=== PATIENT | male | born 1950 | race Caucasian/White ===

== ENCOUNTER 2020-06-16 12:34 | Outpatient (REF) | payer MEDICARE, OTHER, SELFPAY ==
--- NOTE | 2020-06-16 13:13 | XR_ITS ---
EXAMINATION: XR SHOULDER, LEFT CLINICAL INFORMATION: Left shoulder pain COMPARISON: Radiographs left shoulder 05/04/2019. TECHNIQUE: Left shoulder is imaged in 3 views. FINDINGS: There is no fracture, dislocation, destructive process. The acromioclavicular alignment is normal. Again, there are degenerative changes acromioclavicular joint and some mild spurring superior lateral acromium likely at origin deltoid. There is curvilinear calcification possibly in region of subscapularis best seen on transscapular view, in retrospect stable. Otherwise, no visible rotator cuff calcifications. XR/XR shoulder LT min 2V IMPRESSION: 1. Degenerative changes acromioclavicular joint with spurring superior lateral acromium. 2. Benign calcification possibly in region of distal subscapularis. 3. Findings similar to prior exam 05/04/2019.
[2020-06-16 14:06] LABS: INTERNATIONAL NORM RATIO 2.6 (0.9-1.1); Prothrombin Time 31.7 SEC (10.8-13.0)
== END 2020-06-16 12:35 | disposition home or self-care (01) ==
LOC: HO.HMGCLDS 12:34
PROVIDERS: PCP Nurse Practitioner Family; Visit Provider Nurse Practitioner Family
DX: M25.512 Pain in left shoulder (principal)
CPT/HCPCS: 36415; 73030; 85610

== ENCOUNTER → 2020-07-14 09:03 | Outpatient (BNVA) | payer MEDICARE, OTHER, SELFPAY | PROVIDERS: PCP Nurse Practitioner Family; Visit Provider Internal Medicine | DX: I48.0 Paroxysmal atrial fibrillation (principal); Z51.81 Encounter for therapeutic drug level monitoring; Z79.01 Long term (current) use of anticoagulants | CPT/HCPCS: 85610; 99211 ==

== ENCOUNTER → 2020-07-21 09:38 | Outpatient (BNVA) | payer MEDICARE, OTHER, SELFPAY | PROVIDERS: PCP Nurse Practitioner Family; Visit Provider Internal Medicine | DX: I48.0 Paroxysmal atrial fibrillation (principal); Z79.01 Long term (current) use of anticoagulants; Z51.81 Encounter for therapeutic drug level monitoring | CPT/HCPCS: 85610; 99211 ==

== ENCOUNTER → 2020-07-30 09:16 | Outpatient (BNVA) | payer MEDICARE, OTHER, SELFPAY | PROVIDERS: PCP Nurse Practitioner Family; Visit Provider Internal Medicine | DX: I48.0 Paroxysmal atrial fibrillation (principal); Z51.81 Encounter for therapeutic drug level monitoring; Z79.01 Long term (current) use of anticoagulants | CPT/HCPCS: 85610; 99211 ==

== ENCOUNTER 2020-08-19 07:21 | Outpatient (REF) | payer MEDICARE, OTHER, SELFPAY | END 2020-08-19 07:22 | disposition home or self-care (01) | LOC: HO.LAB 07:21 | PROVIDERS: PCP Nurse Practitioner Family; Visit Provider Internal Medicine | DX: Z20.828 Contact with and (suspected) exposure to other viral communicable diseases (principal) | CPT/HCPCS: C9803; U0003 ==

== ENCOUNTER → 2020-08-27 09:08 | Outpatient (BNVA) | payer MEDICARE, SELFPAY | PROVIDERS: PCP Nurse Practitioner Family; Visit Provider Internal Medicine | DX: I48.0 Paroxysmal atrial fibrillation (principal); Z51.81 Encounter for therapeutic drug level monitoring; Z79.01 Long term (current) use of anticoagulants | CPT/HCPCS: 85610; 99211 ==

== ENCOUNTER → 2020-09-03 07:36 | Outpatient (BNVA) | payer MEDICARE, SELFPAY | PROVIDERS: PCP Nurse Practitioner Family; Visit Provider Internal Medicine | DX: Z13.89 Encounter for screening for other disorder (principal) | CPT/HCPCS: Q3014 ==

== ENCOUNTER 2020-09-04 06:45 | Outpatient (REF) | payer MEDICARE, SELFPAY ==
[2020-09-04 11:31] LABS: INTERNATIONAL NORM RATIO 2.2 (0.9-1.1); Prothrombin Time 26.1 SEC (10.8-13.0)
[2020-09-04 11:32] LABS: Estimated Average Glucose 117 mg/dL; Hemoglobin A1c % 5.7 %
[2020-09-04 11:41] LABS: Alanine Aminotransferase 21 U/L (0-40); Albumin Level 4.4 g/dL (3.5-5.0); Alkaline Phosphatase 69 U/L (39-117); Anion Gap 12 (12-20); Aspartate Amino Transferase 21 U/L (5-37); Bilirubin Total 0.5 mg/dL (0.0-1.0); Blood Urea Nitrogen 19 mg/dL (9-16); Carbon Dioxide 30 mmol/L (22-29); Chloride 102 mmol/L (96-108); Cholesterol 226 mg/dL; Estimated Glomerular Filt Rate > 60; Glucose Random 93 mg/dL (60-115); HDL Cholesterol 42 mg/dL; LDL Cholesterol Calculated 157 mg/dl; Potassium 4.5 mmol/l (3.3-5.1); Sodium 139 mmol/L (135-145); Total Protein 6.9 g/dL (6.5-8.0); Triglycerides 136 mg/dL
[2020-09-04 12:05] LABS: Thyroid Stimulating Hormone 2.11 uIU/mL (0.32-4.0); Vitamin D 25-OH Total 27.2 ng/mL (>30)
[2020-09-05 05:53] LABS: LDL Cholesterol Direct 161 mg/dL (<100)
== END 2020-09-04 06:46 | disposition home or self-care (01) ==
LOC: HO.HMGCLDS 06:45
PROVIDERS: Nurse Practitioner Family; PCP Nurse Practitioner Family; Visit Provider Internal Medicine
DX: R73.03 Prediabetes (principal); E78.5 Hyperlipidemia, unspecified; M25.512 Pain in left shoulder; E04.1 Nontoxic single thyroid nodule
CPT/HCPCS: 36415; 80053; 80061; 82306; 83036; 83721; 84443; 85610

== ENCOUNTER 2020-09-10 10:23 | Outpatient (REF) | payer MEDICARE, SELFPAY ==
--- NOTE | 2020-09-10 10:26 | US_ITS ---
EXAMINATION: US THYROID CLINICAL INFORMATION: Thyroid nodule. COMPARISON: Previous thyroid ultrasound May 2019 TECHNIQUE: Linear transducer prabhakar-scale and color Doppler examination with attention to the region of the thyroid. FINDINGS: SIZE: Measurements of the thyroid lobes and nodules are given in sagittal, anteroposterior and transverse dimensions respectively. Right Thyroid Lobe: 4.8 x 1.7 x 1.5 cm, volume 6.1 mL. Parenchyma: The gland echotexture is normal. Thyroid vascularity is normal. Left Thyroid Lobe: 5.1 x 1.8 x 1.5 cm, volume 7.2 mL. Parenchyma: The gland echotexture is normal. Thyroid vascularity is normal. Isthmus: 0.5 cm in maximum AP dimension. RIGHT THYROID LOBE: No nodules. ISTHMUS: No nodules. LEFT THYROID LOBE: There is 1 nodule. This measures 0.6 x 0.3 x 0.3 in the midpole. This is hypoechoic and cystic, has smooth margin, no calcification and no intranodular flow. NODES: No lymphadenopathy is seen in the tissue surrounding the thyroid gland. US/US thyroid IMPRESSION: Stable small left thyroid nodule.
== END 2020-09-10 10:24 | disposition home or self-care (01) ==
LOC: HO.HMGCX 10:23
PROVIDERS: Visit Provider Internal Medicine
DX: E04.1 Nontoxic single thyroid nodule (principal)
CPT/HCPCS: 76536

== ENCOUNTER → 2020-09-16 10:03 | Outpatient (BNVA) | payer MEDICARE, SELFPAY | PROVIDERS: PCP Nurse Practitioner Family; Visit Provider Internal Medicine Cardiovascular Disease | DX: I48.0 Paroxysmal atrial fibrillation (principal); I25.10 Atherosclerotic heart disease of native coronary artery without angina pectoris | CPT/HCPCS: 93005; 99212 ==

== ENCOUNTER → 2020-10-27 08:06 | Outpatient (BNVA) | payer MEDICARE, SELFPAY | PROVIDERS: PCP Nurse Practitioner Family; Visit Provider Internal Medicine | DX: Z13.89 Encounter for screening for other disorder (principal) | CPT/HCPCS: Q3014 ==

== ENCOUNTER 2020-11-20 10:23 | Outpatient (REF) | payer MEDICARE, SELFPAY ==
[2020-11-20 13:38] LABS: MANUAL DIFF FLAG NO
[2020-11-20 14:01] LABS: Basophils Percent Auto 0.4 % (0-2); Eosinophils Absolute Auto 0.1 X10*3/uL (0.0-0.4); Eosinophils Percent Auto 1.2 % (0-4); Hematocrit 40.1 % (42-52); Hemoglobin 13.3 g/dl (14.0-18.0); Imm Gran Abs Auto 0.01 X10*3/uL (0.00-0.03); Imm Gran Pct Auto 0.2 % (0.0-0.4); Lymphocytes Absolute Auto 1.2 X10*3/uL (1.2-4.9); Lymphocytes Percent Auto 21.6 % (20-40); Mean Corpuscular HGB Conc 33.2 g/dl (31.0-36.0); Mean Corpuscular Hemoglobin 30.5 pg (27.0-33.0); Mean Platelet Volume 11.6 fL (9.4-12.4); Monocytes Absolute Auto 0.6 X10*3/uL (0.1-1.2); Monocytes Percent Auto 11.1 % (2-11); Neutrophils Absolute Auto 3.7 X10*3/uL (2.0-8.3); Neutrophils Percent Auto 65.5 % (45-73); Platelet Count 180 X10*3/uL (160-400); Red Blood Count 4.36 X10*6/uL (4.60-5.80); Red Cell Distribution Width 13.9 % (11.0-16.0); White Blood Count 5.6 X10*3/uL (4.8-10.8)
[2020-11-20 14:03] LABS: Estimated Average Glucose 111 mg/dL; Hemoglobin A1c % 5.5 %
[2020-11-20 14:06] LABS: Anion Gap 11 (12-20); Blood Urea Nitrogen 15 mg/dL (9-16); Calcium 9.2 mg/dL (8.4-10.2); Carbon Dioxide 29 mmol/L (22-29); Chloride 103 mmol/L (96-108); Estimated Glomerular Filt Rate > 60; Glucose Random 82 mg/dL (60-115); Iron 55 mcg/dL (45-160); Percent Iron Saturation 18 % (15-50); Potassium 4.6 mmol/L (3.3-5.1); Sodium 138 mmol/L (135-145); Total Iron Binding Capacity 311 mcg/dL (228-428); Unsaturated Iron Binding 256 ug/dL
[2020-11-20 14:26] LABS: Vitamin D 25-OH Total 26.1 ng/mL (>30)
== END 2020-11-20 10:24 | disposition home or self-care (01) ==
LOC: HO.10HDL 10:23
PROVIDERS: Visit Provider Internal Medicine
DX: E11.9 Type 2 diabetes mellitus without complications (principal); D64.9 Anemia, unspecified; I10 Essential (primary) hypertension; E55.9 Vitamin D deficiency, unspecified
CPT/HCPCS: 36415; 80048; 82306; 83036; 83540; 85025

== ENCOUNTER → 2020-12-16 13:02 | Outpatient (BNVA) | payer MEDICARE, SELFPAY | PROVIDERS: PCP Internal Medicine; Visit Provider Dietitian, Registered | DX: E78.5 Hyperlipidemia, unspecified (principal) | CPT/HCPCS: 97803 ==

== ENCOUNTER → 2021-01-26 08:19 | Outpatient (BNVA) | payer MEDICARE, SELFPAY | PROVIDERS: PCP Internal Medicine; Visit Provider Internal Medicine | CPT/HCPCS: Q3014 ==

== ENCOUNTER → 2021-01-27 12:39 | Outpatient (BNVA) | payer MEDICARE, SELFPAY | PROVIDERS: PCP Internal Medicine; Visit Provider Dietitian, Registered | DX: E78.5 Hyperlipidemia, unspecified (principal) | CPT/HCPCS: 97803 ==

== ENCOUNTER → 2021-02-03 11:27 | Outpatient (BNVA) | payer MEDICARE, SELFPAY | PROVIDERS: PCP Internal Medicine; Visit Provider Nurse Practitioner Family | DX: G47.33 Obstructive sleep apnea (adult) (pediatric) (principal) | CPT/HCPCS: Q3014 ==

== ENCOUNTER → 2021-04-21 10:37 | Outpatient (BNVA) | payer MEDICARE, SELFPAY | PROVIDERS: PCP Internal Medicine; Visit Provider Dietitian, Registered | DX: E66.9 Obesity, unspecified (principal); R73.03 Prediabetes; I25.10 Atherosclerotic heart disease of native coronary artery without angina pectoris; I48.0 Paroxysmal atrial fibrillation; E78.5 Hyperlipidemia, unspecified; E55.9 Vitamin D deficiency, unspecified; Z87.891 Personal history of nicotine dependence; Z88.0 Allergy status to penicillin; Z88.8 Allergy status to other drugs, medicaments and biological substances; Z95.1 Presence of aortocoronary bypass graft | CPT/HCPCS: 97803 ==

== ENCOUNTER → 2021-05-06 08:13 | Outpatient (BNVA) | payer MEDICARE, SELFPAY | PROVIDERS: PCP Internal Medicine; Visit Provider Internal Medicine | DX: E78.5 Hyperlipidemia, unspecified (principal); E04.1 Nontoxic single thyroid nodule; R73.03 Prediabetes | CPT/HCPCS: Q3014 ==

== ENCOUNTER → 2021-06-02 12:35 | Outpatient (BNVA) | payer MEDICARE, SELFPAY | PROVIDERS: PCP Internal Medicine; Visit Provider Dietitian, Registered | DX: E78.5 Hyperlipidemia, unspecified (principal); R73.03 Prediabetes | CPT/HCPCS: 97803 ==

== ENCOUNTER 2021-06-03 06:47 | Outpatient (REF) | payer MEDICARE, SELFPAY ==
[2021-06-03 12:10] LABS: Alanine Aminotransferase 22 U/L (0-40); Albumin Level 4.1 g/dL (3.5-5.0); Alkaline Phosphatase 63 U/L (39-117); Anion Gap 10 (12-20); Aspartate Amino Transferase 20 U/L (5-37); Bilirubin Total 0.6 mg/dL (0.0-1.0); Blood Urea Nitrogen 21 mg/dL (9-16); Calcium 9.2 mg/dL (8.4-10.2); Carbon Dioxide 28 mmol/L (22-29); Chloride 105 mmol/L (96-108); Cholesterol 175 mg/dL; Estimated Glomerular Filt Rate > 60; Glucose Random 95 mg/dL (60-115); HDL Cholesterol 29 mg/dL; LDL Cholesterol Calculated 94 mg/dl; Potassium 4.8 mmol/L (3.3-5.1); Sodium 138 mmol/L (135-145); Total Protein 6.3 g/dL (6.5-8.0); Triglycerides 263 mg/dL
[2021-06-03 12:36] LABS: Free T4 (Free Thyroxine) 0.86 ng/dL (0.71-1.85); Thyroid Stimulating Hormone 1.41 uIU/mL (0.32-4.0)
[2021-06-04 08:12] LABS: LDL Cholesterol Direct 98 mg/dL (<100)
== END 2021-06-03 06:48 | disposition home or self-care (01) ==
LOC: HO.HMGCLDS 06:47
PROVIDERS: PCP Internal Medicine; Visit Provider Internal Medicine
DX: E78.5 Hyperlipidemia, unspecified (principal); E04.1 Nontoxic single thyroid nodule
CPT/HCPCS: 36415; 80053; 80061; 83721; 84439; 84443

== ENCOUNTER 2021-06-19 10:01 | Outpatient (REF) | payer MEDICARE, SELFPAY ==
[2021-06-19 13:18] LABS: MANUAL DIFF FLAG NO
[2021-06-19 13:28] LABS: Estimated Average Glucose 120 mg/dL; Hemoglobin A1c % 5.8 %
[2021-06-19 13:29] LABS: Basophils Percent Auto 0.2 % (0-2); Eosinophils Absolute Auto 0.1 X10*3/uL (0.0-0.4); Eosinophils Percent Auto 1.7 % (0-4); Hematocrit 42.1 % (42-52); Hemoglobin 13.8 g/dl (14.0-18.0); Imm Gran Abs Auto 0.02 X10*3/uL (0.00-0.03); Imm Gran Pct Auto 0.4 % (0.0-0.4); Lymphocytes Absolute Auto 1.3 X10*3/uL (1.2-4.9); Lymphocytes Percent Auto 23.8 % (20-40); Mean Corpuscular HGB Conc 32.8 g/dl (31.0-36.0); Mean Corpuscular Hemoglobin 30.7 pg (27.0-33.0); Mean Corpuscular Volume 93.8 fL (80-98); Mean Platelet Volume 11.9 fL (9.4-12.4); Monocytes Absolute Auto 0.6 X10*3/uL (0.1-1.2); Monocytes Percent Auto 11.3 % (2-11); Neutrophils Absolute Auto 3.3 X10*3/uL (2.0-8.3); Neutrophils Percent Auto 62.6 % (45-73); Platelet Count 154 X10*3/uL (160-400); Red Blood Count 4.49 X10*6/uL (4.60-5.80); Red Cell Distribution Width 13.3 % (11.0-16.0); White Blood Count 5.3 X10*3/uL (4.8-10.8)
[2021-06-19 13:51] LABS: Iron 124 mcg/dL (45-160); Percent Iron Saturation 40 % (15-50); Total Iron Binding Capacity 309 mcg/dL (228-428); Unsaturated Iron Binding 185 ug/dL
== END 2021-06-19 10:02 | disposition home or self-care (01) ==
LOC: HO.10HDL 10:01
PROVIDERS: Visit Provider Internal Medicine
DX: Z13.89 Encounter for screening for other disorder (principal)
CPT/HCPCS: 36415; 83036; 83540; 85025

== ENCOUNTER → 2021-08-11 08:33 | Outpatient (BNVA) | payer MEDICARE, SELFPAY | PROVIDERS: PCP Internal Medicine; Referring Provider Internal Medicine; Visit Provider Nurse Practitioner Family | DX: G47.33 Obstructive sleep apnea (adult) (pediatric) (principal) | CPT/HCPCS: 99212 ==

== ENCOUNTER 2021-09-22 06:46 | Outpatient (REF) | payer MEDICARE, SELFPAY ==
[2021-09-22 12:10] LABS: Alanine Aminotransferase 24 U/L (0-40); Albumin Level 4.1 g/dL (3.5-5.0); Alkaline Phosphatase 64 U/L (39-117); Anion Gap 11 (12-20); Aspartate Amino Transferase 24 U/L (5-37); Bilirubin Total 0.9 mg/dL (0.0-1.0); Blood Urea Nitrogen 20 mg/dL (9-16); Calcium 9.6 mg/dL (8.4-10.2); Carbon Dioxide 27 mmol/L (22-29); Chloride 106 mmol/L (96-108); Cholesterol 183 mg/dL; Estimated Glomerular Filt Rate > 60; Glucose Fasting 94 mg/dL (60-99); HDL Cholesterol 34 mg/dL; LDL Cholesterol Calculated 109 mg/dl; Potassium 4.5 mmol/L (3.3-5.1); Sodium 139 mmol/L (135-145); Total Protein 6.6 g/dL (6.5-8.0); Triglycerides 200 mg/dL
== END 2021-09-22 06:47 | disposition home or self-care (01) ==
LOC: HO.HMGCLDS 06:46
PROVIDERS: Visit Provider Internal Medicine
DX: E11.9 Type 2 diabetes mellitus without complications (principal); I25.10 Atherosclerotic heart disease of native coronary artery without angina pectoris; E78.5 Hyperlipidemia, unspecified
CPT/HCPCS: 36415; 80053; 80061

== ENCOUNTER → 2021-09-29 10:19 | Outpatient (BNVA) | payer MEDICARE, SELFPAY | PROVIDERS: PCP Internal Medicine; Referring Provider Internal Medicine; Visit Provider Internal Medicine Cardiovascular Disease | DX: I25.10 Atherosclerotic heart disease of native coronary artery without angina pectoris (principal); I48.0 Paroxysmal atrial fibrillation | CPT/HCPCS: 93005; 99212 ==

== ENCOUNTER 2021-09-29 11:33 | Outpatient (REF) | payer MEDICARE, SELFPAY ==
--- NOTE | ~2021-09-29 | XR_ITS ---
EXAMINATION: XR SHOULDER, RIGHT CLINICAL INFORMATION: Right shoulder pain. COMPARISON: None TECHNIQUE: AP external rotation, Grashey, scapular Y, and axillary views of the right shoulder. FINDINGS: ACROMIOCLAVICULAR JOINT: There is xdiz-nh-kqcsysjo hypertrophic osteoarthritis. GLENOHUMERAL JOINT: There is chondrocalcinosis. There are marginal osteophytes along the inferior aspect of the joint indicative of yzny-zj-pzzjntlu osteoarthritis. There is calcification in the region of rotator cuff. ADDITIONAL FINDINGS: Sternotomy wires partially visualized in the chest. The most proximally positioned sternotomy wire is fractured as seen on prior x-rays. XR/XR shoulder RT min 2V IMPRESSION: Osteoarthritis of the right shoulder joints. Calcification in the region of rotator cuff. This can be seen with calcific tendinitis/calcific tendinosis.
--- NOTE | ~2021-09-29 | XR_ITS ---
EXAMINATION: XR RIBS, RIGHT CLINICAL INFORMATION: Right rib pain. COMPARISON: X-rays of the chest April 2019 TECHNIQUE: 3 views of the right ribs were obtained. FINDINGS: Lungs are clear. No consolidation, pneumothorax, or pleural effusion. The cardiomediastinal silhouette and pulmonary vasculature are normal. Sternotomy wires noted. Fractured proximal sternotomy wire, unchanged. Osseous structures are unremarkable. Ribs are intact. No fractures are identified. XR/XR ribs RT min 3V w CXR1V IMPRESSION: No evidence of rib fracture or rib abnormality.
== END 2021-09-29 11:34 | disposition home or self-care (01) ==
LOC: HO.XRAY 11:33
PROVIDERS: PCP Internal Medicine; Visit Provider Internal Medicine
DX: R07.81 Pleurodynia (principal); M25.511 Pain in right shoulder
CPT/HCPCS: 71101; 73030

== ENCOUNTER 2021-10-26 06:53 | Outpatient (REF) | payer MEDICARE, SELFPAY ==
--- NOTE | ~2021-10-26 | MR_ITS ---
EXAMINATION: MR SHOULDER WITHOUT CONTRAST, RIGHT CLINICAL INFORMATION: Status post fall. Cannot lift right arm. COMPARISON: None. TECHNIQUE: MRI of the shoulder without contrast was performed on a high-field scanner. FINDINGS: ROTATOR CUFF: A punctate focus of metallic susceptibility artifact at the tuberosity is consistent with prior rotator cuff repair. A recurrent high-grade tear of the supraspinatus and infraspinatus tendons measures 4.5 cm AP and is largely full-thickness. A few residual intact fibers are suspected near the site of prior repair and at the posterior margin of the infraspinatus tendon. There is a longitudinal component to this tear at the posterior margin of the infraspinatus which propagates medially by approximately 4 cm. There is delamination and retraction of articular-sided fibers by 4 cm the level of the glenoid fossa. Susceptibility artifact is evident around the subscapularis tendon, consistent with postsurgical changes. There is a defect in its cephalad third measuring approximately 0.8 x 2 cm (craniocaudal by longitudinal). There is moderate associated subscapularis tendinosis. There is gyji-oh-ulpixfth atrophy and grade 2 fatty replacement at the supraspinatus, infraspinatus, and cephalad half of the subscapularis. BICEPS: The tendon of the long head of the biceps is torn and distally retracted. CORACOACROMIAL ARCH: The undersurface of the acromion is remodeled status post acromioplasty with no subacromial spur. Moderate acromioclavicular osteoarthritis. Small volume of fluid in the subacromial-subdeltoid bursa is likely reactive to the rotator cuff tear and may extend from the glenohumeral joint. LABRUM/CAPSULE: Superior labrum is blunted. There is a tear of the anterior labrum from the 4 o'clock position extending cephalad to the superior 12 o'clock position. Inferior glenohumeral ligament is normal. GLENOHUMERAL JOINT/MARROW: Small moderate-0sized marginal osteophytes are present at the humeral head and, to a lesser extent, the glenoid. Mild nonuniform chondral thinning at the glenoid is most pronounced superiorly. Articular cartilage loss with cortical irregularity and non-marginal osteophyte formation are noted at the cephalad margin of the humeral head. There is mild nonuniform chondral thinning at the medial aspect of the humeral head with full-thickness chondral fissures and a known marginal osteophyte. Small joint effusion. MR/MR shoulder RT wo con IMPRESSION: 1. Recurrent high-grade insertional tear of the supraspinatus and infraspinatus tendon status post prior rotator cuff repair. This tear is largely full-thickness with a few residual intact fibers near the site of prior repair, a longitudinal component at the posterior margin of the infraspinatus, and retraction of delaminated undersurface fibers. Cjsu-zp-levrtbbl muscle atrophy and fatty replacement. 2. Extensive postsurgical changes at the subscapularis tendon with a full-thickness partial tear of the more cephalad fibers at the insertion and ohhq-yb-bvgthbid associated atrophy. 3. Akxq-ca-dbxaintb glenohumeral osteoarthritis with a tear of the anterior labrum. 4. Moderate acromioclavicular osteoarthritis. 5. Torn and distally retracted biceps tendon.
--- NOTE | ~2021-10-26 | XR_ITS ---
EXAMINATION: XR ORBITS PRE-MRI SCREENING CLINICAL INFORMATION: History of right eye repair COMPARISON: None TECHNIQUE: 3 views of the orbits are obtained. FINDINGS: No evidence of radiopaque orbital foreign body. Orbital rims are intact. The paranasal sinuses appear clear. Sella turcica is not enlarged. Dental amalgam is noted. XR/XR pre mri screening IMPRESSION: No evidence of radiopaque orbital foreign body.
== END 2021-10-26 06:54 | disposition home or self-care (01) ==
LOC: HO.MRI 06:53
PROVIDERS: PCP Internal Medicine; Visit Provider Internal Medicine
DX: M25.511 Pain in right shoulder (principal)
CPT/HCPCS: 73221

== ENCOUNTER → 2021-11-04 10:02 | Outpatient (BNVA) | payer MEDICARE, SELFPAY | PROVIDERS: PCP Internal Medicine; Visit Provider Internal Medicine | DX: E78.5 Hyperlipidemia, unspecified (principal); E04.1 Nontoxic single thyroid nodule; R73.03 Prediabetes | CPT/HCPCS: Q3014 ==

== ENCOUNTER 2021-11-13 08:41 | Outpatient (REF) | payer MEDICARE, SELFPAY ==
--- NOTE | ~2021-11-13 | MM_ITS ---
EXAMINATION: BONE DENSITOMETRY CLINICAL INDICATION: Other specified disorders of teeth and supporting structures. COMPARISON: This is the patient's baseline examination. TECHNIQUE: Using a [employer] DXA System (software version: 13.1) manufactured by [employer], dual-energy x-ray absorptiometry was performed of the lumbar spine and left hip. The images are of good technical quality. Summary results are attached. FINDINGS: AP SPINE L1-L4: BMD 1.602 g/cm2, Z-score 3.1, T-score 3.2, normal. LEFT FEMUR, NECK: BMD 1.028 g/cm2, Z-score 0.5, T-score -0.3, normal. LEFT FEMUR, TOTAL: BMD 1.190 g/cm2, Z-score 1.0, T-score 0.6, normal. IDENTIFIED RISK FACTORS: None listed. HISTORY OF FRACTURE: None listed. MEDICATIONS: Calcium supplement and/or multivitamin. Vitamin D. MM/XR DEXA axial skeleton IMPRESSION: 1. DIAGNOSIS: Normal bone density based on the lowest T-score value of -0.3 in the femoral neck applying World Health Organization criteria. 2. 10-YEAR FRACTURE RISK PREDICTION, FRAX: Major osteoporotic fracture (clinical spine, forearm, hip or shoulder) 4.7%. Hip fracture 0.5%. 3. Treatment Recommendations: NOF guidelines recommend consideration for treatment in postmenopausal women and men age 50 and older presenting with the following: -A hip or vertebral (clinical or morphometric) fracture. -T-score less than or equal to -2.5 at the femoral neck or spine after appropriate evaluation to exclude secondary causes. -Low bone mass at the hip or spine and a 10-year fracture probability by FRAX of greater than or equal to 3% for hip fracture or greater than or equal to 20% for major osteoporotic fracture based on the [place] adapted WHO algorithm. 4. Other Recommendations: All treatment decisions require clinical judgment and consideration of individual patient factors, including patient preferences, comorbidities, previous drug use, risk factors not captured in the FRAX model (e.g. frailty, falls, vitamin D deficiency, increased bone turnover, interval significant decline in bone density) and possible under or overestimation of fracture risk by FRAX. FUTURE SCAN RECOMMENDATION: People with diagnosed cases of osteoporosis or at high risk for fracture should have regular bone mineral density tests. For patients eligible for Medicare, routine testing is allowed once every 2 years. The testing frequency can be increased to one year for patients who have rapidly progressing disease, those who are receiving or discontinuing medical therapy to restore bone mass, or have additional risk factors.
== END 2021-11-13 08:42 | disposition home or self-care (01) ==
LOC: HO.MAMMO 08:41
PROVIDERS: Visit Provider Internal Medicine
DX: Z13.820 Encounter for screening for osteoporosis (principal); K08.89 Other specified disorders of teeth and supporting structures; E55.9 Vitamin D deficiency, unspecified; Z79.899 Other long term (current) drug therapy
CPT/HCPCS: 77080

== ENCOUNTER → 2021-11-19 11:20 | Outpatient (BNVA) | payer SELFPAY | PROVIDERS: PCP Internal Medicine; Visit Provider Physician Assistant | DX: Z02.79 Encounter for issue of other medical certificate (principal) ==

== ENCOUNTER 2021-11-20 12:43 | Outpatient (REF) | payer MEDICARE, SELFPAY ==
--- NOTE | ~2021-11-20 | US_ITS ---
EXAMINATION: US THYROID CLINICAL INFORMATION: Nontoxic single thyroid nodule. COMPARISON: Ultrasound soft tissue head/neck thyroid dated 09/10/2020 and 05/29/2019. TECHNIQUE: Linear transducer grayscale and color Doppler examination with attention to the region of the thyroid. FINDINGS: SIZE: Measurements of the thyroid lobes and nodules are given in sagittal, anteroposterior and transverse dimensions respectively. Right Thyroid Lobe: 5.3 x 2.0 x 1.5 cm, volume 7.9 mL. Previously 4.75 x 1.68 x 1.46 cm, volume 6.08 mL. Parenchyma: The gland echotexture is homogeneous. Thyroid vascularity is normal. Left Thyroid Lobe: 5.4 x 1.9 x 1.6 cm, volume 8.5 mL. Previously 5.07 x 1.83 x 1.47 cm, volume 7.17 mL. Parenchyma: The gland echotexture is homogeneous. Thyroid vascularity is normal. Isthmus: 0.82 cm in maximum AP dimension. Previously 0.50 cm. Estimated total number of nodules greater than or equal to 1 cm: 0. Applications Developer nodules are described as follows: 1. Location: Left mid. Size: 0.48 x 0.41 x 0.52 cm, volume 0.05 mL. Previously: 0.60 x 0.32 x 0.30 cm, volume 0.03 mL. Nodule characteristics: Composition: Cystic(0). ACR TI-RADS total points: 0 ACR TI-RADS category: 1 Significant change in size (>/= 20% in 2 dimensions and minimal increase of 2 mm or 50% or greater increase in volume): No Change in features: No Change in ACR TI-RADS risk category: No NODES: No lymphadenopathy is seen in the tissue surrounding the thyroid gland. US/US thyroid IMPRESSION: Small stable cystic left nodule. ACR TI-RADS RECOMMENDATION REFERENCE: Ultrasound-guided fine-needle aspiration, followup ultrasound, no further follow up. * TR1 (0 point) and TR 2 (2 points): No FNA or follow up * TR3 (3 points): FNA if more than or equal to 2.5 cm in maximum dimension, followup ultrasound in 1, 3 and 5 years if 1.5 to 2.4 cm in maximum dimension. * TR4 (4-6 points): FNA if more than or equal to 1.5 cm in maximum dimension, followup ultrasound in 1, 2, 3 and 5 years if 1 to 1.4 cm in maximum dimension. * TR5 (more than or equal to 7 points): FNA if more than or equal to 1 cm in maximum dimension, followup ultrasound every year for 5 years if 0.5 to 0.9 cm in maximum dimension. * TR3, TR4 or TR5 nodules that are below the size threshold for follow up receive no follow up.
== END 2021-11-20 12:44 | disposition home or self-care (01) ==
LOC: HO.HMGCX 12:43
PROVIDERS: Visit Provider Internal Medicine
DX: E04.1 Nontoxic single thyroid nodule (principal)
CPT/HCPCS: 76536

== ENCOUNTER → 2021-12-21 13:12 | Outpatient (BNVA) | payer SELFPAY | PROVIDERS: PCP Internal Medicine; Visit Provider Dietitian, Registered | DX: E78.5 Hyperlipidemia, unspecified (principal); R73.03 Prediabetes | CPT/HCPCS: 97803 ==

== ENCOUNTER 2022-04-01 11:25 | Outpatient (REF) | payer MEDICARE, SELFPAY ==
[2022-04-01 13:41] LABS: MANUAL DIFF FLAG NO
[2022-04-01 13:44] LABS: Basophils Percent Auto 0.4 % (0-2); Eosinophils Absolute Auto 0.1 X10*3/uL (0.0-0.4); Eosinophils Percent Auto 1.4 % (0-4); Hematocrit 40.8 % (42.0-52.0); Hemoglobin 13.3 g/dl (14.0-18.0); Imm Gran Abs Auto 0.02 X10*3/uL (0.00-0.03); Imm Gran Pct Auto 0.4 % (0.0-0.4); Lymphocytes Absolute Auto 1.3 X10*3/uL (1.2-4.9); Lymphocytes Percent Auto 24.9 % (20-40); Mean Corpuscular HGB Conc 32.6 g/dl (31.0-36.0); Mean Corpuscular Hemoglobin 30.4 pg (27.0-33.0); Mean Corpuscular Volume 93.2 fL (80.0-98.0); Mean Platelet Volume 11.4 fL (9.4-12.4); Monocytes Absolute Auto 0.5 X10*3/uL (0.1-1.2); Monocytes Percent Auto 10.1 % (2-11); Neutrophils Absolute Auto 3.2 x10*3/uL (2.0-8.3); Neutrophils Percent Auto 62.8 % (45-73); Platelet Count 161 X10*3/uL (160-400); Red Blood Count 4.38 X10*6/uL (4.60-5.80); Red Cell Distribution Width 13.7 % (11.0-16.0); White Blood Count 5.1 X10*3/uL (4.8-10.8)
[2022-04-01 14:01] LABS: Alanine Aminotransferase 25 U/L (0-40); Albumin Level 4.2 g/dL (3.5-5.0); Alkaline Phosphatase 81 U/L (39-117); Anion Gap 14 (12-20); Aspartate Amino Transferase 23 U/L (5-37); Bilirubin Total 0.6 mg/dL (0.0-1.0); Blood Urea Nitrogen 22 mg/dL (9-16); Calcium 9.4 mg/dL (8.4-10.2); Carbon Dioxide 27 mmol/L (22-29); Chloride 102 mmol/L (96-108); Estimated Glomerular Filt Rate > 60; Glucose Random 95 mg/dL (60-115); Potassium 4.6 mmol/L (3.3-5.1); Sodium 138 mmol/L (135-145); Total Protein 6.8 g/dL (6.5-8.0)
[2022-04-01 14:02] LABS: Estimated Average Glucose 120 mg/dL; Hemoglobin A1c % 5.8 %
[2022-04-01 14:31] LABS: Creatinine Urine 110.78 mg/dL; Microalbum/Creatinine Ratio Ur 24.3 ug/mg cr
== END 2022-04-01 11:26 | disposition home or self-care (01) ==
LOC: HO.10HDL 11:25
PROVIDERS: Visit Provider Internal Medicine
DX: E11.9 Type 2 diabetes mellitus without complications (principal); I25.10 Atherosclerotic heart disease of native coronary artery without angina pectoris; I10 Essential (primary) hypertension; I48.0 Paroxysmal atrial fibrillation
CPT/HCPCS: 36415; 80053; 82043; 83036; 85025

== ENCOUNTER 2022-04-19 09:49 | Outpatient (REF) | payer MEDICARE, SELFPAY ==
[2022-04-19 11:38] LABS: Hematocrit 41.3 % (42.0-52.0); Hemoglobin 13.4 g/dl (14.0-18.0); Mean Corpuscular HGB Conc 32.4 g/dl (31.0-36.0); Mean Corpuscular Volume 92.6 fL (80.0-98.0); Mean Platelet Volume 11.5 fL (9.4-12.4); Platelet Count 169 X10*3/uL (160-400); Red Blood Count 4.46 X10*6/uL (4.60-5.80); Red Cell Distribution Width 13.7 % (11.0-16.0); White Blood Count 5.6 X10*3/uL (4.8-10.8)
== END 2022-04-19 09:50 | disposition home or self-care (01) ==
LOC: HO.HMGCLDS 09:49
PROVIDERS: PCP Internal Medicine; Visit Provider Internal Medicine Gastroenterology
DX: K62.5 Hemorrhage of anus and rectum (principal)
CPT/HCPCS: 36415; 85027

== ENCOUNTER → 2022-04-22 13:32 | Outpatient (BNVA) | payer MEDICARE, SELFPAY | PROVIDERS: PCP Internal Medicine; Visit Provider Internal Medicine Gastroenterology | DX: Z01.818 Encounter for other preprocedural examination (principal); K62.5 Hemorrhage of anus and rectum | CPT/HCPCS: 99202 ==

== ENCOUNTER 2022-04-30 07:24 | Day surgery (SDC) | payer MEDICARE, SELFPAY ==
--- NOTE | 2022-04-27 | ECG_ITS ---
Test Reason : preop Blood Pressure : / mmHG Vent. Rate : 059 BPM Atrial Rate : 059 BPM P-R Int : 158 ms QRS Dur : 100 ms QT Int : 422 ms P-R-T Axes : 046 012 058 degrees QTc Int : 417 ms Sinus bradycardia with occasional Premature ventricular complexes Possible Left atrial enlargement Incomplete right bundle branch block Borderline ECG When compared with ECG of 04-MAY-2019 20:48, Premature ventricular complexes are now Present Vent. rate has decreased BY [address] no longer elevated in Inferior leads Referred By: Marielle Diana Electronically Signed By:SOPHIE BARBOSA
[2022-04-27 12:22] VITALS: BP 141/71; PULSE 64; RESP 20; O2SAT 96; BMI 31.5
--- NOTE | 2022-04-27 12:37 | HO.ANESPROP2 ---
Documented by User: Marielle Diana NP 04/28/22 13:38 HPI - Anesthesia Eval Consult details Narrative: 71yo M for Upper Endoscopy and Colonoscopy Eliquis for afib Pending ekg, ? cardiac clear Stable at 09/2021 yearly cardiac appointment, f/u 09/2022 ANGIE with CPAP [facility] Active Problems Active Problems: All Active Problems (Updated 04/27/22 @ 12:31 by Katiana Royal RN) Shoulder pain, left (Acute) Ecchymosis (Acute) Plantar wart of left foot (Acute) Current use of anticoagulant therapy (Acute) Severe obstructive sleep apnea (Acute) Rectal bleeding (Acute) Paroxysmal atrial fibrillation (Acute) CAD (coronary artery disease) (Acute) Vitamin D deficiency (Acute) Thyroid nodule (Acute) Obesity (Acute) HLD (hyperlipidemia) (Acute) Prediabetes (Acute) Past Medical History Medical History Arthritis CAD (coronary artery disease) Decreased hearing of left ear HLD (hyperlipidemia) Obesity Pancreatitis Paroxysmal atrial fibrillation Prediabetes Renal calculi Sleep apnea Thyroid nodule Vitamin D deficiency Family History Family History Father CVD (cardiovascular disease) Mother CVD (cardiovascular disease) Hypertension Family history of problems with anesthesia: No Surgical History Surgical History H/O colonoscopy History of tonsillectomy and adenoidectomy Hx of appendectomy Hx of coronary artery bypass graft Hx of cystoscopy Hx of lithotripsy Hx of shoulder surgery History of Problems with Anesthesia: No Social History Social History Household Members: Spouse Are you a primary manager intensive care unit to a significant other at home: No Do you presently have visiting nurse or other home services: No Alcohol intake: current Alcohol intake frequency: holidays/special occasions only Patient Tobacco Use Status: Former Tobacco user Quit Date: 1972 Tobacco use type: Cigarette Cigarette Packs Per Day: 1 Years Smoked: 5 Use of substances other than those prescribed or required for medical reasons: No Have you been hit, kicked, punched, or otherwise hurt by someone within the past year? If so, by whom?: No Are you DNR?: No Advance Directives: Yes Advance Directives Information Provided: Yes Advance Directives on File: Yes Advance Directives Date on File: 06/20/13 Recently lost weight without trying: No Eating poorly because of decreased appetite: No Nutrition Risks: No Nutritional Risk Poor oral hygiene: No (some missing teeth) Narrative Narrative: No recent illness No CP/SOB with >4 mets Meds Allergies Allergy/AdvReac Type Severity Reaction Status Date / Time penicillin V Allergy Intermediate hives Verified 04/30/22 07:42 lisinopril AdvReac Mild scratchy Verified 04/30/22 07:42 throat Home Medications Medication Instructions Recorded Confirmed Last Taken Type cholecalciferol (vitamin D3) 25 25 mcg PO DAILY 08/11/21 04/27/22 Unknown History mcg (1,000 unit) capsule cinnamon bark 500 mg capsule 1,000 mg PO BEDTIME 08/11/21 04/27/22 04/28/22 History (Cinnamon) loratadine 10 mg tablet (Claritin) 10 mg PO DAILY 08/11/21 04/27/22 Unknown History magnesium 200 mg tablet 400 mg PO BEDTIME 08/11/21 04/27/22 Unknown History metformin 500 mg tablet,extended 500 mg PO QAM 08/11/21 04/27/22 Unknown History release 24 hr omega-3 fatty acids 1,000 mg 1,000 mg PO BEDTIME 08/11/21 04/27/22 04/28/22 History capsule (Fish Oil Concentrate) amlodipine 2.5 mg tablet 2.5 mg PO BEDTIME 04/27/22 04/27/22 Unknown History krill 1 cap PO QAM 04/27/22 04/27/22 04/28/22 History [id number]-gpg-fw1-jze-astax 1,500 mg-165 mg-67.5 mg capsule (Krill Oil (Hardaway 3 and 6)) turmeric 400 mg capsule 400 mg PO DAILY 04/27/22 04/27/22 Unknown History Exam Exam Date and Time: April 27, 2022 1237 Height,Weight and Vital Signs: Height 5 ft 11 in Weight 102.512 kg Last Vital Signs Pulse 64 04/27/22 12:22 Resp 20 04/27/22 12:22 BP 141/71 H 04/27/22 12:22 Pulse Ox 96 04/27/22 12:22 O2 Del Method 04/27/22 12:22 Pertinent Lab Results Pertinent Lab Results: Laboratory Tests 04/01/22 04/19/22 11:40 09:54 WBC 5.6 Hgb 13.4 L Hct 41.3 L Plt Count 169 Sodium 138 Potassium 4.6 Chloride 102 Carbon Dioxide 27 BUN 22 H Creatinine 0.90 Narrative Narrative: EKG 04/2022 Vent. Rate : 059 BPM ? ? Atrial Rate : 059 BPM ?? P-R Int : 158 ms? QRS Dur : 100 ms ? ? QT Int : 422 ms ? ? ? P-R-T Axes : 046 012 058 degrees ?? QTc Int : 417 ms ? Sinus bradycardia with occasional Premature ventricular complexes Possible Left atrial enlargement Incomplete right bundle branch block Borderline ECG When compared with ECG of 04-MAY-2019 20:48, Premature ventricular complexes are now Present Vent. rate has decreased BY? [address] no longer elevated in Inferior leads ECHO 2019 Nml biV function No RWMA No signif valve or pericard path Airway Mallampati Class: II TM Dist: <=3cm Neck ROM: Full Loose/Missing/Broken Teeth: Yes (Molars missing) Heart: RRR Lungs: CTAB Assessment and Plan Assessment Anesthesia Assessment: Anesthesia Plan Discussed and PAT Visit Final Anesthetic Review Family History of Problems with Anesthesia: No History of Problems with Anesthesia: No Documented by User: Vanessa Su MD 04/30/22 08:31 [facility] Past Medical History Medical History Arthritis CAD (coronary artery disease) Decreased hearing of left ear HLD (hyperlipidemia) Obesity Pancreatitis Paroxysmal atrial fibrillation Prediabetes Renal calculi Sleep apnea Thyroid nodule Vitamin D deficiency Functional capacity: independent ambulation Family History Family History Father CVD (cardiovascular disease) Mother CVD (cardiovascular disease) Hypertension Surgical History Surgical History H/O colonoscopy History of tonsillectomy and adenoidectomy Hx of appendectomy Hx of coronary artery bypass graft Hx of cystoscopy Hx of lithotripsy Hx of shoulder surgery Social History Social History Household Members: Spouse Are you a primary manager intensive care unit to a significant other at home: No Do you presently have visiting nurse or other home services: No Alcohol intake: current Alcohol intake frequency: holidays/special occasions only Patient Tobacco Use Status: Former Tobacco user Quit Date: 1972 Tobacco use type: Cigarette Cigarette Packs Per Day: 1 Years Smoked: 5 Use of substances other than those prescribed or required for medical reasons: No Have you been hit, kicked, punched, or otherwise hurt by someone within the past year? If so, by whom?: No Are you DNR?: No Advance Directives: Yes Advance Directives Information Provided: Yes Advance Directives on File: Yes Advance Directives Date on File: 06/20/13 Recently lost weight without trying: No Eating poorly because of decreased appetite: No Nutrition Risks: No Nutritional Risk Poor oral hygiene: No (some missing teeth) Meds Allergies Allergy/AdvReac Type Severity Reaction Status Date / Time penicillin V Allergy Intermediate hives Verified 04/30/22 07:42 lisinopril AdvReac Mild scratchy Verified 04/30/22 07:42 throat Home Medications Medication Instructions Recorded Confirmed Last Taken Type cholecalciferol (vitamin D3) 25 25 mcg PO DAILY 08/11/21 04/27/22 Unknown History mcg (1,000 unit) capsule cinnamon bark 500 mg capsule 1,000 mg PO BEDTIME 08/11/21 04/27/22 04/28/22 History (Cinnamon) loratadine 10 mg tablet (Claritin) 10 mg PO DAILY 08/11/21 04/27/22 Unknown History magnesium 200 mg tablet 400 mg PO BEDTIME 08/11/21 04/27/22 Unknown History metformin 500 mg tablet,extended 500 mg PO QAM 08/11/21 04/27/22 Unknown History release 24 hr omega-3 fatty acids 1,000 mg 1,000 mg PO BEDTIME 08/11/21 04/27/22 04/28/22 History capsule (Fish Oil Concentrate) amlodipine 2.5 mg tablet 2.5 mg PO BEDTIME 04/27/22 04/27/22 Unknown History krill 1 cap PO QAM 04/27/22 04/27/22 04/28/22 History [id number]-[id number]-gl1-asx-astax 1,500 mg-165 mg-67.5 mg capsule (Krill Oil (Hardaway 3 and 6)) turmeric 400 mg capsule 400 mg PO DAILY 04/27/22 04/27/22 Unknown History Exam Airway Mallampati Class: IV TM Dist: >3cm Assessment and Plan Final Anesthetic Review ASA Class: III Final Preanesthetic Review: No Changes in Pt Med Stat, Meds/Allgs Chart Reviewed, Consent Obtained/Reviewed and Anes Risks/Benef Reviewed Patient Risk: Intermediate Procedure Risk: Low Anesthetic Plan Anesthetic Plan: MAC: Disposition: Standard PACU
[2022-04-30] VITALS (7 sets, daily range): BP systolic 83–152; BP diastolic 40–78; PULSE 55–59; RESP 16–18; TEMP 36.2–36.8; O2SAT 92–100
--- NOTE | 2022-04-30 07:54 | MHC.SHP ---
Pre-Procedural Eval Section A Date of Service: 04/30/22 The patient is an INPATIENT: No Changes since office visit: Yes Patient answered all questions; No Cold of Flu in the past 2 weeks, No New Medical Problems and No Changes in Medication The History & Physical has been completed within 30 days and I have reviewed it.: Yes Section B Chief Complaint: screening,bleeding, Allergies: Allergies Allergy/AdvReac Type Severity Reaction Status Date / Time penicillin V Allergy Intermediate hives Verified 04/30/22 07:42 lisinopril AdvReac Mild scratchy Verified 04/30/22 07:42 throat Plan I have reviewed the history and physical and performed a pertinent physical examination on my patient. No changes have occurred unless specified.
[2022-04-30] MEDS: Lactated Ringers 1,000 ML 100 ML IVCONT (07:55)
[2022-04-30 08:03] LABS: Glucose, Whole Blood 104 mg/dL (60-115)
--- NOTE | 2022-04-30 09:31 | P.BOP_ITS ---
Brief Operative Note Date of Service: 04/30/22 Pre-op diagnosis: Colon cancer screening, rectal bleeding, GERD Post-op diagnosis: other (Hiatal hernia, GERD, colon polyp, diverticulosis, hemorrhoids) Procedure: FLEXIBLE TRANSORAL UPPER GASTROINTESTINAL ENDOSCOPY WITH BIOPSIES AND COLONOSCOPY TILL CECUM WITH SNARE POLYPECTOMY UPPER ENDOSCOPY Consent: Indications for the procedure and potential complications of bleeding, perforation, reaction to medications and missed diagnosis were discussed with the patient and informed consent was obtained. Instrument: Olympus GIF H 190 mid size upper endoscope Monitoring: Vital signs and clinical assessment, continuous EKG monitoring, Pulse oximetry, Carbon Dioxide monitoring and blood pressure monitoring were done throughout the procedure. Procedure: The patient was placed in the left lateral decubitis position and pre-procedure medications were administered and a bite block was placed. The endoscope was inserted into the mouth and advanced under direct vision to the third part of duodenum. A careful inspection was made as the upper endoscope was withdrawn including a retroflexed examination of the proximal stomach; Findings and interventions are described below. Findings: Larynx: Normal Esophagus: GE junction at 40 cms, small hiatal hernia 40 to 42 cms. Three 1-2 cms tongues of suspected Montes's - biopsied. A 2 cms inlet patch at 30 cms - biopsied. No esophagitis. Stomach: Normal gastric mucosa. Grade 3 flap valve on retroflexed examination of the cardia. Duodenum: Normal bulb and descending duodenum Intervention: Biopsies as noted above COLONOSCOPY PROCEDURE NOTE Consent: Indications for the procedure and potential complications of bleeding, perforation, reaction to medications and missed diagnosis were discussed with the patient and informed consent was obtained. Instrument: Olympus PCF H 190 L variable stiffness pediatric colonoscope Monitoring: Vital signs and clinical assessment, intermittent blood pressure monitoring, continuous EKG monitoring, Pulse oximetry and Carbon Dioxide monitoring were done throughout the procedure. Colon withdrawl time was 21 minutes. Procedure: The patient was placed in the left lateral decubitis position and pre-procedure medications were administered. After a digital rectal examination of the ano-rectum, the video colonoscope was inserted into the rectum and advanced through the colon to the cecum. The colonoscope was slowly withdrawn in a retrograde panoramic fashion and the colon mucosa was carefully examined including a retroflexed view of the rectum. Findings and interventions are described below. Procedure Difficulty: : LLQ pressure applied to intubate the cecum Findings: Terminal Ileum: Not evaluated Cecum: Normal Ascending Colon: A 7-8 mm sessile polyp in the proximal AC removed with a hot snare. Transverse Colon: Normal Descending Colon: Moderate diverticulosis Sigmoid Colon: Moderate diverticulosis Rectum: Normal Ano-rectum: Moderate internal hemorrhoids - likely source of rectal bleeding Colon preparation: Good after some irrigation. Impression and Post Procedure Diagnosis: Endoscopy Findings: ESOPHAGUS: GE junction at 40 cms, small hiatal hernia 40 to 42 cms. Three 1-2 cms tongues of suspected Montes's - biopsied. A 2 cms inlet patch at 30 cms - biopsied. No esophagitis. STOMACH: Normal gastric mucosa. Grade 3 flap valve on retroflexed examination of the cardia. Colonoscopy Findings: One small polyp removed Moderate diverticulosis seen in the left colon Moderate hemorrhoids on retroflexed exam. Plan: Await pathology results Patient has an appointment on []in the GI Clinic with [ERIN Alexander] [Crissy Washington NP] [Loly Clancy, [facility]-] [Jenny Sommer M.D.]. Repeat EGD in 1 one year if esophageal biopsies confirm presence of Barretts. Colonoscopy interval based on path results - in 5 years if polyps are adenomatous and due to a hx of colon polyps (adult colonoscope for future colonoscopies). GERD, colon polyps and diverticulosis handouts were given in the discharge area Surgeon: Jenny Sommer MD Anesthesia: MAC Was an Production Miner used for this Procedure?: Yes Production Miner: Yoav Lazar Estimated blood loss (mL): 0 Pathology: other ( A: Ascending colon polyp. B: Distal esophagus rule out Montes. C: Mid-esophagus rule out Montes.) Condition: stable Disposition: PACU
--- NOTE | 2022-04-30 09:36 | W.PM.OPN ---
Operative Note Operative Note Date of Service: 04/30/22 Narrative: Pre-op diagnosis: Colon cancer screening, rectal bleeding, GERD Post-op diagnosis:?other (Hiatal hernia, GERD, colon polyp, diverticulosis, hemorrhoids) Procedure: FLEXIBLE TRANSORAL UPPER GASTROINTESTINAL ENDOSCOPY WITH BIOPSIES AND COLONOSCOPY TILL CECUM WITH SNARE POLYPECTOMY UPPER ENDOSCOPY Consent:?Indications for the procedure and potential complications of bleeding, perforation, reaction to medications and missed diagnosis were discussed with the patient and informed consent was obtained. Instrument:?Olympus GIF H 190 mid size upper endoscope Monitoring: Vital signs and clinical assessment, continuous EKG monitoring, Pulse oximetry, Carbon Dioxide monitoring and blood pressure monitoring were done throughout the procedure. Procedure:?The patient was placed in the left lateral decubitis position and pre-procedure medications were administered and a bite block was placed. The endoscope was inserted into the mouth and advanced under direct vision to the third part of duodenum. A careful inspection was made as the upper endoscope was withdrawn including a retroflexed examination of the proximal stomach; Findings and interventions are described below. Findings: Larynx:? Normal Esophagus:?GE junction at 40 cms, small hiatal hernia 40 to 42 cms.? Three 1-2 cms tongues of suspected Montes's - biopsied.? A 2 cms inlet patch at 30 cms - biopsied.? No esophagitis. Stomach:?Normal gastric mucosa. Grade 3 flap valve on retroflexed examination of the cardia. Duodenum:?Normal bulb and descending duodenum Intervention:?Biopsies as noted above COLONOSCOPY PROCEDURE NOTE Consent:?Indications for the procedure and potential complications of bleeding, perforation, reaction to medications and missed diagnosis were discussed with the patient and informed consent was obtained. Instrument:?Olympus PCF H 190 L variable stiffness pediatric colonoscope Monitoring:?Vital signs and clinical assessment, intermittent blood pressure monitoring, continuous EKG monitoring, Pulse oximetry and Carbon Dioxide monitoring were done throughout the procedure. Colon withdrawl time was 21 minutes. Procedure:?The patient was placed in the left lateral decubitis position and pre-procedure medications were administered. After a digital rectal examination of the ano-rectum, the video colonoscope was inserted into the rectum and advanced through the colon to the cecum. The colonoscope was slowly withdrawn in a retrograde panoramic fashion and the colon mucosa was carefully examined including a retroflexed view of the rectum. Findings and interventions are described below. Procedure Difficulty:?:? LLQ pressure applied to intubate the cecum Findings: Terminal Ileum: Not evaluated Cecum:? Normal Ascending Colon:??A 7-8 mm sessile polyp in the proximal AC removed with a hot snare. Transverse Colon:??Normal Descending Colon:? Moderate diverticulosis Sigmoid Colon:??Moderate diverticulosis Rectum:??Normal Ano-rectum:??Moderate internal hemorrhoids - likely source of rectal bleeding Colon preparation:? Good after some irrigation. Impression and Post Procedure Diagnosis: Endoscopy Findings: ESOPHAGUS: GE junction at 40 cms, small hiatal hernia 40 to 42 cms.? Three 1-2 cms tongues of suspected Montes's - biopsied.? A 2 cms inlet patch at 30 cms - biopsied.? No esophagitis. STOMACH: Normal gastric mucosa. Grade 3 flap valve on retroflexed examination of the cardia. Colonoscopy Findings: One small polyp removed Moderate diverticulosis seen in the left colon Moderate hemorrhoids on retroflexed exam - likely source of rectal bleeding. Plan: Letter will be sent with pathology results Repeat EGD in 1 one year if esophageal biopsies confirm presence of Barretts.? Colonoscopy interval based on path results - in 5 years if polyps are adenomatous and due to a hx of colon polyps (adult colonoscope for future colonoscopies). GERD, colon polyps and diverticulosis handouts were given in the discharge area Surgeon: Jenny Sommer MD Anesthesia:?MAC Was an Water Pump Servicer used for this Procedure?:?Yes Water Pump Servicer:?Yoav Lazar Estimated blood loss (mL):?0 Pathology:?other ( A: Ascending colon polyp.? B: Distal esophagus rule out Montes.? C: Mid-esophagus rule out Montes.) Condition:?stable Disposition:?PACU
--- NOTE | 2022-04-30 13:08 | HO.POSTANES ---
Post Anesthesia Evaluation Post Anesthesia Evaluation Vital Signs: Vital Signs Temp Pulse Resp BP Pulse Ox O2 Del Method O2 Flow Rate 04/30/22 10:19 97.9 F 56 17 121/65 96 Room Air 04/30/22 09:43 89/50 L 04/30/22 10:08 59 18 112/65 100 Simple Mask 8 04/30/22 09:53 58 18 110/65 100 Simple Mask 8 04/30/22 09:51 17 102/49 L 100 Simple Mask 8 04/30/22 09:38 97.1 F 59 16 83/40 L 92 Room Air, Simple Mask 04/30/22 07:34 98.2 F 55 17 152/78 H 95 Room Air Anesthesia: Monitored Mental Status: Awake Pain Control: Satisfactory Nausea/Vomiting: None Hydration: Adequate Anesthesia-Related Issues: No Anes. Related Issues
== END 2022-04-30 11:25 | disposition home or self-care (01) ==
PROVIDERS: PCP Internal Medicine; Visit Provider Internal Medicine Gastroenterology
PROC: (CPT 45385; principal; 2022-04-30 08:30)
DX: Z12.11 Encounter for screening for malignant neoplasm of colon (principal); Z86.010 Personal history of colon polyps; D12.2 Benign neoplasm of ascending colon; K57.30 Diverticulosis of large intestine without perforation or abscess without bleeding; K64.8 Other hemorrhoids; K21.9 Gastro-esophageal reflux disease without esophagitis; K22.70 Barrett's esophagus without dysplasia; K44.9 Diaphragmatic hernia without obstruction or gangrene; Q39.8 Other congenital malformations of esophagus; G47.33 Obstructive sleep apnea (adult) (pediatric); E78.5 Hyperlipidemia, unspecified; I25.10 Atherosclerotic heart disease of native coronary artery without angina pectoris; Z95.1 Presence of aortocoronary bypass graft; I48.0 Paroxysmal atrial fibrillation; R73.03 Prediabetes; E55.9 Vitamin D deficiency, unspecified; Z79.01 Long term (current) use of anticoagulants; Z79.84 Long term (current) use of oral hypoglycemic drugs; Z79.899 Other long term (current) drug therapy; Z99.89 Dependence on other enabling machines and devices; Z88.8 Allergy status to other drugs, medicaments and biological substances; Z88.0 Allergy status to penicillin; Z87.891 Personal history of nicotine dependence; Z87.442 Personal history of urinary calculi
CPT/HCPCS: 45385; 43239; 82947; 88305; 93005; J0461; J2370

== ENCOUNTER 2022-07-01 11:33 | Outpatient (REF) | payer MEDICARE, SELFPAY ==
[2022-07-01 13:35] LABS: MANUAL DIFF FLAG NO
[2022-07-01 13:46] LABS: Basophils Percent Auto 0.2 % (0-2); Eosinophils Absolute Auto 0.1 X10*3/uL (0.0-0.4); Eosinophils Percent Auto 1.1 % (0-4); Hematocrit 41.7 % (42.0-52.0); Hemoglobin 13.8 g/dl (14.0-18.0); Imm Gran Abs Auto 0.02 X10*3/uL (0.00-0.03); Imm Gran Pct Auto 0.4 % (0.0-0.4); Lymphocytes Absolute Auto 1.4 X10*3/uL (1.2-4.9); Lymphocytes Percent Auto 24.8 % (20-40); Mean Corpuscular HGB Conc 33.1 g/dl (31.0-36.0); Mean Corpuscular Hemoglobin 30.7 pg (27.0-33.0); Mean Corpuscular Volume 92.7 fL (80.0-98.0); Mean Platelet Volume 11.9 fL (9.4-12.4); Monocytes Absolute Auto 0.6 X10*3/uL (0.1-1.2); Monocytes Percent Auto 10.3 % (2-11); Neutrophils Absolute Auto 3.5 x10*3/uL (2.0-8.3); Neutrophils Percent Auto 63.2 % (45-73); Platelet Count 158 X10*3/uL (160-400); White Blood Count 5.5 X10*3/uL (4.8-10.8)
[2022-07-01 13:58] LABS: Alanine Aminotransferase 23 U/L (0-40); Albumin Level 4.3 g/dL (3.5-5.0); Alkaline Phosphatase 69 U/L (39-117); Anion Gap 12 (12-20); Aspartate Amino Transferase 23 U/L (5-37); Bilirubin Total 0.6 mg/dL (0.0-1.0); Blood Urea Nitrogen 15 mg/dL (9-16); Calcium 9.4 mg/dL (8.4-10.2); Carbon Dioxide 27 mmol/L (22-29); Chloride 107 mmol/L (96-108); Cholesterol 233 mg/dL; Estimated Glomerular Filt Rate > 60; Glucose Random 92 mg/dL (60-115); Potassium 5.1 mmol/L (3.3-5.1); Sodium 141 mmol/L (135-145); Total Protein 6.8 g/dL (6.5-8.0)
[2022-07-01 14:15] LABS: Estimated Average Glucose 120 mg/dL; Hemoglobin A1c % 5.8 %
== END 2022-07-01 11:34 | disposition home or self-care (01) ==
LOC: HO.10HDL 11:33
PROVIDERS: Visit Provider Internal Medicine
DX: E11.9 Type 2 diabetes mellitus without complications (principal); D64.9 Anemia, unspecified; I48.0 Paroxysmal atrial fibrillation
CPT/HCPCS: 36415; 80053; 82465; 83036; 85025

== ENCOUNTER → 2022-09-02 12:36 | Outpatient (REF) | payer MEDICARE, SELFPAY ==
--- NOTE | 2022-09-02 12:39 | CA_ITS ---
Transthoracic Echocardiogram Patient (Last, First, Middle): Abner Llanos, Gender: Male Date of : 1950 Age: 71 Procedure Date: 09/02/2022 Procedure Type: Transthoracic Echocardiogram Location: OP Height: 180.34 cm Weight: 102.06 kg BSA: 2.22 m2 Heart Rate: 67 bpm BP: 118 / 64 mmHg Wood Preparation Supervisor: KRISTAN Referring MD: Shahram Suarez MD Living Advisor: Shahram Suarez MD Symptoms: I48.0 - Paroxysmal atrial fibrillation Study Quality: Adequate w contrast ECG Rhythm: Sinus Conclusions: - 1. Normal LV systolic function with normal diastolic filling pattern 2. Mild fibrocalcific aortic valve changes noted with normal cardiac valvular Doppler 3. Normal RV systolic pressure 4. Mildly dilated ascending aorta at 3.9 cm 5. No gross pericardial effusion Findings Procedure Information Contrast agent, definity, is being given per protocol without apparent complications. Left Ventricle Normal left ventricular size, thickness, and systolic function. The visually estimated ejection fraction is between 65-70%. Spectral Doppler is indicative of a normal filling pattern. Right Ventricle Normal right ventricular cavity size and systolic function. Atria The left atrium is likely dilated. Interatrial shunt cannot be excluded. The right atrium is normal in size. Aortic Valve There is mild calcification of the aortic valve. There is mild thickening of the aortic valve. There is no aortic valve stenosis. There is no aortic valve regurgitation. Mitral Valve Normal mitral valve structure and function. There is trace mitral valve regurgitation. There is no mitral valve stenosis. Pulmonic Valve The pulmonic valve was not well visualized. Tricuspid Valve Likely normal tricuspid valve structure and function. There is mild tricuspid valve regurgitation. The right ventricular systolic pressure is normal. The right ventricular systolic pressure is 28 mmHg. Normal right atrial pressure. There is no evidence of pulmonary hypertension. Great Vessels The pulmonary artery was not well visualized. There is mild dilatation of the ascending aorta measuring 3.90 cm. Venous The inferior vena cava is normal in size and collapses greater than 50% with inspiration. Pericardium/Pleural There is no evidence of pericardial effusion. Prior Study Comparison Changes noted compared to prior study dated: 05/01/2019. ascending aorta is mildly dilated on this study Measurements 2D Linear Measurements IVSd: 1.06 0.6-0.9/0.6-1.0 cm LVIDd: 5.20 3.9-5.3/4.2-5.9 cm LVIDd Index: 2.34 2.4-3.2/2.2-3.1 cm/m2 LVIDs: 3.18 2.0-3.6 cm LVPWd: 0.82 0.7-1.1 cm LA Diam: 4.90 2.7-3.8/3.0-4.0 cm LAIDs Index: 2.21 1.5-2.3 cm/m2 LV Mass: 223.33 67-162/88-224 g LV Mass Index: 100.60 43-95/49-115 g/m2 LVOT Diam: 2.20 3.0+(-)1.3 cm 2D Systolic Function EF 4C: 65.10 >55% EF 2C: 73.40 >55% EF BiP: 69.40 >55% Mitral Valve MV Pk E: 0.84 MV PK A: 0.68 MV Decel Time: 175.00 E/A: 1.20 E'Lateral: 11.00 E'Medial: 5.66 E/E' Med: 14.80 E/E' Lat: 7.60 PHT: 51.00 MVA PHT: 4.31 Decel [place]: 4.77 Aortic Valve AoV Pk Walter: 1.45 AoV Mn Walter: 1.00 AoV VTI: 0.30 AoV Pk Grad: 8.00 Aov Mn Grad: 5.00 LAMAR Cont.VTI: 3.10 LVOT LVOT Pk Walter: 1.10 LVOT Mn Walter: 0.76 LVOT VTI: 0.24 LVOT Pk Grad: 5.00 LVOT Mn Grad: 3.00 LVOT Diam: 2.20 LVOT Area: 3.80 Diastolic Function MV Pk E: 0.84 MV Pk A: 0.68 E/A: 1.20 E'Medial: 5.66 E/E' Med: 14.80 E' Laterial: 11.00 E/E' Lat: 7.60 Right Ventricle TAPSE (mm): 18.80 TVS' Walter: 12.10 Tricuspid Valve TR Pk Walter: 2.49 TR Pk Grad: 25.00 RA Press: 3.00 RVSP: 28.00 Great Vessels Aorta Sinus of Valsalva: 3.80 2.0-3.5 cm Ao Asc: 3.90 2.1-3.4 cm Pulmonary Valve PV Pk Walter: 1.36 Peak PV Grad: 7.00 Updated in Other Vendor System with Status of Final Shahram Suarez MD electronically signed on 09/03/2022 2:44:02 PM with status of Final
== END ==
LOC: HO.CARD 12:36
PROVIDERS: PCP Internal Medicine; Visit Provider Internal Medicine Cardiovascular Disease
DX: I48.0 Paroxysmal atrial fibrillation (principal)
CPT/HCPCS: 93306; Q9957

== ENCOUNTER 2023-01-18 10:43 | Outpatient (REF) | payer MEDICARE, SELFPAY ==
--- NOTE | ~2023-01-18 | XR_ITS ---
EXAMINATION: XR FEMUR, LEFT CLINICAL INFORMATION: Pain COMPARISON: None available. TECHNIQUE: AP and lateral views of the left femur were obtained. FINDINGS: The bones and soft tissues are normal. No fracture. No osseous lesions. XR/XR femur LT 2V IMPRESSION: Normal left femur.
[2023-01-18 13:56] LABS: MANUAL DIFF FLAG NO
[2023-01-18 14:09] LABS: Estimated Average Glucose 117 mg/dL; Hemoglobin A1C 150.6817 umol/L; Hemoglobin A1c % 5.7 %
[2023-01-18 14:18] LABS: Basophils Percent Auto 0.4 % (0-2); Eosinophils Absolute Auto 0.1 X10*3/uL (0.0-0.4); Eosinophils Percent Auto 1.1 % (0-4); Hematocrit 43.9 % (42.0-52.0); Hemoglobin 14.2 g/dl (14.0-18.0); Imm Gran Abs Auto 0.02 X10*3/uL (0.00-0.03); Imm Gran Pct Auto 0.4 % (0.0-0.4); Lymphocytes Absolute Auto 1.2 X10*3/uL (1.2-4.9); Lymphocytes Percent Auto 21.9 % (20-40); Mean Corpuscular HGB Conc 32.3 g/dl (31.0-36.0); Mean Corpuscular Hemoglobin 30.9 pg (27.0-33.0); Mean Corpuscular Volume 95.4 fL (80.0-98.0); Mean Platelet Volume 11.9 fL (9.4-12.4); Monocytes Absolute Auto 0.4 X10*3/uL (0.1-1.2); Monocytes Percent Auto 7.9 % (2-11); Neutrophils Absolute Auto 3.8 x10*3/uL (2.0-8.3); Neutrophils Percent Auto 68.3 % (45-73); Platelet Count 177 X10*3/uL (160-400); Red Cell Distribution Width 13.6 % (11.0-16.0); White Blood Count 5.6 X10*3/uL (4.8-10.8)
[2023-01-18 14:20] LABS: Appearance Urine Clear; Color Urine Yellow; Glucose Urine UA Negative (Negative); Leukocyte Esterase Urine Negative (Negative); Nitrite Urine Negative (Negative); PH 6.5 (5.0-9.0); Specific Gravity - Urine 1.025 (1.005-1.025); Urine Blood Negative (Negative); Urine Ketones Negative (Negative); Urine Protein Trace mg/dL (Neg-Trace)
[2023-01-18 14:30] LABS: Alanine Aminotransferase 29 U/L (0-40); Albumin Level 4.2 g/dL (3.5-5.0); Alkaline Phosphatase 72 U/L (39-117); Anion Gap 13 (12-20); Aspartate Amino Transferase 23 U/L (5-37); Bilirubin Total 1.1 mg/dL (0.0-1.0); Blood Urea Nitrogen 19 mg/dL (9-16); Calcium 9.5 mg/dL (8.4-10.2); Carbon Dioxide 28 mmol/L (22-29); Chloride 105 mmol/L (96-108); Cholesterol 216 mg/dL; Estimated Glomerular Filt Rate > 60; Glucose Fasting 108 mg/dL (60-99); HDL Cholesterol 34 mg/dL; LDL Cholesterol Calculated 126 mg/dl; Potassium 4.6 mmol/L (3.3-5.1); Sodium 141 mmol/L (135-145); Total Protein 6.8 g/dL (6.5-8.0); Triglycerides 284 mg/dL
[2023-01-18 14:37] LABS: Prostate Specific Antigen 2.39 ng/mL (<0.05-4.0)
[2023-01-18 15:19] LABS: Creatinine Urine 177.45 mg/dL; Microalbum/Creatinine Ratio Ur 25.9 ug/mg cr
== END 2023-01-18 10:44 | disposition home or self-care (01) ==
LOC: HO.HMGCX 10:43
PROVIDERS: PCP Internal Medicine; Visit Provider Internal Medicine
DX: Z12.5 Encounter for screening for malignant neoplasm of prostate (principal); M79.652 Pain in left thigh; E11.9 Type 2 diabetes mellitus without complications; I10 Essential (primary) hypertension
CPT/HCPCS: 36415; 73552; 80053; 80061; 81003; 82043; 83036; 84153; 85025

== ENCOUNTER 2023-06-28 13:34 | Outpatient (AMB) | payer MEDICARE, SELFPAY ==
--- NOTE | 2023-06-28 13:36 | MHC.OFFVIS ---
Intake Vital Signs 06/28/23 13:37 Height 5 ft 11 in Weight 234 lb 2.095 oz BMI 32.7 BP 118/60 Blood Pressure Location Lt brachial Position Sitting Pulse 71 Intake Visit Reasons: 1 year f/up Intake Note: 1 year follow up Shoe Turner Required: No Accompanied by: Spouse Allergies penicillin V Allergy (Intermediate, Verified 06/28/23 13:39) hives lisinopril Adverse Reaction (Mild, Verified 06/28/23 13:39) scratchy throat Medication List - Last Reconciled 06/28/23 by Shahram Suarez MD amlodipine 2.5 mg PO BEDTIME apixaban (Eliquis) 5 mg PO BID cinnamon bark (Cinnamon) 1,000 mg PO BEDTIME loratadine (Claritin) 10 mg PO DAILY magnesium 400 mg PO BEDTIME metformin ER 500 mg PO QAM metoprolol succinate ER 50 mg PO BID omeprazole 20 mg PO DAILY 90 days HPI HPI Comments History of Present Illness Details Abner comes for follow-up. He comes after a very long gap. He denies any cardiac symptoms. Denies any exertional chest pain or shortness of breath. Has not been taking his cholesterol medicines as they are expensive. Last LDL is not well optimized in the 120 range. Denies any prolonged palpitation irregular heartbeat. No bleeding issues or neurologic events. No heart failure symptoms. Takes all other medications. FORMERLY [facility], [facility] Medical History Pancreatitis Arthritis Renal calculi Decreased hearing of left ear Sleep apnea Paroxysmal atrial fibrillation CAD (coronary artery disease) Vitamin D deficiency Thyroid nodule Obesity HLD (hyperlipidemia) Prediabetes Surgical History Hx of lithotripsy Hx of cystoscopy H/O colonoscopy Hx of coronary artery bypass graft Hx of shoulder surgery History of tonsillectomy and adenoidectomy Hx of appendectomy Family History Father CVD (cardiovascular disease) Mother CVD (cardiovascular disease) Hypertension Social History Household Members: Spouse Are you a primary care process manager to a significant other at home: No Do you presently have visiting nurse or other home services: No Alcohol intake: current Alcohol intake frequency: holidays/special occasions only Patient Tobacco Use Status: Former Tobacco user Quit Date: 1972 Tobacco use type: Cigarette Cigarette Packs Per Day: 1 Years Smoked: 5 Advance Directives Date on File: 06/20/13 Review of Systems Const Denies weakness ENT Denies dizziness Card Denies chest pain, Denies chest pain with activity, Denies syncope, Denies rapid heart rate, Denies pedal edema, Denies edema, Denies leg edema, Denies lightheadedness, Denies palpitations, Denies dyspnea, Denies dyspnea on exertion and Denies orthopnea Resp Denies cough, Denies dyspnea and Denies dyspnea on exertion GI Denies hematochezia and Denies change in stool character Musc Denies abnormal gait, Denies muscle cramps, Denies muscle weakness, Denies numbness, Denies radiating pain into limb and Denies tingling Neuro Denies abnormal gait, Denies dizziness, Denies syncope, Denies numbness, Denies tingling and Denies weakness Endo Denies palpitations Physical Exam Vital Signs: Last Vital Signs Pulse 71 06/28/23 13:37 BP 118/60 06/28/23 13:37 BMI result Body Mass Index 32.7 Const General: cooperative, comfortable, no acute distress, alert and awake Nutritional Appearance: obese Orientation/consciousness: patient oriented x3 Limitations: no limitations Neck Neck: Yes trachea midline, Yes supple and Yes no JVD Carotids: no bruits Chest Chest palpation & inspection: normal inspection of the chest and other (Well-healed sternotomy scar) Resp Effort & Inspection: normal respiratory effort Auscultation: clear to auscultation bilaterally Cardio Jugular venous distension: no JVD Palpation: normal PMI Rate: regular rate Rhythm: regular rhythm Heart sounds: S1 normal heart sound present, S2 normal heart sound present and Other heart sounds present (S4 present) GI Auscultation: normal bowel sounds Skin General skin exam: no rashes or lesions noted Neuro General: patient oriented x3 and no focal motor deficits Extrem General: Yes no clubbing, cyanosis or edema Psych Appearance: grossly normal Office Procedures EKG Details: EKG shows normal sinus rhythm with possible left atrial enlargement [id number], Complete Assessment & Plan Assessment & Plan (1) CAD (coronary artery disease): Comment: follows w/[facility] yearly Code(s): I25.10 - Atherosclerotic heart disease of [place] coronary artery without angina pectoris Plan: CAD status post coronary bypass grafting more than 5 years ago. Will schedule a exercise myocardial perfusion imaging to evaluate for graft patency for surveillance. Continue aggressive medical therapy. Currently on full oral anticoagulation with Eliquis and with therefore avoid aspirin therapy. Blood pressure is currently well optimized. Continue current treatment. Advised to monitor blood pressure at home maintain a log. Goal blood pressure less than 130/84. Importance of lipid modification was discussed to preserve graft patency as well as to prevent progressive CAD. Will represcribed PCSK9 inhibitor therapy to target goal LDL closer to 60 mg/dL. Continue aggressive management of prediabetes. Continue participate in heart healthy lifestyle as well as weight reduction. (2) Paroxysmal atrial fibrillation: Comment: follows w/[facility] yearly Code(s): I48.0 - Paroxysmal atrial fibrillation Plan: Paroxysmal atrial fibrillation with no clinical recurrence. Continue aggressive medical therapy. Avoidance of stimulants was discussed. Continue full oral anticoagulation with Eliquis. Semi annual renal function test should be pursued. Avoidance of stimulants was discussed. No indication for antiarrhythmic drug therapy but needs to continue pursue rhythm control approach. Will follow up in the clinic in 1 year's time, sooner p.r.n.. Thank you for allowing me to partake in his care Orders: Orders CA stress test Today I25.10 - Atherosclerotic heart disease of [place] coronary artery without angina pectoris NM cardiolite stress test 2 Weeks I25.10 - Atherosclerotic heart disease of [place] coronary artery without angina pectoris, R07.9 - Chest pain, unspecified CA echo transthoracic complete Today I48.0 - Paroxysmal atrial fibrillation Medications: New alirocumab (Praluent Pen) 75 mg subcut Q14D 2 mL 5RF I48.0 - Paroxysmal atrial fibrillation Coding Level of Care Code Est Pt Level 4 (15829) Diagnoses CAD (coronary artery disease) I25.10 Paroxysmal atrial fibrillation I48.0 CPT Codes EKG - CPT: 31646-[id number], Complete ([id number])
[2023-06-28 13:37] VITALS: BP 118/60; PULSE 71; BMI 32.7
== END 2023-06-28 14:04 | disposition home or self-care (01) ==
PROVIDERS: PCP Internal Medicine; Visit Provider Internal Medicine Cardiovascular Disease
DX: I25.10 Atherosclerotic heart disease of native coronary artery without angina pectoris (principal); I48.0 Paroxysmal atrial fibrillation
CPT/HCPCS: 93010; 99214

== ENCOUNTER → 2023-06-28 13:34 | Outpatient (BNVA) | payer MEDICARE, SELFPAY | PROVIDERS: PCP Internal Medicine; Visit Provider Internal Medicine Cardiovascular Disease | DX: I48.0 Paroxysmal atrial fibrillation (principal); I25.10 Atherosclerotic heart disease of native coronary artery without angina pectoris; I10 Essential (primary) hypertension; R07.9 Chest pain, unspecified; Z95.1 Presence of aortocoronary bypass graft | CPT/HCPCS: 93005; 99212 ==

== ENCOUNTER 2023-07-08 06:56 | Outpatient (REF) | payer MEDICARE, SELFPAY ==
[2023-07-08 11:28] LABS: MANUAL DIFF FLAG NO
[2023-07-08 11:37] LABS: Basophils Percent Auto 0.2 % (0-2); Eosinophils Absolute Auto 0.1 X10*3/uL (0.0-0.4); Eosinophils Percent Auto 1.3 % (0-4); Hemoglobin 14.4 g/dl (14.0-18.0); Imm Gran Abs Auto 0.01 X10*3/uL (0.00-0.03); Imm Gran Pct Auto 0.2 % (0.0-0.4); Lymphocytes Absolute Auto 1.2 X10*3/uL (1.2-4.9); Lymphocytes Percent Auto 25.6 % (20-40); Mean Corpuscular Hemoglobin 30.6 pg (27.0-33.0); Mean Corpuscular Volume 95.5 fL (80.0-98.0); Mean Platelet Volume 11.8 fL (9.4-12.4); Monocytes Absolute Auto 0.5 X10*3/uL (0.1-1.2); Monocytes Percent Auto 10.4 % (2-11); Neutrophils Absolute Auto 2.8 x10*3/uL (2.0-8.3); Neutrophils Percent Auto 62.3 % (45-73); Platelet Count 171 X10*3/uL (160-400); Red Blood Count 4.71 X10*6/uL (4.60-5.80); Red Cell Distribution Width 13.8 % (11.0-16.0); White Blood Count 4.5 X10*3/uL (4.8-10.8)
[2023-07-08 11:52] LABS: Estimated Average Glucose 123 mg/dL; Hemoglobin A1C 151.5668 umol/L; Hemoglobin A1c % 5.9 % (<6.0)
[2023-07-08 11:55] LABS: Alanine Aminotransferase 30 U/L (0-40); Albumin Level 4.3 g/dL (3.5-5.0); Alkaline Phosphatase 75 U/L (39-117); Anion Gap 9 (12-20); Aspartate Amino Transferase 26 U/L (5-37); Bilirubin Total 0.8 mg/dL (0.0-1.0); Blood Urea Nitrogen 17 mg/dL (9-16); Calcium 9.5 mg/dL (8.4-10.2); Carbon Dioxide 28 mmol/L (22-29); Chloride 106 mmol/L (96-108); Cholesterol 219 mg/dL (<200); Estimated Glomerular Filt Rate > 60; Glucose Fasting 105 mg/dL (60-99); HDL Cholesterol 39 mg/dL (>40); LDL Cholesterol Calculated 151 mg/dL (<100); Potassium 4.3 mmol/L (3.3-5.1); Sodium 139 mmol/L (135-145); Total Protein 7.3 g/dL (6.5-8.0); Triglycerides 145 mg/dL (<150)
[2023-07-08 12:17] LABS: Creatinine Urine 108.34 mg/dL; Microalbum/Creatinine Ratio Ur 43.3 ug/mg cr (<30)
== END 2023-07-08 06:57 | disposition home or self-care (01) ==
LOC: HO.HMGCLDS 06:56
PROVIDERS: PCP Internal Medicine; Visit Provider Internal Medicine
DX: E11.9 Type 2 diabetes mellitus without complications (principal); I10 Essential (primary) hypertension; I25.10 Atherosclerotic heart disease of native coronary artery without angina pectoris; I48.0 Paroxysmal atrial fibrillation; R79.89 Other specified abnormal findings of blood chemistry; K21.9 Gastro-esophageal reflux disease without esophagitis; K62.5 Hemorrhage of anus and rectum
CPT/HCPCS: 36415; 80053; 80061; 82043; 82570; 83036; 85025

== ENCOUNTER 2023-07-08 08:03 | Outpatient (AMB) | payer MEDICARE, SELFPAY ==
--- NOTE | 2023-07-08 08:04 | MHC.OFFVIS ---
Intake Intake Visit Reasons: EGD pre screening Intake Note: Patient follow up for EGD screening consult. Patient cc: rectal bleeding on and off. Denies any other GI issues. Boarding House Manager Required: No Accompanied by: Self / Same As Patient Allergies penicillin V Allergy (Intermediate, Verified 07/08/23 08:03) hives lisinopril Adverse Reaction (Mild, Verified 07/08/23 08:03) scratchy throat Medication List - Last Reconciled 07/08/23 by Jenny Sommer MD alirocumab (Praluent Pen) 75 mg subcut Q14D amlodipine 2.5 mg PO BEDTIME apixaban (Eliquis) 5 mg PO BID cinnamon bark (Cinnamon) 1,000 mg PO BEDTIME loratadine (Claritin) 10 mg PO DAILY magnesium 400 mg PO BEDTIME metformin ER 500 mg PO QAM metoprolol succinate ER 50 mg PO BID omeprazole 20 mg PO DAILY 90 days HPI EGD pre screening HPI Details Telemedicine visit for this 71 YM with obesity, CAD, HLD, severe sleep apnea, PAF on chronic anticoagulation for follow-up of Barretts esophagus and colon polyps LABS IN [facility] : Reviewed IMAGING STUDIES: Abd CT scan in 2016 showed pancreatic calcifications ENDOSCOPIC STUDIES: 04/2022 EGD AND COLONOSCOPY SHOWED: ESOPHAGUS: GE junction at 40 cms, small hiatal hernia 40 to 42 cms.? Three 1-2 cms tongues of suspected Montes's - biopsied.? A 2 cms inlet patch at 30 cms - biopsied.? No esophagitis. STOMACH: Normal gastric mucosa. Grade 3 flap valve on retroflexed examination of the cardia. Colonoscopy Findings: One small polyp removed Moderate diverticulosis seen in the left colon Moderate hemorrhoids on retroflexed exam - likely source of rectal bleeding. Plan: Repeat EGD in 1 one year if esophageal biopsies confirm presence of Barretts.? Colonoscopy interval based on path results - in 5 years if polyps are adenomatous and due to a hx of colon polyps (adult colonoscope for future colonoscopies). BIOPSIES SHOWED: A. Colon, ascending, polypectomy: Tubular adenoma; negative for high-grade dysplasia or carcinoma. B. Esophagus, distal, biopsy: - Montes esophagus with background moderate chronic active inflammation. - No dysplasia seen. - Squamous epithelium within normal limits. C. Esophagus, mid, biopsy: - Cardiofundic-type mucosa with mild chronic inactive inflammation; no intestinal metaplasia seen. - Squamous mucosa within normal limits 10/[address] ENCINAS: A 4 mm flat polyp (tubular adenoma on bx) was removed from the cecum Moderate sigmoid diverticulosis TODAY'S VISIT: Pt denies heartburn or dysphagia Gives a hx of wt gain to 230 lbs Planning to go to [place] on 07/10 and unsure when he will return to [place] (? Dec, 2023) PAST VISIT: Intermittent rectal bleeding for the past few months. Blood is separate from the stool Some times can pass some light. Denies being dizzy No rectal pain Patient denies symptoms of heartburn, dysphagia, nausea, vomiting, change in appetite or weight. Denies recent change in bowel habits, constipation, diarrhea, black stools or rectal bleeding. Patient denies major cardiac or pulmonary problems, Has sleep apnea and on C Pap Denies problems with anesthesia in the past. On chronic anticoagulation. Patient denies known family history of colon polyps, colon cancer or other GI malignanci PFSH Medical History Pancreatitis Arthritis Renal calculi Decreased hearing of left ear Sleep apnea Paroxysmal atrial fibrillation CAD (coronary artery disease) Vitamin D deficiency Thyroid nodule Obesity HLD (hyperlipidemia) Prediabetes Surgical History Hx of lithotripsy Hx of cystoscopy H/O colonoscopy Hx of coronary artery bypass graft Hx of shoulder surgery History of tonsillectomy and adenoidectomy Hx of appendectomy Family History Father CVD (cardiovascular disease) Mother CVD (cardiovascular disease) Hypertension Social History Household Members: Spouse Are you a primary pet care worker to a significant other at home: No Do you presently have visiting nurse or other home services: No Alcohol intake: current Alcohol intake frequency: holidays/special occasions only Patient Tobacco Use Status: Former Tobacco user Quit Date: 1972 Tobacco use type: Cigarette Cigarette Packs Per Day: 1 Years Smoked: 5 Advance Directives Date on File: 06/20/13 Review of Systems Const All systems reviewed & are unremarkable except as noted in HPI and below Assessment & Plan Assessment & Plan (1) GERD (gastroesophageal reflux disease): Code(s): K21.9 - Gastro-esophageal reflux disease without esophagitis (2) Colon cancer screening: Code(s): Z12.11 - Encounter for screening for malignant neoplasm of colon (3) Rectal bleeding: Code(s): K62.5 - Hemorrhage of anus and rectum Plan 72 YM with obesity, CAD, HLD, severe sleep apnea (on CPAP), PAF on chronic anticoagulation with rectal bleeding and to schedule his fu screening colonoscopy 10/[address] ENCINAS: A 4 mm flat polyp (tubular adenoma on bx) was removed from the cecum Moderate sigmoid diverticulosis 04/2022 EGD and colon were performed in findings as noted above. 07/08/23 patient was advised to schedule an upper endoscopy for follow-up of Barretts when he returns from [place] in spring Pt was advised to call a few weeks before his return to schedule an EGD Patient advised to hold Eliquis for 3 days prior to his procedures (needs Cardiology clearance - pt is followed by Dr Suarez). Telehealth Telehealth Location of provider rendering services: practice address Location of patient: address on file Patient Identification confirmed using: Name, : Yes Telehealth method: voice only Patient verbally consented to treatment: Yes Patient verbally consented to billing insurance company: Yes Patient informed of any privacy concerns related to visit: Yes Minutes spent on Phone/Video with Pt.: 15 Coding Level of Care Code Tele Est Pt Level 3 (90187) Diagnoses GERD (gastroesophageal reflux disease) K21.9 Colon cancer screening Z12.11 Rectal bleeding K62.5 Time Spent (min) 15
== END 2023-07-08 08:49 | disposition home or self-care (01) ==
LOC: HO.HGI 08:03
PROVIDERS: PCP Internal Medicine; Visit Provider Internal Medicine Gastroenterology
DX: K21.9 Gastro-esophageal reflux disease without esophagitis (principal); K62.5 Hemorrhage of anus and rectum
CPT/HCPCS: G2252

== ENCOUNTER → 2023-08-18 07:44 | Outpatient (REF) | payer MEDICARE, SELFPAY ==
--- NOTE | ~2023-08-18 | NM_ITS ---
EXERCISE MYOCARDIAL PERFUSION STUDY INDICATION: Coronary artery disease with bypass surgery. Assess for ischemia TECHNIQUE: The patient was brought in for an exercise perfusion study on 08/18/2023. Patient performed exercise as per Basilio protocol and was injected 35 mCi of sestamibi once target heart rate was achieved. Images were obtained using the SPECT gamma camera interlaced with the gating device. Images were obtained in supine position. Resting perfusion study was performed on 08/19/2023. Patient was administered 35 mCi of sestamibi intravenously at rest. Images were then obtained in supine position. Images were processed with the software and compared side to side in short axis, horizontal long axis and vertical long axis views. Total DLP 103mGy-cm. FINDINGS: Raw images were reviewed. The stress perfusion study showed slightly diminished tracer uptake along the inferolateral wall. There is improvement with CT attenuation correction suggestive of diaphragmatic attenuation artifact. The gated study shows normal LV systolic function with calculated LVEF of 45%- however, visually normal. LV cavity is normal in size. The gated study shows normal wall thickening and contraction of segments. Resting study shows diminished tracer uptake along the basal part of inferolateral wall. Possibly artifactual etiology. Gating at rest reveals normal wall motion with ejection fraction at 52%. The findings are consistent with reversible inferolateral defect, probably related to diaphragmatic attenuation artifact. NM/NM cardiolite stress test IMPRESSION: 1. Myocardial perfusion imaging study shows likely normal myocardial perfusion. 2. Gated LVEF is 45% during stress and 52% during rest but visually normal. Correlate with echocardiogram. 3. Transient ischemic dilatation not present. EKG component of the test reported separately.
--- NOTE | 2023-08-18 07:47 | CA_ITS ---
Acquisition Time: 2023-08-18 09:05:04 Total Exercise Time: 00:06:00 Test Indications: AFIB Medications: SEE H Protocol: BARBARA Max HR: 130 BPM 87% of Pred: 149 BPM Max BP: 188/078 mmHG Max Work Load: 7.0 METS Exercise stress test with exercise 6 min of Barbara protocol, achieving 87% MPHR, without anginal symptoms, with isolated PACs and one PVC, with normotensive response to exercise, without EKG changes meeting criteria for ischemia with exercise, in recovery there are nonspecific T wave changes noted in lead I and aVL . Nuclear images pending. Test reviewed with Dr Suarez. Referred By: Shahram Suarez Overread By: LAURA NOLASCO
--- NOTE | 2023-08-18 07:47 | CA_ITS ---
Transthoracic Echocardiogram Patient (Last, First, Middle): Abner Llanos, Gender: Male Date of : 1950 Age: 72 Procedure Date: 08/18/2023 Procedure Type: Transthoracic Echocardiogram Location: OP Height: 180.34 cm Weight: 104.33 kg BSA: 2.24 m2 Heart Rate: bpm BP: 126 / 74 mmHg Greenhouse Grower: TO Referring MD: Shahram Suarez MD Symptoms: I48.0 - Paroxysmal atrial fibrillation Study Quality: Technically Difficult/Contrast ECG Rhythm: Sinus Conclusions: - The left ventricular systolic function is normal. The calculated ejection fraction is 62% by biplane method. - There is mild mitral valve regurgitation. - There is mild tricuspid valve regurgitation. Findings Procedure Information Contrast agent, definity, is being given per protocol without apparent complications. The study quality is limited by patients body habitus. Left Ventricle Normal left ventricular cavity size. There is normal left ventricular wall thickness. The left ventricular systolic function is normal. The calculated ejection fraction is 62% by biplane method. There is no evidence of regional wall motion abnormalities. Diastolic function is normal for age. Right Ventricle Normal right ventricular cavity size and systolic function. Atria The left atrium is mildly dilated. The right atrium is normal in size. Aortic Valve There is a normal trileaflet aortic valve. There is no aortic valve stenosis. There is no aortic valve regurgitation. Mitral Valve The mitral valve appears normal. There is mild mitral valve regurgitation. There is no mitral valve stenosis. Pulmonic Valve There is trace to mild pulmonic valve regurgitation. Tricuspid Valve Normal tricuspid valve structure. There is mild tricuspid valve regurgitation. There is no evidence of pulmonary hypertension. Great Vessels There is mild dilatation of the ascending aorta measuring 3.90 cm. (probably acceptable for BSA). Venous The inferior vena cava is normal in size and collapses greater than 50% with inspiration. Pericardium/Pleural There is no evidence of pericardial effusion. Prior Study Comparison No significant change compared to prior study dated: 09/02/2022. Measurements 2D Linear Measurements IVSd: 1.02 0.6-0.9/0.6-1.0 cm LVIDd: 5.36 3.9-5.3/4.2-5.9 cm LVIDd Index: 2.39 2.4-3.2/2.2-3.1 cm/m2 LVIDs: 3.28 2.0-3.6 cm LVPWd: 1.02 0.7-1.1 cm LA Diam: 5.10 2.7-3.8/3.0-4.0 cm LAIDs Index: 2.28 1.5-2.3 cm/m2 LV Mass: 261.28 67-162/88-224 g LV Mass Index: 116.64 43-95/49-115 g/m2 LVOT Diam: 2.30 3.0+(-)1.3 cm 2D Systolic Function EF 4C: 62.60 >55% EF 2C: 63.20 >55% EF BiP: 61.80 >55% Mitral Valve MV Pk E: 0.54 MV PK A: 0.45 MV Decel Time: 236.00 E/A: 1.20 E'Lateral: 10.40 E'Medial: 5.66 E/E' Med: 9.50 E/E' Lat: 5.20 PHT: 69.00 MVA PHT: 3.19 Decel [place]: 2.27 Aortic Valve AoV Pk Walter: 1.25 AoV Mn Walter: 0.93 AoV VTI: 0.29 AoV Pk Grad: 6.00 Aov Mn Grad: 4.00 LAMAR Cont.VTI: 2.92 LVOT LVOT Pk Walter: 0.87 LVOT Mn Walter: 0.56 LVOT VTI: 0.20 LVOT Pk Grad: 3.00 LVOT Mn Grad: 1.00 LVOT Diam: 2.30 LVOT Area: 4.15 Diastolic Function MV Pk E: 0.54 MV Pk A: 0.45 E/A: 1.20 E'Medial: 5.66 E/E' Med: 9.50 E' Laterial: 10.40 E/E' Lat: 5.20 Right Ventricle TAPSE (mm): 20.40 TVS' Walter: 9.68 Tricuspid Valve TR Pk Walter: 2.38 TR Pk Grad: 23.00 RA Press: 3.00 RVSP: 26.00 Great Vessels Aorta Sinus of Valsalva: 3.80 2.0-3.[address] [place]: 3.35 1.7-3.4 cm Ao Asc: 3.90 2.1-3.4 cm Updated in Other Vendor System with Status of Final Pritesh Stubbs MD electronically signed on 08/20/2023 1:11:09 PM with status of Final
== END ==
LOC: HO.CARD 07:44
PROVIDERS: PCP Internal Medicine; Visit Provider Internal Medicine Cardiovascular Disease
DX: R07.9 Chest pain, unspecified (principal); I25.10 Atherosclerotic heart disease of native coronary artery without angina pectoris; I48.0 Paroxysmal atrial fibrillation
CPT/HCPCS: 78452; 93017; 93306; A9500; Q9957

== ENCOUNTER → 2023-08-18 07:47 | Outpatient (BNV) | payer MEDICARE, SELFPAY | PROVIDERS: PCP Internal Medicine; Visit Provider Nurse Practitioner Family | DX: I25.10 Atherosclerotic heart disease of native coronary artery without angina pectoris (principal) | CPT/HCPCS: 78452; 93016; 93018; 93306 ==

== ENCOUNTER → 2023-09-13 10:56 | Outpatient (BNVA) | payer SELFPAY | PROVIDERS: PCP Internal Medicine; Visit Provider Physician Assistant | DX: Z02.79 Encounter for issue of other medical certificate (principal) ==

== ENCOUNTER 2023-12-29 08:52 | Outpatient (AMB) | payer MEDICARE, SELFPAY ==
--- NOTE | 2023-12-29 08:56 | A.OFFVIS_ITS ---
Vital Signs 12/29/23 08:57 Height 5 ft 11 in Weight 232 lb BMI 32.4 BP 144/66 H Blood Pressure Location Lt brachial Position Sitting Pulse 72 Intake Visit Reasons: EGD screening Intake Note: Patient follow up for EGD screening consult. Patient cc: bloody hemorrhoids on and off. Color Coater Required: No Accompanied by: Self / Same As Patient Allergies penicillin V Allergy (Intermediate, Verified 12/29/23 08:55) hives lisinopril Adverse Reaction (Mild, Verified 12/29/23 08:55) scratchy throat Medication List - Last Reconciled 12/29/23 by Jenny Sommer MD alirocumab (Praluent Pen) 75 mg subcut Q14D amlodipine 2.5 mg PO BEDTIME apixaban (Eliquis) 5 mg PO BID cinnamon bark (Cinnamon) 1,000 mg PO BEDTIME loratadine (Claritin) 10 mg PO DAILY magnesium 400 mg PO BEDTIME metformin ER 500 mg PO QAM metoprolol succinate ER 50 mg PO BID omeprazole 20 mg PO DAILY 90 days HPI HPI EGD screening: Details: GI clinic visit for this 73 YM with obesity, CAD, HLD, severe sleep apnea, PAF on chronic anticoagulation for follow-up of Barretts esophagus and colon polyps LABS IN [facility] : Reviewed IMAGING STUDIES: Abd CT scan in 2016 showed pancreatic calcifications ENDOSCOPIC STUDIES: 04/2022 EGD AND COLONOSCOPY SHOWED: ESOPHAGUS: GE junction at 40 cms, small hiatal hernia 40 to 42 cms.? Three 1-2 cms tongues of suspected Montes's - biopsied.? A 2 cms inlet patch at 30 cms - biopsied.? No esophagitis. STOMACH: Normal gastric mucosa. Grade 3 flap valve on retroflexed examination of the cardia. Colonoscopy Findings: One small polyp removed Moderate diverticulosis seen in the left colon Moderate hemorrhoids on retroflexed exam - likely source of rectal bleeding. Plan: Repeat EGD in 1 one year if esophageal biopsies confirm presence of Barretts.? Colonoscopy interval based on path results - in 5 years if polyps are adenomatous and due to a hx of colon polyps (adult colonoscope for future colonoscopies). BIOPSIES SHOWED: A. Colon, ascending, polypectomy: Tubular adenoma; negative for high-grade dysplasia or carcinoma. B. Esophagus, distal, biopsy: - Montes esophagus with background moderate chronic active inflammation. - No dysplasia seen. - Squamous epithelium within normal limits. C. Esophagus, mid, biopsy: - Cardiofundic-type mucosa with mild chronic inactive inflammation; no intestinal metaplasia seen. - Squamous mucosa within normal limits 10/[address] ENCINAS:A 4 mm flat polyp (tubular adenoma on bx) was removed from the cecum Moderate sigmoid diverticulosis TODAY'S VISIT: Patient cc: bloody hemorrhoids on and off. Rare heartburn and denies dysphagia Gives a hx of wt gain to 230 lbs Rectal bleeding when he strains. PAST VISIT: Planning to go to [place] on 07/10 and unsure when he will return to [place] (? Dec, 2023) Intermittent rectal bleeding for the past few months. Blood is separate from the stool Some times can pass some light. Denies being dizzy No rectal pain Patient denies symptoms of heartburn, dysphagia, nausea, vomiting, change in appetite or weight. Denies recent change in bowel habits, constipation, diarrhea, black stools or rectal bleeding. Patient denies major cardiac or pulmonary problems, Has sleep apnea and on C Pap Denies problems with anesthesia in the past. On chronic anticoagulation. Patient denies known family history of colon polyps, colon cancer or other GI malignancy PFSH Medical History Pancreatitis Arthritis Renal calculi Decreased hearing of left ear Sleep apnea Paroxysmal atrial fibrillation CAD (coronary artery disease) Vitamin D deficiency Thyroid nodule Obesity HLD (hyperlipidemia) Prediabetes Surgical History Hx of lithotripsy Hx of cystoscopy H/O colonoscopy Hx of coronary artery bypass graft Hx of shoulder surgery History of tonsillectomy and adenoidectomy Hx of appendectomy Family History Father CVD (cardiovascular disease) Mother CVD (cardiovascular disease) Hypertension Social History Household Members: Spouse Are you a primary childcare director to a significant other at home: No Do you presently have visiting nurse or other home services: No Alcohol intake: current Alcohol intake frequency: holidays/special occasions only Patient Tobacco Use Status: Former Tobacco user Quit Date: 1972 Tobacco use type: Cigarette Cigarette Packs Per Day: 1 Years Smoked: 5 Advance Directives Date on File: 06/20/13 Review of Systems Const All systems reviewed & are unremarkable except as noted in HPI and below Physical Exam Vital Signs: Last Vital Signs Pulse 72 12/29/23 08:57 BP 144/66 H 12/29/23 08:57 BMI result Body Mass Index 32.4 Const General: cooperative, comfortable, no acute distress, alert and awake Nutritional Appearance: obese Orientation/consciousness: patient oriented x3 Limitations: no limitations Neck Neck: Yes trachea midline, Yes supple and Yes no JVD Carotids: no bruits Chest Chest palpation & inspection: normal inspection of the chest and other (Well- healed sternotomy scar) Resp Effort & Inspection: normal respiratory effort Auscultation: clear to auscultation bilaterally Cardio Jugular venous distension: no JVD Palpation: normal PMI Rate: regular rate Rhythm: regular rhythm Heart sounds: S1 normal heart sound present, S2 normal heart sound present and Other heart sounds present (S4 present) GI Auscultation: normal bowel sounds Skin General skin exam: no rashes or lesions noted Neuro General: patient oriented x3 and no focal motor deficits Extrem General: Yes no clubbing, cyanosis or edema Psych Appearance: grossly normal Assessment & Plan Assessment & Plan (1) Hemorrhoids: Code(s): K64.9 - Unspecified hemorrhoids Category: Medical Plan 73 YM with obesity, CAD, HLD, severe sleep apnea (on CPAP), PAF on chronic anticoagulation with rectal bleeding and to schedule his fu screening colonoscopy 10/2013 [address] BY [address] ENCINAS: A 4 mm flat polyp (tubular adenoma on bx) was removed from the cecum Moderate sigmoid diverticulosis 04/2022 EGD and colon were performed in findings as noted above. 12/29/23 Pt notes rare heartburn and denies dysphagia EGD scheduled on 01/02/24 Patient advised to hold Eliquis for 3 days prior to his procedures (Ok to hold per Dr Suarez). Medications: New hydrocortisone 2.5% 1 appl [place] BID-QID 30 days PRN 30 grams 1RF hemorrhoids K64.9 - Unspecified hemorrhoids Coding Level of Care Code Est Pt Level 3 (42935) Diagnoses Hemorrhoids K64.9 Time Spent (min) 16
[2023-12-29 08:57] VITALS: BP 144/66; PULSE 72; BMI 32.4
== END 2023-12-29 09:50 | disposition home or self-care (01) ==
PROVIDERS: PCP Internal Medicine; Visit Provider Internal Medicine Gastroenterology
DX: K64.9 Unspecified hemorrhoids (principal)
CPT/HCPCS: 99213

== ENCOUNTER → 2023-12-29 08:52 | Outpatient (BNVA) | payer MEDICARE, SELFPAY | PROVIDERS: PCP Internal Medicine; Visit Provider Internal Medicine Gastroenterology | DX: K64.9 Unspecified hemorrhoids (principal) | CPT/HCPCS: 99212 ==

== ENCOUNTER 2024-01-02 06:43 | Day surgery (SDC) | payer MEDICARE, SELFPAY ==
[2023-12-30 07:15] VITALS: BMI 32.4
--- NOTE | 2023-12-30 12:18 | P.CONAN_ITS ---
Documented by User: Marielle Diana NP 12/30/23 12:21 HPI - Anesthesia Eval Consult details Narrative: 73yo M for Upper Endoscopy Eliquis for afib [place] [facility] [place] [facility] [place] for afib, CAD s/p CABG. Optimized per workload message. Last office visit 06/2023 with surveillence echo and stress [place] [facility] Active Problems Active Problems: All Active Problems Hemorrhoids (Acute) GERD (gastroesophageal reflux disease) (Acute) Colon cancer screening (Acute) Shoulder pain, left (Acute) Ecchymosis (Acute) Plantar wart of left foot (Acute) Current use of anticoagulant therapy (Acute) Severe obstructive sleep apnea (Acute) Rectal bleeding (Acute) Paroxysmal atrial fibrillation (Acute) CAD (coronary artery disease) (Acute) Vitamin D deficiency (Acute) Thyroid nodule (Acute) Obesity (Acute) HLD (hyperlipidemia) (Acute) Prediabetes (Acute) Past Medical History Medical History Pancreatitis Arthritis Renal calculi Decreased hearing of left ear Sleep apnea Paroxysmal atrial fibrillation CAD (coronary artery disease) Vitamin D deficiency Thyroid nodule Obesity HLD (hyperlipidemia) Prediabetes Family History Family History Father CVD (cardiovascular disease) Mother CVD (cardiovascular disease) Hypertension Family history of problems with anesthesia: No Surgical History Surgical History Hx of lithotripsy Hx of cystoscopy H/O colonoscopy Hx of coronary artery bypass graft Hx of shoulder surgery History of tonsillectomy and adenoidectomy Hx of appendectomy History of Problems with Anesthesia: No Social History Social History Household Members: Spouse Are you a primary care attendant to a significant other at home: No Do you presently have visiting nurse or other home services: No Alcohol intake: current Alcohol intake frequency: holidays/special occasions only Patient Tobacco Use Status: Former Tobacco user Quit Date: 1972 Tobacco use type: Cigarette Cigarette Packs Per Day: 1 Years Smoked: 5 Advance Directives: No Advance Directives Information Provided: Yes Advance Directives Date on File: 06/20/13 Meds Allergies Allergy/AdvReac Type Severity Reaction Status Date / Time penicillin V Allergy Intermediate hives Verified 12/29/23 08:55 lisinopril AdvReac Mild scratchy Verified 12/29/23 08:55 throat Home Medications ?Medication ?Instructions ?Recorded ?Confirmed ?Last Taken ?Type cinnamon bark 500 mg capsule 1,000 mg PO BEDTIME 08/11/21 01/02/24 04/28/22 History (Cinnamon) loratadine 10 mg tablet (Claritin) 10 mg PO DAILY 08/11/21 01/02/24 Unknown History magnesium 200 mg tablet 400 mg PO BEDTIME 08/11/21 01/02/24 Unknown History metformin 500 mg tablet,extended 500 mg PO QAM 08/11/21 01/02/24 01/02/24 05:30 History release 24 hr amlodipine 2.5 mg tablet 2.5 mg PO BEDTIME 04/27/22 01/02/24 Unknown History metoprolol succinate 50 mg 50 mg PO BID 06/28/23 01/02/24 01/02/24 05:30 History tablet,extended release 24 hr Exam Height,Weight and Vital Signs: Height 5 ft 11 in Weight 105.233 kg Narrative Narrative: ECHO 07/2023 Conclusions: - The left ventricular systolic function is normal. The calculated ejection fraction is 62% by biplane method. - There is mild mitral valve regurgitation. - There is mild tricuspid valve regurgitation. NM cardiolite stress test 07/2023 IMPRESSION: 1. Myocardial perfusion imaging study shows likely normal myocardial perfusion. 2. Gated LVEF is 45% during stress and 52% during rest but visually normal. Correlate with echocardiogram. 3. Transient ischemic dilatation not present. EKG component of the test reported separately Assessment and Plan Assessment Anesthesia Assessment: Chart Reviewed Final Anesthetic Review Family History of Problems with Anesthesia: No History of Problems with Anesthesia: No Documented by User: Ely Gomez MD 01/02/24 07:43 [facility] Past Medical History Medical History Pancreatitis Arthritis Renal calculi Decreased hearing of left ear Sleep apnea Paroxysmal atrial fibrillation CAD (coronary artery disease) Vitamin D deficiency Thyroid nodule Obesity HLD (hyperlipidemia) Prediabetes Family History Family History Father CVD (cardiovascular disease) Mother CVD (cardiovascular disease) Hypertension Surgical History Surgical History Hx of lithotripsy Hx of cystoscopy H/O colonoscopy Hx of coronary artery bypass graft Hx of shoulder surgery History of tonsillectomy and adenoidectomy Hx of appendectomy Social History Social History Household Members: Spouse Are you a primary care attendant to a significant other at home: No Do you presently have visiting nurse or other home services: No Alcohol intake: current Alcohol intake frequency: holidays/special occasions only Patient Tobacco Use Status: Former Tobacco user Quit Date: 1972 Tobacco use type: Cigarette Cigarette Packs Per Day: 1 Years Smoked: 5 Advance Directives: No Advance Directives Information Provided: Yes Advance Directives Date on File: 06/20/13 Meds Allergies Allergy/AdvReac Type Severity Reaction Status Date / Time penicillin V Allergy Intermediate hives Verified 12/29/23 08:55 lisinopril AdvReac Mild scratchy Verified 12/29/23 08:55 throat Home Medications ?Medication ?Instructions ?Recorded ?Confirmed ?Last Taken ?Type cinnamon bark 500 mg capsule 1,000 mg PO BEDTIME 08/11/21 01/02/24 04/28/22 History (Cinnamon) loratadine 10 mg tablet (Claritin) 10 mg PO DAILY 08/11/21 01/02/24 Unknown History magnesium 200 mg tablet 400 mg PO BEDTIME 08/11/21 01/02/24 Unknown History metformin 500 mg tablet,extended 500 mg PO QAM 08/11/21 01/02/24 01/02/24 05:30 History release 24 hr amlodipine 2.5 mg tablet 2.5 mg PO BEDTIME 04/27/22 01/02/24 Unknown History metoprolol succinate 50 mg 50 mg PO BID 06/28/23 01/02/24 01/02/24 05:30 History tablet,extended release 24 hr Exam Airway Mallampati Class: III ( overlay of teeth ) TM Dist: >3cm Neck ROM: Full Heart: rrr Lungs: cta Assessment and Plan Assessment Anesthesia Assessment: Anesthesia Plan Discussed Final Anesthetic Review NPO: Yes ASA Class: III Final Preanesthetic Review: No Changes in Pt Med Stat, Meds/Allgs Chart Reviewed and Consent Obtained/Reviewed Patient Risk: Intermediate Procedure Risk: Intermediate Anesthetic Plan Anesthetic Plan: MAC: Disposition: Standard PACU
--- NOTE | 2024-01-02 07:16 | MHC.SHP ---
Pre-Procedural Eval Section A - 24 Hr Update-Section A only Date of Service: 01/02/24 The patient is an INPATIENT: No The patient has been examined within 24 hours of the surgical procedure. 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 No changes have occurred unless specified. Time Spent With Patient Time: Total time managing care of this patient today ____ minutes.
[2024-01-02 07:22] LABS: Glucose, Whole Blood 110 mg/dL (60-115)
[2024-01-02 07:42] VITALS: BP 154/75; PULSE 58; RESP 16; TEMP 37.1; O2SAT 94; BMI 32.8
--- NOTE | 2024-01-02 08:19 | W.PM.OPN ---
Operative Note Operative Note Date of Service: 01/02/24 Narrative: FLEXIBLE TRANSORAL UPPER GASTROINTESTINAL ENDOSCOPY WITH BIOPSIES UPPER ENDOSCOPY Consent:?Indications for the procedure and potential complications of bleeding, perforation, reaction to medications and missed diagnosis were discussed with the patient and informed consent was obtained. Instrument:?Olympus GIF H 190 mid size upper endoscope Monitoring: Vital signs and clinical assessment, continuous EKG monitoring, Pulse oximetry, Carbon Dioxide monitoring and blood pressure monitoring were done throughout the procedure. Procedure:?The patient was placed in the left lateral decubitis position and pre-procedure medications were administered and a bite block was placed. The endoscope was inserted into the mouth and advanced under direct vision to the third part of duodenum. A careful inspection was made as the upper endoscope was withdrawn including a retroflexed examination of the proximal stomach; Findings and interventions are described below. Findings: Larynx:? Normal Esophagus:?GE junction at 40 cms, small hiatal hernia 40 to 42 cms.? Three 1-2 cms tongues of Montes's - multiple biopsies obtained for histology and Tissue Cypher.? No esophagitis. Stomach:?Normal gastric mucosa. Grade 3 flap valve on retroflexed examination of the cardia. Duodenum:?Normal bulb and descending duodenum Intervention:?Biopsies as noted above Impression and Post Procedure Diagnosis: Endoscopy Findings: ESOPHAGUS: GE junction at 40 cms, small hiatal hernia 40 to 42 cms.? Three 1-2 cms tongues of Montes's - multiple biopsies obtained from histology and Tissue Cypher.?? Plan: Letter will be sent with pathology results Continue omeprazole 20 mg daily Repeat EGD in 3-4 years if no dysplasia on esophageal biopsies.?
[2024-01-02 08:26] VITALS: BP 127/73; PULSE 65; RESP 16; TEMP 36.4; O2SAT 97
[2024-01-02 08:31] LABS: Glucose, Whole Blood 96 mg/dL (60-115)
[2024-01-02 08:41] VITALS: BP 149/87; PULSE 62; RESP 15; O2SAT 97
== END 2024-01-02 09:26 | disposition home or self-care (01) ==
PROVIDERS: PCP Internal Medicine; Visit Provider Internal Medicine Gastroenterology
PROC: 0DJ08ZZ Inspection of Upper Intestinal Tract, Via Natural or Artificial Opening Endoscopic (ICD-10-PCS; CPT 43235; principal; 2024-01-02 08:00)
DX: K22.70 Barrett's esophagus without dysplasia (principal); K20.90 Esophagitis, unspecified without bleeding; K44.9 Diaphragmatic hernia without obstruction or gangrene; I48.0 Paroxysmal atrial fibrillation; R73.03 Prediabetes; Z79.01 Long term (current) use of anticoagulants; Z88.0 Allergy status to penicillin
CPT/HCPCS: 43239; 82947; 88305; 88313; J1596; J2704

== ENCOUNTER → 2024-01-02 06:43 | Outpatient (BNV) | payer MEDICARE, SELFPAY | PROVIDERS: PCP Internal Medicine; Visit Provider Internal Medicine Gastroenterology | DX: K22.70 Barrett's esophagus without dysplasia (principal); K21.9 Gastro-esophageal reflux disease without esophagitis | CPT/HCPCS: 43239 ==

== ENCOUNTER 2024-01-06 06:57 | Outpatient (REF) | payer MEDICARE, SELFPAY ==
[2024-01-06 07:08] LABS: MANUAL DIFF FLAG NO
[2024-01-06 08:01] LABS: Basophils Percent Auto 0.2 % (0-2); Eosinophils Absolute Auto 0.1 X10*3/uL (0.0-0.4); Eosinophils Percent Auto 1.6 % (0-4); Hematocrit 44.1 % (42.0-52.0); Hemoglobin 14.6 g/dl (14.0-18.0); Imm Gran Abs Auto 0.02 X10*3/uL (0.00-0.03); Imm Gran Pct Auto 0.5 % (0.0-0.4); Lymphocytes Absolute Auto 1.3 X10*3/uL (1.2-4.9); Lymphocytes Percent Auto 31.5 % (20-40); Mean Corpuscular HGB Conc 33.1 g/dl (31.0-36.0); Mean Corpuscular Hemoglobin 31.3 pg (27.0-33.0); Mean Corpuscular Volume 94.6 fL (80.0-98.0); Mean Platelet Volume 11.3 fL (9.4-12.4); Monocytes Absolute Auto 0.4 X10*3/uL (0.1-1.2); Monocytes Percent Auto 10.3 % (2-11); Neutrophils Absolute Auto 2.4 x10*3/uL (2.0-8.3); Neutrophils Percent Auto 55.9 % (45-73); Platelet Count 166 X10*3/uL (160-400); Red Blood Count 4.66 X10*6/uL (4.60-5.80); Red Cell Distribution Width 13.6 % (11.0-16.0); White Blood Count 4.3 X10*3/uL (4.8-10.8)
[2024-01-06 08:26] LABS: Estimated Average Glucose 123 mg/dL; Hemoglobin A1c % 5.9 % (<6.0)
[2024-01-06 08:35] LABS: Creatinine Urine 94.54 mg/dL; Microalbum/Creatinine Ratio Ur 35.9 ug/mg cr (<30)
[2024-01-06 08:44] LABS: Alanine Aminotransferase 29 U/L (0-40); Albumin Level 4.1 g/dL (3.5-5.0); Alkaline Phosphatase 72 U/L (39-117); Anion Gap 12 (12-20); Aspartate Amino Transferase 25 U/L (5-37); Bilirubin Total 0.7 mg/dL (0.0-1.0); Blood Urea Nitrogen 17 mg/dL (9-16); Calcium 9.5 mg/dL (8.4-10.2); Carbon Dioxide 26 mmol/L (22-29); Chloride 105 mmol/L (96-108); Cholesterol 136 mg/dL (<200); Estimated Glomerular Filt Rate > 60; Glucose Fasting 107 mg/dL (60-99); HDL Cholesterol 41 mg/dL (>40); LDL Cholesterol Calculated 67 mg/dL (<100); Potassium 4.2 mmol/L (3.3-5.1); Sodium 139 mmol/L (135-145); Total Protein 6.8 g/dL (6.5-8.0); Triglycerides 140 mg/dL (<150)
== END 2024-01-06 06:58 | disposition home or self-care (01) ==
LOC: HO.LAB 06:57
PROVIDERS: PCP Internal Medicine; Visit Provider Internal Medicine
DX: E11.9 Type 2 diabetes mellitus without complications (principal); E78.00 Pure hypercholesterolemia, unspecified; I10 Essential (primary) hypertension
CPT/HCPCS: 36415; 80053; 80061; 82043; 82570; 83036; 85025

== ENCOUNTER 2024-05-10 09:23 | Outpatient (AMB) | payer MEDICARE, SELFPAY ==
--- NOTE | 2024-05-10 09:24 | MHC.OFFVIS ---
Vital Signs 05/10/24 09:26 Height 5 ft 11 in Weight 224 lb BMI 31.2 BP 129/62 Blood Pressure Location Lt brachial Position Sitting Pulse 66 Intake Visit Reasons: 4 month follow up Intake Note: Patient follow up for hemorrhoids and EGD results Patient cc: anal bleeding on and off, denies any other GI issues [employer] Required: No Accompanied by: Self / Same As Patient Allergies penicillin V Allergy (Intermediate, Verified 05/10/24 09:24) hives lisinopril Adverse Reaction (Mild, Verified 05/10/24 09:24) scratchy throat Medication List - Last Reconciled 05/10/24 by Jenny Sommer MD alirocumab (Praluent Pen) 75 mg subcut Q14D amlodipine 2.5 mg PO BEDTIME apixaban (Eliquis) 5 mg PO BID cinnamon bark (Cinnamon) 1,000 mg PO BEDTIME hydrocortisone 2.5% 1 appl IA BID-QID PRN 30 days loratadine (Claritin) 10 mg PO DAILY magnesium 400 mg PO BEDTIME metformin ER 500 mg PO QAM metoprolol succinate ER 50 mg PO BID omeprazole 20 mg PO DAILY 90 days HPI HPI 4 month follow up: Details: GI clinic visit for this 73 YM with obesity, CAD, HLD, severe sleep apnea, PAF on chronic anticoagulation for follow-up of Barretts esophagus and colon polyps TODAY'S VISIT: Patient cc: rectal bleeding on and off, denies any other GI issues EGD results reviewed. Rare heartburn and denies dysphagia Rectal bleeding when he strains and has a hard BM. Wt loss - by being more active Takes metamucil intermittently and regularly PAST VISIT: Planning to go to [place] on 07/10 and unsure when he will return to [place] (? Dec, 2023) Intermittent rectal bleeding for the past few months. Blood is separate from the stool Some times can pass some light. Denies being dizzy No rectal pain Patient denies symptoms of heartburn, dysphagia, nausea, vomiting, change in appetite or weight. Denies recent change in bowel habits, constipation, diarrhea, black stools or rectal bleeding. Patient denies major cardiac or pulmonary problems, Has sleep apnea and on C Pap Denies problems with anesthesia in the past. On chronic anticoagulation. Patient denies known family history of colon polyps, colon cancer or other GI malignancy LABS IN [place] : Reviewed IMAGING STUDIES: Abd CT scan in 2016 showed pancreatic calcifications ENDOSCOPIC STUDIES: 04/2022 EGD AND COLONOSCOPY SHOWED: ESOPHAGUS: GE junction at 40 cms, small hiatal hernia 40 to 42 cms.? Three 1-2 cms tongues of suspected Montes's - biopsied.? A 2 cms inlet patch at 30 cms - biopsied.? No esophagitis. STOMACH: Normal gastric mucosa. Grade 3 flap valve on retroflexed examination of the cardia. Colonoscopy Findings: One small polyp removed Moderate diverticulosis seen in the left colon Moderate hemorrhoids on retroflexed exam - likely source of rectal bleeding. Plan: Repeat EGD in 1 one year if esophageal biopsies confirm presence of Barretts.? Colonoscopy interval based on path results - in 5 years if polyps are adenomatous and due to a hx of colon polyps (adult colonoscope for future colonoscopies). BIOPSIES SHOWED: A. Colon, ascending, polypectomy: Tubular adenoma; negative for high-grade dysplasia or carcinoma. B. Esophagus, distal, biopsy: - Montes esophagus with background moderate chronic active inflammation. - No dysplasia seen. - Squamous epithelium within normal limits. C. Esophagus, mid, biopsy: - Cardiofundic-type mucosa with mild chronic inactive inflammation; no intestinal metaplasia seen. - Squamous mucosa within normal limits 10/[address] ENCINAS:A 4 mm flat polyp (tubular adenoma on bx) was removed from the cecum Moderate sigmoid diverticulosis [facility] Medical History (Updated 05/10/24 @ 09:58 by Jenny Sommer MD) Pancreatitis Arthritis Renal calculi Decreased hearing of left ear Sleep apnea Paroxysmal atrial fibrillation CAD (coronary artery disease) Vitamin D deficiency Thyroid nodule Obesity HLD (hyperlipidemia) Prediabetes Surgical History History of esophagogastroduodenoscopy (EGD) Hx of lithotripsy Hx of cystoscopy H/O colonoscopy Hx of coronary artery bypass graft Hx of shoulder surgery History of tonsillectomy and adenoidectomy Hx of appendectomy Family History Father CVD (cardiovascular disease) Mother CVD (cardiovascular disease) Hypertension Social History Household Members: Spouse Are you a primary primary health care nurse to a significant other at home: No Do you presently have visiting nurse or other home services: No Alcohol intake: current Alcohol intake frequency: holidays/special occasions only Patient Tobacco Use Status: Former Tobacco user Tobacco use type: Cigarette Cigarette Packs Per Day: 1 Years Smoked: 5 Advance Directives Date on File: 06/20/13 Review of Systems Const All systems reviewed & are unremarkable except as noted in HPI and below Physical Exam Vital Signs: Last Vital Signs Pulse 66 05/10/24 09:26 BP 129/62 05/10/24 09:26 BMI result Body Mass Index 31.2 Const General: cooperative, comfortable, no acute distress, alert and awake Nutritional Appearance: obese Orientation/consciousness: patient oriented x3 Limitations: no limitations Neck Neck: Yes trachea midline, Yes supple and Yes no JVD Carotids: no bruits Chest Chest palpation & inspection: normal inspection of the chest and other (Well-healed sternotomy scar) Resp Effort & Inspection: normal respiratory effort Auscultation: clear to auscultation bilaterally Cardio Jugular venous distension: no JVD Palpation: normal PMI Rate: regular rate Rhythm: regular rhythm Heart sounds: S1 normal heart sound present, S2 normal heart sound present and Other heart sounds present (S4 present) GI Auscultation: normal bowel sounds Skin General skin exam: no rashes or lesions noted Neuro General: patient oriented x3 and no focal motor deficits Extrem General: Yes no clubbing, cyanosis or edema Psych Appearance: grossly normal Assessment & Plan Assessment & Plan (1) Rectal bleeding: Code(s): K62.5 - Hemorrhage of anus and rectum Category: Medical (2) GERD (gastroesophageal reflux disease): Code(s): K21.9 - Gastro-esophageal reflux disease without esophagitis Category: Medical (3) Hemorrhoids: Code(s): K64.9 - Unspecified hemorrhoids Category: Medical (4) History of colon polyps: Code(s): Z86.010 - Personal history of colonic polyps Category: Medical (5) NAFL (nonalcoholic fatty liver): Code(s): K76.0 - Fatty (change of) liver, not elsewhere classified Category: Medical Plan 73 YM with obesity, CAD, HLD, severe sleep apnea (on CPAP), PAF on chronic anticoagulation with rectal bleeding and to schedule his fu screening colonoscopy 10/[address] ENCINAS: A 4 mm flat polyp (tubular adenoma on bx) was removed from the cecum Moderate sigmoid diverticulosis 04/2022 EGD and colon were performed in findings as noted above. 12/29/23 Pt notes rare heartburn and denies dysphagia 01/02/24 EGD was performed and results as noted 05/10/24 Rare heartburn and denies dysphagia Rectal bleeding when he strains and has a hard BM. Wt loss - by being more active Takes metamucil intermittently and regularly Pt advised to take Miralax prn for constipation Abd US with elastography for FU of fatty liver and thrombocytopenia with normal LFTs FU in 6 months Orders: Orders US abdomen comp w elastography Today K76.0 - Fatty (change of) liver, not elsewhere classified Medications: New polyethylene glycol 3350 (Miralax) 17 grams PO DAILY 30 days 510 grams 3RF K59.09 - Other constipation Coding Level of Care Code Est Pt Level 3 (95246) Diagnoses Rectal bleeding K62.5 GERD (gastroesophageal reflux disease) K21.9 Hemorrhoids K64.9 History of colon polyps Z86.010 NAFL (nonalcoholic fatty liver) K76.0 Time Spent (min) 18
[2024-05-10 09:26] VITALS: BP 129/62; PULSE 66; BMI 31.2
== END 2024-05-10 10:11 | disposition home or self-care (01) ==
PROVIDERS: PCP Internal Medicine; Visit Provider Internal Medicine Gastroenterology
DX: K62.5 Hemorrhage of anus and rectum (principal); K21.9 Gastro-esophageal reflux disease without esophagitis; K64.9 Unspecified hemorrhoids; Z86.010 Personal history of colon polyps; K76.0 Fatty (change of) liver, not elsewhere classified
CPT/HCPCS: 99213

== ENCOUNTER → 2024-05-10 09:23 | Outpatient (BNVA) | payer MEDICARE, SELFPAY | PROVIDERS: PCP Internal Medicine; Visit Provider Internal Medicine Gastroenterology | DX: K62.5 Hemorrhage of anus and rectum (principal); K21.9 Gastro-esophageal reflux disease without esophagitis; K64.9 Unspecified hemorrhoids; K76.0 Fatty (change of) liver, not elsewhere classified; Z86.010 Personal history of colon polyps | CPT/HCPCS: 99212 ==

== ENCOUNTER 2024-05-23 08:36 | Outpatient (REF) | payer MEDICARE, SELFPAY ==
--- NOTE | ~2024-05-23 | US_ITS ---
EXAMINATION: US COMPLETE ABDOMEN WITH LIVER ELASTOGRAPHY CLINICAL INFORMATION: Fatty change of liver, not elsewhere classified. COMPARISON: None available. TECHNIQUE: Real-time imaging of the abdominal viscera. Noninvasive ultrasound liver fibrosis assessment is performed using Govind ElastPQ point quantification shear wave elastography (pSWE) with a C5-2 MHz transducer. Multiple elastography samples are obtained. FINDINGS: PANCREAS: Pancreas could not be seen secondary to overlying bowel gas. ABDOMINAL AORTA: The mid and distal aorta was not visualized. The proximal aorta is unremarkable. INFERIOR VENA CAVA: Visualized portions are normal. LIVER: Liver echogenicity is increased with a normal-sized liver. No focal lesion or intrahepatic biliary duct dilatation. The right lobe measures 14.5 cm in length. The left lobe measures 9.7 cm in length. Portal flow is towards the liver (hepatopetal). Shear wave liver elastography median stiffness is 1.56 m/s (reference: normal median stiffness is 1.3 m/s or less). IQR/median stiffness to assess sampling precision is 0.11 (reference: good quality data set is IQR/median stiffness of 0.15 or less). GALLBLADDER: An impacted gallstone is seen in the gallbladder neck. No pericholecystic inflammatory change seen. Hill's sign negative. COMMON BILE DUCT: Normal in caliber measuring 0.4 cm in diameter. RIGHT KIDNEY: There is a 4 mm echogenic focus in the mid kidney with shadowing and twinkle artifact consistent with a nonobstructing stone. No hydronephrosis. A benign 1.9 cm Bosniak class II renal cyst with mural calcification is noted which requires no additional imaging or follow up. No solid renal masses are seen. The kidney measures 11.7 cm in maximum dimension. LEFT KIDNEY: A benign exophytic upper pole cortical 1.1 cm Bosniak class I renal cyst is noted which requires no additional imaging or follow up. No solid renal masses are seen. . No hydronephrosis. No renal calculi. The kidney measures 12.5 cm in maximum dimension. SPLEEN: Normal. The spleen measures 10.9 cm in maximum dimension. FREE FLUID: None. US/US abdomen comp w elastography IMPRESSION: 1. Echogenic liver consistent with hepatic steatosis. 2. Liver elastography: In the absence of other known clinical signs, measurements rule out compensated advanced chronic liver disease. If there are known clinical signs, further testing may be needed for confirmation. 3. Incidental note made of nonobstructing right renal calculus and bilateral benign renal cysts which need no follow-up. REFERENCE: Society of Radiologists in Ultrasound Liver Stiffness Thresholds (2020): LIVER STIFFNESS THRESHOLDS: *Liver Stiffness equal or less than 1.3 m/s: High probability of being normal. *Liver Stiffness less than 1.7 m/s: In the absence of other known clinical signs, rules out compensated advanced chronic liver disease. *Liver Stiffness 1.7-2.1 m/s: Suggestive of compensated advanced chronic liver disease but need further test for confirmation. *Liver Stiffness over 2.1 m/s: Rules in compensated advanced chronic liver disease. *Liver Stiffness over 2.4 m/s: Suggestive of clinically significant portal hypertension. QUALITY OF DATA SET: *IQR/Median value equal or less than 0.15 implies a quality data set. *IQR/Median value over 0.15 implies a poor quality data set. SIGNIFICANT CHANGE FROM PRIOR EXAM: Significant change if liver stiffness measurement is 10% or greater from prior exam. OTHER CONSIDERATIONS: The stage of liver fibrosis may be overestimated in the setting of acute hepatitis, liver inflammation, elevated liver function tests, hepatic vascular congestion, obstructive cholestasis, non-fasting state, and infiltrative diseases such as amyloidosis and lymphoma. In some patients with NAFLD, the liver stiffness thresholds for compensated advanced chronic liver disease may be lower. In causes other than viral hepatitis and NAFLD, liver stiffness thresholds are not well established. Electronically signed by: Sergio Elena MD 07/05/2024 02:22 PM [facility]
== END 2024-05-23 08:37 | disposition home or self-care (01) ==
LOC: HO.US 08:36
PROVIDERS: PCP Internal Medicine; Visit Provider Internal Medicine Gastroenterology
DX: K76.0 Fatty (change of) liver, not elsewhere classified (principal)
CPT/HCPCS: 76700; 76981

== ENCOUNTER 2024-07-04 07:28 | Outpatient (REF) | payer MEDICARE, SELFPAY ==
[2024-07-04 10:42] LABS: MANUAL DIFF FLAG NO
[2024-07-04 10:49] LABS: Basophils Percent Auto 0.5 % (0-2); Eosinophils Absolute Auto 0.1 X10*3/uL (0.0-0.4); Eosinophils Percent Auto 1.2 % (0-4); Hematocrit 42.5 % (42.0-52.0); Hemoglobin 14.1 g/dl (14.0-18.0); Imm Gran Abs Auto 0.02 X10*3/uL (0.00-0.03); Imm Gran Pct Auto 0.5 % (0.0-0.4); Mean Corpuscular HGB Conc 33.2 g/dl (31.0-36.0); Mean Corpuscular Hemoglobin 31.4 pg (27.0-33.0); Mean Corpuscular Volume 94.7 fL (80.0-98.0); Mean Platelet Volume 11.5 fL (9.4-12.4); Monocytes Absolute Auto 0.4 X10*3/uL (0.1-1.2); Monocytes Percent Auto 9.5 % (2-11); Neutrophils Absolute Auto 2.7 x10*3/uL (2.0-8.3); Neutrophils Percent Auto 64.3 % (45-73); Platelet Count 157 X10*3/uL (160-400); Red Blood Count 4.49 X10*6/uL (4.60-5.80); Red Cell Distribution Width 13.6 % (11.0-16.0); White Blood Count 4.1 X10*3/uL (4.8-10.8)
[2024-07-04 11:30] LABS: Estimated Average Glucose 126 mg/dL; Hemoglobin A1C 193.1878 umol/L; Total Hemoglobin (HGBA1C) 4565.1019 umol/L
[2024-07-04 11:42] LABS: Alanine Aminotransferase 33 U/L (0-40); Alkaline Phosphatase 78 U/L (39-117); Anion Gap 10 (12-20); Aspartate Amino Transferase 31 U/L (5-37); Bilirubin Total 0.8 mg/dL (0.0-1.0); Blood Urea Nitrogen 21 mg/dL (9-16); Calcium 9.5 mg/dL (8.4-10.2); Carbon Dioxide 26 mmol/L (22-29); Chloride 107 mmol/L (96-108); Estimated Glomerular Filt Rate > 60; Glucose Random 144 mg/dL (60-115); Sodium 139 mmol/L (135-145); Total Protein 6.7 g/dL (6.5-8.0)
[2024-07-04 11:43] LABS: Creatinine Urine 194.94 mg/dL; Microalbum/Creatinine Ratio Ur 79.5 ug/mg cr (<30)
== END 2024-07-04 07:29 | disposition home or self-care (01) ==
LOC: HO.HMGCLDS 07:28
PROVIDERS: PCP Internal Medicine; Visit Provider Internal Medicine
DX: I10 Essential (primary) hypertension (principal); E11.9 Type 2 diabetes mellitus without complications; N18.9 Chronic kidney disease, unspecified; K21.9 Gastro-esophageal reflux disease without esophagitis
CPT/HCPCS: 36415; 80053; 82043; 82570; 83036; 85025

== ENCOUNTER 2024-07-06 09:50 | Outpatient (AMB) | payer MEDICARE, SELFPAY ==
[2024-07-06 10:24] VITALS: BP 120/82; PULSE 66; BMI 31.7
--- NOTE | 2024-07-06 10:24 | A.OFFVIS_ITS ---
Vital Signs 07/06/24 10:24 Height 5 ft 11 in Weight 227 lb 1.218 oz BMI 31.7 BP 120/82 Blood Pressure Location Lt brachial Position Sitting Pulse 66 Intake Visit Reasons: 1 yr f/up Intake Note: 1 year follow-up with ekg feeling good Parliamentary Counsel Required: No Allergies penicillin V Allergy (Intermediate, Verified 05/10/24 09:24) hives lisinopril Adverse Reaction (Mild, Verified 05/10/24 09:24) scratchy throat Medication List - Last Reconciled 07/06/24 by Shahram Suarez MD amlodipine 2.5 mg PO BEDTIME apixaban (Eliquis) 5 mg PO BID cinnamon bark (Cinnamon) 1,000 mg PO BEDTIME hydrocortisone 2.5% 1 appl [place] BID-QID PRN 30 days metformin ER 500 mg PO QAM metoprolol succinate ER 50 mg PO BID omeprazole 20 mg PO DAILY 90 days polyethylene glycol 3350 (Miralax) 17 grams PO DAILY 30 days HPI Comments Details: Abner comes for a yearly follow-up. A myocardial perfusion imaging last year for surveillance which looked normal with normal perfusion. He is currently off PCSK9 inhibitor therapy due to cost issues. Currently not on any lipid modification. He has not had any exertional symptoms. Walks frequently without any symptoms of chest pain or shortness of breath. Denies heart failure symptoms. Denies any prolonged palpitations, irregular heartbeat, lightheadedness, syncope. No bleeding issues or neurologic events. [facility] Medical History (Updated 05/10/24 @ 09:58 by Jenny Sommer MD) Pancreatitis Arthritis Renal calculi Decreased hearing of left ear Sleep apnea Paroxysmal atrial fibrillation CAD (coronary artery disease) Vitamin D deficiency Thyroid nodule Obesity HLD (hyperlipidemia) Prediabetes Surgical History History of esophagogastroduodenoscopy (EGD) Hx of lithotripsy Hx of cystoscopy H/O colonoscopy Hx of coronary artery bypass graft Hx of shoulder surgery History of tonsillectomy and adenoidectomy Hx of appendectomy Family History Father CVD (cardiovascular disease) Mother CVD (cardiovascular disease) Hypertension Social History Household Members: Spouse Are you a primary health care marketing manager to a significant other at home: No Do you presently have visiting nurse or other home services: No Alcohol intake: current Alcohol intake frequency: holidays/special occasions only Patient Tobacco Use Status: Former Tobacco user Tobacco use type: Cigarette Cigarette Packs Per Day: 1 Years Smoked: 5 Advance Directives Date on File: 06/20/13 Review of Systems Const Denies weakness ENT Denies dizziness Card Denies chest pain, Denies chest pain with activity, Denies syncope, Denies rapid heart rate, Denies pedal edema, Denies edema, Denies leg edema, Denies lightheadedness, Denies palpitations, Denies dyspnea, Denies dyspnea on exertion and Denies orthopnea Resp Denies cough, Denies dyspnea and Denies dyspnea on exertion GI Denies hematochezia and Denies change in stool character Musc Denies abnormal gait, Denies muscle cramps, Denies muscle weakness, Denies numbness, Denies radiating pain into limb and Denies tingling Neuro Denies abnormal gait, Denies dizziness, Denies syncope, Denies numbness, Denies tingling and Denies weakness Endo Denies palpitations Physical Exam Vital Signs: Last Vital Signs Pulse 66 07/06/24 10:24 BP 120/82 07/06/24 10:24 BMI result Body Mass Index 31.7 Office Procedures EKG Details: EKG shows normal sinus rhythm with normal EKG [id number], Complete Assessment & Plan Assessment & Plan (1) Paroxysmal atrial fibrillation: Comment: follows [employer] yearly Code(s): I48.0 - Paroxysmal atrial fibrillation Category: Medical Plan: Paroxysmal atrial fibrillation highly symptomatic without any obvious clinical recurrence at this point time. Continue aggressive risk factor modification with aggressive blood pressure control. Continue current metoprolol therapy. No indication for antiarrhythmic drug therapy but will pursue rhythm control approach. Continue full oral anticoagulation, currently on Eliquis 5 mg b.i.d.. Semi annual renal function test should be pursued. Continue CPAP therapy. Continue participate in weight loss program. (2) CAD (coronary artery disease): Comment: follows [employer] yearly Code(s): I25.10 - Atherosclerotic heart disease of [place] coronary artery without angina pectoris Category: Medical Plan: CAD with remote coronary artery bypass grafting. Currently stable without having any symptoms of angina with current functional capacity. Myocardial perfusion imaging last year was within normal limits. Needs lipid modification with target goal LDL closer to 50 mg/dL. Unfortunately can not tolerate statin due to myalgias. PCSK9 inhibitor therapy was stopped due to cost issues. Currently on full oral anticoagulation with Eliquis and will hold aspirin therapy to reduce bleeding risk. Continue aggressive blood pressure control which is well optimized at this point time. Encouraged to continue to participate in physical activity as tolerated. Will follow up in the clinic in 1 year's time, sooner p.r.n.. Thank you for allowing me to partake in his care Coding Level of Care Code Est Pt Level 4 (18022) Complex EM visit Add On G2211 Diagnoses Paroxysmal atrial fibrillation I48.0 CAD (coronary artery disease) I25.10 CPT Codes EKG - CPT: 87079-[id number], Complete ([id number])
== END 2024-07-06 10:43 | disposition home or self-care (01) ==
PROVIDERS: PCP Internal Medicine; Visit Provider Internal Medicine Cardiovascular Disease
DX: I48.0 Paroxysmal atrial fibrillation (principal); I25.10 Atherosclerotic heart disease of native coronary artery without angina pectoris
CPT/HCPCS: 93010; 99214; G2211

== ENCOUNTER → 2024-07-06 09:50 | Outpatient (BNVA) | payer MEDICARE, SELFPAY | PROVIDERS: PCP Internal Medicine; Visit Provider Internal Medicine Cardiovascular Disease | DX: I48.0 Paroxysmal atrial fibrillation (principal); I25.10 Atherosclerotic heart disease of native coronary artery without angina pectoris | CPT/HCPCS: 93005; 99212 ==

== ENCOUNTER 2024-07-29 14:07 | Emergency (ER) | payer MEDICARE, SELFPAY ==
--- NOTE | ~2024-07-29 | CT_ITS ---
EXAMINATION: CT ABDOMEN PELVIS WITHOUT IV CONTRAST CLINICAL INFORMATION: right back pain, nausea, h/o renal colic COMPARISON: No prior CT available for comparison. TECHNIQUE: Multidetector volumetric imaging was performed from the superior aspect of the liver through the pubic symphysis in noncontrast CT. Sagittal and coronal reformatted images were obtained on the technologist's workstation. This CT examination was performed using dose optimization techniques as appropriate, variously including the following: *Automated exposure control *Adjustment of mA and/or kV according to patient size (this includes techniques or standardized protocols for targeted exams where dose is matched to indication/reason for exam; i.e. extremities or head) *Use of iterative reconstruction technique DLP: 689 mGy-cm FINDINGS: LOWER THORAX: Included lung bases are clear. HEPATOBILIARY: Limited assessment of the liver on the noncontrast CT scan, the liver however maintain homogeneous attenuation and a smooth surface. Normal size. GALLBLADDER: Gallbladder is contracted, there are gallstones. SPLEEN: Spleen is normal in size. PANCREAS: No focal mass or ductal dilatation. STOMACH AND GASTROINTESTINAL TRACT: Stomach is grossly unremarkable. There is diverticulosis without CT evidence of diverticulitis. No evidence of bowel obstruction. No CT evidence of appendicitis. ADRENALS: No adrenal nodules. KIDNEYS/URETERS: Mild right renal hydronephrosis and hydroureter due to a partially obstructing 3 mm stone in the distal right ureter at the ureterovesicular junction. Perinephric fat stranding and mild fat stranding around the right ureter could be sequela of obstruction, cannot rule out superimposed infection ureteritis. There is additional 3 nonobstructing stones in the right kidney measuring 2 mm and 3 mm. No stones on the left side. Hypodense cystic structure middle pole left kidney measure 1.5 cm the attenuation of its matrix is below 10 consistent with a cyst commonly benign. No follow-up imaging is indicated. URINARY BLADDER: Partially decompressed. PELVIC VISCERA: Unremarkable PERITONEUM: No free air or fluid. LYMPH NODES: No lymphadenopathy. VASCULAR: Heavy aortic vascular calcifications without evidence of aneurysm. Abdominal aorta normal in size, no aneurysm found. BONES, ABDOMINAL WALL AND SOFT TISSUES: There are bilateral inguinal hernias containing fat only. Age-appropriate changes of the spine and skeletal system, no destructive osteolytic or osteosclerotic bone lesion found CT/CT abdomen pelvis wo IV con IMPRESSION: 1. Mild right renal hydronephrosis and hydroureter due to a partially obstructing 3 mm stone in the distal right ureter at the ureterovesicular junction. 2. Perinephric fat stranding and mild fat stranding around the right ureter could be sequela of obstruction, cannot rule out superimposed infection ureteritis. 3. There are 3 additional nonobstructing stones in the right kidney. 4. Diverticulosis without evidence of acute diverticulitis. 5. Cholelithiasis. 6. Bilateral inguinal hernias containing fat only. Electronically signed by: Janelle Thompson MD 07/29/2024 04:09 PM [facility] OS[facility]ORNE
--- NOTE | 2024-07-29 14:19 | ED.GENADULT ---
HPI - General Adult General Chief complaint: Back Pain/Injury Stated complaint: kidney issues Time Seen by Provider: 07/29/24 16:34 History of Present Illness ED Provider: Myah MOREAU narrative: The patient is a 73-year-old male who has a history of kidney stones in the past. He has not had problems with kidney stones recently however. He thinks the last time he had kidney stone problems was about 12 years ago. Needed a procedure at that time. Today at around 8AM the patient developed right flank pain similar to previous kidney stone pain. He ultimately told his at 10 AM. The pain continued and he ultimately came to the emergency room. He feels the pain in his right flank and right lower quadrant. No fever, sweats, chills. No chest pain or shortness of breath. No nausea or vomiting. He had some similar left-sided pain a few days ago that got better on its own. Related Data Home Medications ?Medication ?Instructions ?Recorded ?Confirmed cinnamon bark 500 mg capsule 1,000 mg PO BEDTIME 08/11/21 07/06/24 (Cinnamon) metformin 500 mg tablet,extended 500 mg PO QAM 08/11/21 07/06/24 release 24 hr amlodipine 2.5 mg tablet 2.5 mg PO BEDTIME 04/27/22 07/06/24 metoprolol succinate 50 mg 50 mg PO BID 06/28/23 07/06/24 tablet,extended release 24 hr Previous Rx's ?Medication ?Instructions ?Recorded apixaban 5 mg tablet (Eliquis) 5 mg PO BID #180 tabs 09/29/21 omeprazole 20 mg capsule,delayed 20 mg PO DAILY 90 days #90 caps 05/09/22 release hydrocortisone 2.5 % topical cream 1 appl AR BID-QID PRN hemorrhoids 12/29/23 with perineal applicator 30 days #30 grams polyethylene glycol 3350 17 17 g PO DAILY 30 days #510 grams 05/10/24 gram/dose oral powder (Miralax) morphine 15 mg immediate release 15 mg PO Q6H PRN pain #10 tabs 07/29/24 tablet ondansetron 4 mg disintegrating 4 mg PO Q6H PRN nausea and 07/29/24 tablet vomiting #7 tabs Allergies Allergy/AdvReac Type Severity Reaction Status Date / Time penicillin V Allergy Intermediate hives Verified 07/29/24 14:23 lisinopril AdvReac Mild scratchy Verified 07/29/24 14:23 throat Review of Systems Review of Systems: Yes all other systems are reviewed and are negative [facility] Past Medical History Medical History (Updated 07/29/24 @ 18:28 by Yossi Glasgow MD) Pancreatitis Arthritis Renal calculi Decreased hearing of left ear Sleep apnea Paroxysmal atrial fibrillation CAD (coronary artery disease) Vitamin D deficiency Thyroid nodule Obesity HLD (hyperlipidemia) Prediabetes Surgical History History of esophagogastroduodenoscopy (EGD) Hx of lithotripsy Hx of cystoscopy H/O colonoscopy Hx of coronary artery bypass graft Hx of shoulder surgery History of tonsillectomy and adenoidectomy Hx of appendectomy Family History Family History Father CVD (cardiovascular disease) Mother CVD (cardiovascular disease) Hypertension Social History Social History Household Members: Spouse Are you a primary primary care md to a significant other at home: No Do you presently have visiting nurse or other home services: No Alcohol intake: current Alcohol intake frequency: holidays/special occasions only Patient Tobacco Use Status: Former Tobacco user Tobacco use type: Cigarette Cigarette Packs Per Day: 1 Years Smoked: 5 Advance Directives: Yes Advance Directives on File: Yes Advance Directives Date on File: 06/20/13 Physical Exam ED Vital Signs: Vital Signs - 24 hr 07/29/24 14:20 07/29/24 17:10 Temperature 97.7 F 98.4 F Pulse Rate 63 68 Respiratory Rate 18 20 Blood Pressure 180/82 H 141/69 H Pulse Oximetry 94 94 Oxygen Delivery Method Room Air Room Air BMI result Body Mass Index 31.9 Const Other: The patient is a 73-year-old male who was awake and alert, pleasant cooperative. He does not appear acutely toxic or in severe discomfort. HENMT Head: Yes normal to inspection Face and sinus: Yes normal facial exam Mouth: Normal oral and palatal mucosa present and moist mucous membranes Eyes General: appearance normal, both eyes and all related structures Neck Neck: Yes full ROM Resp Effort & Inspection: normal respiratory effort Auscultation: clear to auscultation bilaterally Cardio Rate: regular rate Rhythm: regular rhythm Heart sounds: S1 normal heart sound present and S2 normal heart sound present GI Other: Abdomen is soft and nontender Back/Spine/Pelvis Other: Right-sided CVA percussion tenderness Skin Other: Skin is pale and dry Neuro Other: The patient is awake and alert with a normal mental status. Cranial nerves are grossly intact. He moves his extremities normally and appropriately. Extrem Other: No peripheral edema Course Course Course Narrative: This is a rapid medical exam. Deferred additional HPI, ROS, PE to primary provider. 73 yo male with history of kidney stones with stenting, DM, CABG, HTN, afib on eliquis here with right lower back pain, nausea. No urinary symptoms, fevers, chills, vomiting. Will obtain labs, UA, give SL zofran Will obtain CT A/P VSS -A. Pascucci INTENSIVE CARE SPECIALIST Medications Administered Discontinued Medications Generic Name Dose Route Start Last Admin Trade Name Freq PRN Reason Stop Dose Admin Sodium Chloride 1,000 mls @ 999 mls/hr 07/29/24 17:00 07/29/24 17:05 Ns IV 07/29/24 18:00 999 mls/hr .Q1H1M JOVI Administration Acetaminophen 1,000 mg in 100 mls @ 400 mls/hr 07/29/24 16:48 07/29/24 17:29 Ofirmev IV 07/29/24 17:02 Infused ONCE ONE Infusion Morphine Sulfate 4 mg 07/29/24 16:48 07/29/24 17:06 Morphine Sulfate 4 Mg/Ml Cartridge IVPUSH 07/29/24 16:49 4 mg ONCE ONE Administration Protocol Ondansetron HCl 4 mg 07/29/24 14:22 07/29/24 14:56 Ondansetron Odt 4 Mg Tab.Rapdis TRANSLINGU 07/29/24 14:23 4 mg ONCE ONE Administration Medical Decision Making Lab Data 07/29/24 14:35 07/29/24 14:35 Labs: Lab Results 07/29/24 Range/Units 14:35 WBC 7.8 (4.8-10.8) X10*3/uL RBC 4.78 (4.60-5.80) X10*6/uL Hgb 15.0 (14.0-18.0) g/dl Hct 44.6 (42.0-52.0) % MCV 93.3 (80.0-98.0) fL MCH 31.4 (27.0-33.0) pg MCHC 33.6 (31.0-36.0) g/dl RDW 13.5 (11.0-16.0) % Plt Count 162 (160-400) X10*3/uL MPV 11.1 (9.4-12.4) fL Immature Gran % (Auto) 0.4 (0.0-0.4) % Neut % (Auto) 74.1 H (45-73) % Lymph % (Auto) 17.0 L (20-40) % [place] % (Auto) 7.4 (2-11) % Eos % (Auto) 1.0 (0-4) % Baso % (Auto) 0.1 (0-2) % Lymph # (Auto) 1.3 (1.2-4.9) X10*3/uL [place] # (Auto) 0.6 (0.1-1.2) X10*3/uL Eos # (Auto) 0.1 (0.0-0.4) X10*3/uL Baso # (Auto) 0.0 (0.0-0.2) X10*3/uL Abs Immat Gran (auto) 0.03 (0.00-0.03) X10*3/uL Absolute Neuts (auto) 5.8 (2.0-8.3) x10*3/uL Absolute Nucleated RBC 0.000 (0.0-0.012) X10*3/uL Nucleated RBC % (auto) 0.0 (0.0-0.2) /100WBC Sodium 142 (135-145) mmol/L Potassium 4.5 (3.3-5.1) mmol/L Chloride 104 (96-108) mmol/L Carbon Dioxide 29 (22-29) mmol/L Anion Gap 14 (12-20) BUN 19 H (9-16) mg/dL Creatinine 0.96 (0.5-1.4) mg/dL Estim Creat Clear Calc 85.2 Estimated GFR > 60 Random Glucose 126 H (60-115) mg/dL Calcium 9.7 (8.4-10.2) mg/dL Total Bilirubin 0.4 (0.0-1.0) mg/dL Direct Bilirubin 0.1 (0.0-0.5) mg/dL AST 29 (5-37) U/L ALT 33 (0-40) U/L Alkaline Phosphatase 90 (39-117) U/L Total Protein 7.2 (6.5-8.0) g/dL Albumin 4.2 (3.5-5.0) g/dL Urine Color Yellow Urine Appearance Clear Urine pH 7.5 (5.0-9.0) Ur Specific [place] 1.020 (1.005-1.025) Urine Protein 30 (1+) H (Neg-Trace) mg/dL Urine Glucose (UA) Negative (Negative) mg/dL Urine Ketones Negative (Negative) mg/dL Urine Blood Large (3+) H (Negative) Urine Nitrite Negative (Negative) Ur Leukocyte Esterase Negative (Negative) Urine RBC >20 H (0-2) /HPF Urine WBC 0-5 (0-5) /HPF Ur Squamous Epith Cells 0-2 (0-2) /HPF Urine Bacteria None Seen (None Seen) Hyaline Casts 0-2 (0-2) /LPF Discharge Plan Discharge Clinical Impression: Calculus of distal right ureter, Kidney stones Patient Disposition: Home, Self-Care Instructions: Ureteral Stones (ED) Additional Instructions: Your CT scan showed a 3 mm stone in your right ureter near your bladder. Stones of this size usually pass on their own into the bladder without a procedure. It is possible you have already passed the stone. Please plan on drinking a lot of fluids. If the pain comes back that means you have not passed the stone. You may use 2 extra-strength acetaminophen (Tylenol) up to 3 times a day as needed for pain. I have also sent a prescription for morphine tablets that you may use. In addition there is a prescription for ondansetron that you can use if you have nausea associated with the pain. Please contact the urology office tomorrow morning to make a follow up appointment to discuss this episode further. Return to the emergency room if significantly worse. Prescriptions: New morphine 15 mg tablet 15 mg PO Q6H PRN (Reason: pain) Qty: 10 0RF Rx Instructions: Partial Fill upon patient request. ondansetron 4 mg tablet,disintegrating 4 mg PO Q6H PRN (Reason: nausea and vomiting) Qty: 7 0RF No Action omeprazole 20 mg capsule,delayed release(DR/EC) 20 mg PO DAILY 90 Days Qty: 90 1RF amlodipine 2.5 mg tablet 2.5 mg PO BEDTIME metformin 500 mg tablet extended release 24 hr 500 mg PO QAM cinnamon bark [Cinnamon] 500 mg capsule 1,000 mg PO BEDTIME Eliquis 5 mg tablet 5 mg PO BID Qty: 180 3RF hydrocortisone 2.5 % cream with perineal applicator 1 appl AR BID-QID PRN (Reason: hemorrhoids) 30 Days Qty: 30 1RF polyethylene glycol 3350 [Miralax] 17 gram/dose powder 17 g PO DAILY 30 Days Qty: 510 3RF metoprolol succinate 50 mg tablet extended release 24 hr 50 mg PO BID Referrals: [facility] [place] [facility] [Provider Group] (right ureteral stone) Print Language: Albanian
[2024-07-29 14:20] VITALS: BP 180/82; PULSE 63; RESP 18; TEMP 36.5; O2SAT 94; BMI 31.9
[2024-07-29 14:42] LABS: MANUAL DIFF FLAG NO
[2024-07-29 14:43] LABS: Basophils Percent Auto 0.1 % (0-2); Eosinophils Absolute Auto 0.1 X10*3/uL (0.0-0.4); Hematocrit 44.6 % (42.0-52.0); Imm Gran Abs Auto 0.03 X10*3/uL (0.00-0.03); Imm Gran Pct Auto 0.4 % (0.0-0.4); Lymphocytes Absolute Auto 1.3 X10*3/uL (1.2-4.9); Mean Corpuscular HGB Conc 33.6 g/dl (31.0-36.0); Mean Corpuscular Hemoglobin 31.4 pg (27.0-33.0); Mean Corpuscular Volume 93.3 fL (80.0-98.0); Mean Platelet Volume 11.1 fL (9.4-12.4); Monocytes Absolute Auto 0.6 X10*3/uL (0.1-1.2); Monocytes Percent Auto 7.4 % (2-11); Neutrophils Absolute Auto 5.8 x10*3/uL (2.0-8.3); Neutrophils Percent Auto 74.1 % (45-73); Platelet Count 162 X10*3/uL (160-400); Red Blood Count 4.78 X10*6/uL (4.60-5.80); Red Cell Distribution Width 13.5 % (11.0-16.0); White Blood Count 7.8 X10*3/uL (4.8-10.8)
[2024-07-29 14:44] LABS: Appearance Urine Clear; Color Urine Yellow; Glucose Urine UA Negative (Negative); Leukocyte Esterase Urine Negative (Negative); Nitrite Urine Negative (Negative); PH 7.5 (5.0-9.0); UMIC TRIGGER UACC YES; Urine Blood Large (3+) (Negative); Urine Ketones Negative (Negative); Urine Protein 30 (1+) mg/dL (Neg-Trace)
[2024-07-29 14:49] LABS: Bacteria Urine None Seen (None Seen); Hyaline Casts Urine 0-2 /LPF (0-2); RBC Urine >20 /HPF (0-2); Squamous Epithelial Cell Urine 0-2 /HPF (0-2); WBC Urine 0-5 /HPF (0-5)
[2024-07-29] MEDS: Ondansetron ODT 4 MG TAB.RAPDIS TRANSLINGU (14:56)
[2024-07-29 15:10] LABS: Alanine Aminotransferase 33 U/L (0-40); Albumin Level 4.2 g/dL (3.5-5.0); Alkaline Phosphatase 90 U/L (39-117); Anion Gap 14 (12-20); Aspartate Amino Transferase 29 U/L (5-37); Bilirubin Direct 0.1 mg/dL (0.0-0.5); Bilirubin Total 0.4 mg/dL (0.0-1.0); Blood Urea Nitrogen 19 mg/dL (9-16); Calcium 9.7 mg/dL (8.4-10.2); Carbon Dioxide 29 mmol/L (22-29); Chloride 104 mmol/L (96-108); Creatinine Clr Calc Pharmacy 85.2; Estimated Glomerular Filt Rate > 60; Glucose Random 126 mg/dL (60-115); Potassium 4.5 mmol/L (3.3-5.1); Sodium 142 mmol/L (135-145); Total Protein 7.2 g/dL (6.5-8.0)
[2024-07-29] MEDS: 0.9 % Sodium Chloride 1,000 ML 999 ML IV (17:05)
[2024-07-29] MEDS: Acetaminophen 1,000 MG/100 ML PIGGYBACK 400 MG IV (17:05)
[2024-07-29] MEDS: Morphine Sulfate 4 MG/ML CARTRIDGE IVPUSH (17:06)
[2024-07-29 17:10] VITALS: BP 141/69; PULSE 68; RESP 20; TEMP 36.9; O2SAT 94
[2024-07-29 18:56] VITALS: BP 148/74; PULSE 62; RESP 16; TEMP 36.6; O2SAT 94
--- OUTSIDE RECORDS SUMMARY | 2024-08-01 12:09 | XMS_ITS | Patient Health Record ---
Author Organization [facility] Address [address] [place] [address] Care Team Providers Care Process Worker Name Role Phone Julio César Crum MD Primary Care Provider Jose Reynolds Unavailable [phone] Allergies Allergen (clinical drug ingredient) Drug/Non Drug Allergy documented on EMR Reaction Allergy Type Onset Date Status Penicillin hives Drug Allergy Active Reason For Referral No Information Medications Medication SIG (Take, Route, Frequency, Duration) Notes Start Date End Date Status Extra Depth Diabetic Shoes with 3 Pair Custom heat-molded multi-density innersoles for 1 year Dx: 01/29/2021 Active Metoprolol Tartrate 50 MG 1 tablet with food Orally Twice a day for 30 day(s) Active metFORMIN HCl 500 MG 1 tablet with a lisseth l Orally Once a day Active Norvasc 2.5 MG 1 tablet Orally Once a day for 30 day(s) Active Nitro-Bid 2 % as directed Transder mal apply bid to toes for 30 days Active Eliquis 5 MG as directed Orally Active Immunizations Vaccine Route Administration Date Status Comme nts COVID-19 Pfizer BioNTech Vaccine Unknown 11/05/2020 Administered 1st 10/14/2020 Influenza Unknown 04/22/2020 Administered Social History Tobacco Use: Social History Observation Description Date Details (start date - stop date) Former Smoker NA - NA Tobacco Use/Smoking Question Answer Notes Are you a: former smoker Additional Findings: Tobacco Non-User Current no n-smoker Alcohol Screen Question Answer Notes Did you have a drink containing alcohol in the p ast year? Yes Points 0 Interpretation Negative Tobacco use other than smoking: Question Answer Notes Are you an other tobacco user? No Problems Problem Type SNOMED Code ICD Code Onset Dates Problem Status W/U Status Risk Notes Problem Polyneuropathy due to type 2 diabetes mellitus (852032029) Type 2 diabetes mellitus with diabetic polyneuropathy (E11.42) Active confirmed Problem Polyneuropathy due to diabetes mellitus type I (948616683) Type 1 diabetes mellitus with diabetic polyneuropathy (E10.42) Active confirmed Problem 155987354 Raynaud's diseas e without gangrene (I73.00) Active confirmed Plan Of Treatment Pending Test Test Name Order Date [id number] SKIN LESIONS, OVER 10/30/19 [id number] SKIN LESIONS, OVER 01/30/20 Insurance Providers Payer Name Payer Address Payer Phone Subscriber Number Group Number Insured Name Patient Relationship to Insured Coverage Start Date Coverage End Date [employer] [place] [employer]age [facility] [address] [place] [address] [id number] Abner Llanos Self - patient is the insured Medical (General) History Medical History History ICD Code Back,Hip,and Knee pain Heart disease High blood pressure diabetes Surgical History Surgery Date(Month/Year) rotator cuff tear repair double bypass surgery appendectomy
--- OUTSIDE RECORDS SUMMARY | 2024-08-01 12:09 | XMS_ITS | Patient Health Record ---
Author Organization [facility] Address [address] [place] [id number] Care Team Providers Care Filter Bed Placer Name Role Phone Eliazar Maza M.D. Primary Care Provider Chante Levi Ji Unavailable [phone] oyula, ignatiuis Unavailable Unavailable ALLERGIES Allergen (clinical drug ingredient) Drug/Non Drug Allergy documented on EMR Reaction Allergy Type Onset Date Status Penicillin Unknown Drug Allergy Active REASON FOR REFERRAL No Information MEDICATIONS Medication SIG (Take, Route, Fr equency, Duration) Notes Start Date End Date Status Glucophage 1000mg Ac tive Ultram 50mg Active MoviPrep 100 GM as directed Orally A S DIRECTED for 1 dose 08/23/2013 Active Atenolol 50mg Active Aspir-81 81mg Active [place] 3 Active Tagamet HB Active SOCIAL HISTORY Sex Assigned At : Social History Observation Description Sex Assigned At Unknown PROBLEMS Problem Type ICD Code Onset Dates Problem Status W/U Status Risk SNOMED Code Notes Problem Blood in stool (578.1) Active confirmed Blood in stool (768126316) Problem Colon cancer screening (V76.51) Active confirmed Colon cancer screening (857303307) Problem Pancreatitis (577.0) Active confirmed Pancreatitis (95370561) Problem Abnormal CT scan, pancreas or bile duct (793.3) Active confirmed PLAN OF TREATMENT Pending Test Test Name Order Date BUN 07/02/2013 BUN 10/29/2013 CREATININE 07/02/2013 CREATININE 10/29/2013 LIVER PROFILE 07/02/2013 AMYLASE 07/02/2013 LIPASE 07/02/2013 Future Test Test Name Order Date COLONOSCOPY 08/23/2013 Insurance Providers Payer Name Payer Address Payer Phone Subscriber Number Group Number Insured Name Patient Relationship to Insured Coverage Start Date Coverage End Date [facility] [address] [address] [place] [phone] [id number] DANIE MILLER Self - patient is the insured MEDICAL (GENERAL) HISTORY Medical History History ICD Code Denies [place],CVA,DM, Lung disease,renal dis ease Acute pancreatitis of unclea r etiology 05/2013--he was hospitalized and a workup revealed a negative gallbladder ultrasound and a triglyceride level of 264--his CAT scan was consistent with acute pancreatitis, but did not show any sign of any discrete mass. He has no history of significant alcohol use. Aside from ibuprofen and atenolol, he was not on any other medications at home prior to the episode of pancreatitis. Kidney stones seen on CT scan Neg flex sig in 1994 Surgical History Surgery Date(Month/Year) appendectomy tonsillectomy and adenoidectomy rotator cuff tear repair
== END 2024-07-29 18:57 | disposition home or self-care (01) ==
PROVIDERS: Nurse Practitioner Family; Emergency Provider Emergency Medicine; PCP Internal Medicine
DX: N20.0 Calculus of kidney (principal); R10.2 Pelvic and perineal pain; R10.31 Right lower quadrant pain; Z79.899 Other long term (current) drug therapy
CPT/HCPCS: 36415; 74176; 80048; 80076; 81001; 85025; 96361; 96374; 96375; 99284; J0131; J2270

== ENCOUNTER → 2024-08-28 17:51 | Outpatient (BNV) | payer MEDICARE, SELFPAY | PROVIDERS: Emergency Provider Emergency Medicine; PCP Internal Medicine; Visit Provider Radiology Diagnostic Radiology | DX: M25.561 Pain in right knee (principal); M54.9 Dorsalgia, unspecified; S09.90XA Unspecified injury of head, initial encounter; W19.XXXA Unspecified fall, initial encounter | CPT/HCPCS: 70450; 70486; 72100; 72125; 73564 ==

== ENCOUNTER → 2024-09-26 14:33 | Outpatient (BNVA) | payer MEDICARE, SELFPAY | PROVIDERS: PCP Internal Medicine; Visit Provider Nurse Practitioner Family | DX: N20.0 Calculus of kidney (principal); R39.9 Unspecified symptoms and signs involving the genitourinary system | CPT/HCPCS: 81003; 99202 ==

== ENCOUNTER 2024-12-20 09:51 | Outpatient (REF) | payer MEDICARE, SELFPAY ==
--- NOTE | ~2024-12-20 | US_ITS ---
EXAMINATION: US RETROPERITONEUM HISTORY: N20.0 - Calculus of kidney TECHNIQUE: Real-time grayscale ultrasound imaging of the kidneys was performed and images were reviewed. COMPARISON: Correlation is made with an abdominal ultrasound dated 05/23/2024. FINDINGS: Right kidney: The right kidney measures 12.0 x 6.3 x 5.6 cm. Renal parenchymal echotexture and thickness are normal. There is a 1.6 x 1.5 x 2.0 cm cyst in the interpolar region demonstrating an associated calcifications. There is a 4 mm nonobstructing calculus in the interpolar region. There is no hydronephrosis. Left Kidney: The left kidney measures 11.8 x 6.3 x 4.4 cm. Renal parenchymal echotexture and thickness are normal. There are cysts in the interpolar region measuring 1.2 x 1.3 x 1.1 cm and 1.2 x 0.8 x 1.1 cm. There is no hydronephrosis or renal calculi. The urinary bladder is unremarkable. Bilateral ureteral jets are identified. Before voiding, the urinary bladder measured 10.6 x 6.2 x 6.9 cm, for an estimated volume of 238 mL. After voiding, the urinary bladder measured 5.1 x 2.3 x 2.7 cm, for an estimated volume of 17 mL. The prostate measures 2.9 x 2.2 x 2.5 cm. US/US retroperitoneal comp IMPRESSION: 1. Bilateral renal cysts as described. 2. 4 mm nonobstructing right renal calculus. 3. Post void bladder residual of 17 mL. Electronically signed by: Levi Ferrer MD 12/20/2024 11:54 AM EDT
--- OUTSIDE RECORDS SUMMARY | 2024-12-20 10:59 | XMS_ITS | Clinical Summary ---
Author Organization [facility] Address [address] [place] [address] Care Team Providers Care Incinerator Plant Supervisor Name Role Phone Nancy Gaona DO Primary Care Provider Active Problems Problem Noted Date Diagnosed Date Vitamin D deficiency 02/18/2021 Social History Tobacco Use Types Packs/Day Years Used Date Smoking Tobacco: Never Assessed Sex and Gender Information Value Date Recorded Sex Assigned at Not on file Legal Sex Male 6:56 PM EST Gender Identity Not on file Sexual Orientation Not on file Plan of Treatment Health Maintenance Due Date Last Done Comments Hepatitis C Virus Screening 1950 DTaP/Tdap/Td Vaccines (1 - Tdap) 12/09/1970 Colonoscopy 12/09/1996 Pneumococcal Vaccines 50+ (1 of 1 - PCV) 12/09/2001 Zoster (Shingles) Vaccine (1 of 2) 12/09/2001 Influenza Vaccine 03/22/2024 COVID-19 Vaccine ( - 2023-2 5 season) 2024 RSV Vaccine 60 years and old er and Patients (1 - 1-dose 75+ series) 12/09/2026 Hepatitis B Vaccines Aged Out No long er eligible based on patient's age to complete this topic Insurance [facility] MEDICARE Care Teams Incinerator Plant Supervisor Relationship Specialty Start Date End Date Nancy Gaona DO PCP - General Endocrinology 03/25/21
--- OUTSIDE RECORDS SUMMARY | 2024-12-20 10:59 | XMS_ITS | Patient Health Record ---
Author Organization [facility] Address [address] [place] [address] Care Team Providers Care Wedding Transportation Driver Name Role Phone Julio César Crum MD Primary Care Provider Jose Reynolds Unavailable [phone] Allergies Allergen (clinical drug ingredient) Drug/Non Drug [...] Polyneuropathy due to type 2 diabetes mellitus (790227018) Type 2 diabetes mellitus with diabetic polyneuropathy (E11.42) Active confirmed Problem Polyneuropathy due to diabetes mellitus type I (954704432) Type 1 diabetes mellitus with diabetic polyneuropathy (E10.42) Active confirmed Problem [id number] Raynaud's diseas e without gangrene (I73.00) Active confirmed Plan Of Treatment Pending Test Test Name Order Date 70439-[id number] SKIN LESIONS, OVER 10/30/19 [id number] SKIN LESIONS, OVER 01/30/20 Insurance Providers Payer Name Payer Address Payer Phone Subscriber Number Group Number Insured Name Patient Relationship to Insured Coverage Start Date Coverage End Date [employer] [place] [employer]vantage [facility] [address] [place] [address] [phone] [id number] Abner Llanos Self - patient is the insured Medical (General) History Medical History History ICD Code Back,Hip,and Knee pain Heart disease High blood pressure diabetes Surgical History Surgery Date(Month/Year) rotator cuff tear repair double bypass surgery appendectomy
== END 2024-12-20 09:52 | disposition home or self-care (01) ==
LOC: HO.US 09:51
PROVIDERS: PCP Internal Medicine; Visit Provider Nurse Practitioner Family
DX: N20.0 Calculus of kidney (principal); R39.9 Unspecified symptoms and signs involving the genitourinary system
CPT/HCPCS: 76770

== ENCOUNTER → 2024-12-20 09:52 | Outpatient (BNV) | payer MEDICARE, SELFPAY | PROVIDERS: PCP Internal Medicine; Visit Provider Radiology Diagnostic Radiology | DX: N28.1 Cyst of kidney, acquired (principal); N20.0 Calculus of kidney; R33.9 Retention of urine, unspecified | CPT/HCPCS: 76770 ==

== ENCOUNTER 2024-12-28 11:49 | Outpatient (REF) | payer MEDICARE, SELFPAY ==
--- OUTSIDE RECORDS SUMMARY | 2024-12-28 12:20 | XMS_ITS | Clinical Summary ---
Author Organization [facility] Address [address] [place] [address] Care Team Providers Care Chaplaincy Name Role Phone Nancy Gaona DO Primary [...] Zoster (Shingles) Vaccine (1 of 2) 12/09/2001 COVID-19 Vaccine ( - 2023-2 5 season) 2024 Influenza Vaccine 03/22/2025 RSV Vaccine 60 years and old er and Patients (1 - 1-dose 75+ series) 12/09/2026 Hepatitis B Vaccines Aged Out No long er eligible based on patient's age to complete this topic Insurance [facility] MEDICARE Care Teams Chaplaincy Relationship Specialty Start Date End Date Nancy Gaona DO PCP - General Endocrinology 03/25/21
== END 2024-12-28 11:50 | disposition home or self-care (01) ==
LOC: HO.HMGCLDS 11:49
PROVIDERS: PCP Internal Medicine; Visit Provider Nurse Practitioner Family
DX: R39.9 Unspecified symptoms and signs involving the genitourinary system (principal); Z12.5 Encounter for screening for malignant neoplasm of prostate
CPT/HCPCS: 36415; 82340; 82507; 82570; 83735; 83945; 83986; 84105; 84133; 84153; 84300; 84392; 84560

== ENCOUNTER → 2025-02-10 20:31 | Outpatient (BNV) | payer MEDICARE, SELFPAY | PROVIDERS: Emergency Provider Internal Medicine; PCP Internal Medicine; Visit Provider Radiology Diagnostic Radiology | DX: R05.9 Cough, unspecified (principal) | CPT/HCPCS: 71045 ==

== ENCOUNTER 2025-02-10 20:49 | Emergency (ER) | payer MEDICARE, SELFPAY ==
--- NOTE | ~2025-02-10 | XR_ITS ---
CLINICAL HISTORY: cough 2 view chest x-ray Comparison: None provided Findings: Minimal platelike atelectasis of the left lung base. Lungs are otherwise clear. Heart size is upper limits of normal. Sternotomy wires are present. Superior most wire is fractured. IMPRESSION: 1. No acute findings. This document has been electronically signed by: Faisal Donato MD on 02/10/2025 22:00:46
[2025-02-10 21:13] VITALS: BP 150/69; PULSE 80; RESP 18; TEMP 37.7; O2SAT 95; BMI 32.2
--- NOTE | 2025-02-10 21:53 | ED.URI ---
HPI - URI/Sore Throat General Chief Complaint: Upper Respiratory Symptoms Stated Complaint: coughing Time Seen by Provider: 02/10/25 21:52 Source: patient Mode of arrival: ambulatory Limitations: no limitations History of Present Illness ED Provider: HPI Narrative: Patient has been congested coughing for last 3- 4 days other family member also sick getting mucopurulent phlegm mostly in the nighttime with occasional wheezes no history of asthma or lung condition patient does get seasonal bronchitis no fever no chills Related Data Home Medications ?Medication ?Instructions ?Recorded ?Confirmed amlodipine 2.5 mg tablet 2.5 mg PO BEDTIME 04/27/22 09/26/24 metoprolol succinate 50 mg 50 mg PO BID 06/28/23 09/26/24 tablet,extended release 24 hr Previous Rx's ?Medication ?Instructions ?Recorded omeprazole 20 mg capsule,delayed 20 mg PO DAILY 90 days #90 caps 05/09/22 release apixaban 5 mg tablet (Eliquis) 5 mg PO BID #180 tabs 11/29/24 metformin 500 mg tablet,extended 500 mg PO QAM #90 caps 01/18/25 release 24 hr cefuroxime axetil 500 mg tablet 500 mg PO BID 7 days #14 tabs 02/10/25 codeine 10 mg-guaifenesin 100 mg/5 10 ml PO Q6H PRN cough #237 mL 02/10/25 mL oral liquid Allergies Allergy/AdvReac Type Severity Reaction Status Date / Time penicillin V Allergy Intermediate hives Verified 02/10/25 21:15 lisinopril AdvReac Mild scratchy Verified 02/10/25 21:15 throat Review of Systems Review of Systems: Yes all other systems are reviewed and are negative [facility] Past Medical History Medical History Pancreatitis Arthritis Renal calculi Decreased hearing of left ear Sleep apnea Paroxysmal atrial fibrillation CAD (coronary artery disease) Vitamin D deficiency Thyroid nodule Obesity HLD (hyperlipidemia) Prediabetes Surgical History History of esophagogastroduodenoscopy (EGD) Hx of lithotripsy Hx of cystoscopy H/O colonoscopy Hx of coronary artery bypass graft Hx of shoulder surgery History of tonsillectomy and adenoidectomy Hx of appendectomy Family History Family History Father CVD (cardiovascular disease) Mother CVD (cardiovascular disease) Hypertension Social History Social History Household Members: Spouse Are you a primary women's health care nurse practitioner to a significant other at home: No Do you presently have visiting nurse or other home services: No Alcohol intake: current Alcohol intake frequency: holidays/special occasions only Patient Tobacco Use Status: Former Tobacco user Tobacco use type: Cigarette Cigarette Packs Per Day: 1 Years Smoked: 5 Advance Directives: Yes Advance Directives on File: Yes Advance Directives Date on File: 05/03/22 Do you have a plan to hurt others: No Plan Physical Exam Vital Signs: Vital Signs: Last Vital Signs Temp 99.9 F 02/10/25 21:13 Pulse 80 02/10/25 21:13 Resp 18 02/10/25 21:13 BP 150/69 H 02/10/25 21:13 Pulse Ox 95 02/10/25 21:13 O2 Del Method Room Air 02/10/25 21:13 BMI result Body Mass Index 32.2 Appearance: Alert. Oriented X3. No acute distress. Eyes: PERRLA, No Nystagmus ENT: Pharynx normal. Oral Mucosa moist Neck: Normal inspection. Neck supple. CVS: Normal heart rate and rhythm. Pulses normal. Respiratory: No respiratory distress. Equal air entry bilateral, no wheezing/rales/rhonchi prolonged expiration Abdomen: Soft and nontender. Bowel sounds are present, no mass palpable, no CVA tenderness Skin: Skin warm and dry. Normal skin color. Normal skin turgor. Extremities: No lower extremity edema. No calf tenderness Neuro: Oriented X 3. No motor deficit. No sensory deficit.No cerebellar signs , cranial nerves II-XII intact Medical Decision Making Medical Decision Making [facility] Narrative: Patient has acute bronchitis chest x-ray COVID flu RSV negative will prescribe cefuroxime Lab Data [facility] Lab Attestation statement: I reviewed the patient's lab results. Labs: Lab Results 02/10/25 Range/Units 21:35 Influenza Type A (PCR) NEGATIVE (Negative) Influenza Type B (PCR) NEGATIVE (Negative) RSV RNA Qual (PCR) NEGATIVE (Negative) SARS-CoV-2 RNA (RT-PCR) NEGATIVE (Negative) S. pyogenes GrpA ALEXIS Negative (Negative) Independent Interpretation I performed an independent interpretation of an: Plain X-Ray Interpretation: No acute Discharge Plan Discharge Clinical Impression: Acute bronchitis Patient Disposition: Home, Self-Care Instructions: Acute Bronchitis (ED) Additional Instructions: Take antibiotic as prescribed Your COVID influenza and chest x-ray negative for acute Cough drops as prescribed Prescriptions: New codeine-guaifenesin 10-100 mg/5 mL liquid 10 ml PO Q6H PRN (Reason: cough) Qty: 237 0RF cefuroxime axetil 500 mg tablet 500 mg PO BID 7 Days Qty: 14 0RF No Action omeprazole 20 mg capsule,delayed release(DR/EC) 20 mg PO DAILY 90 Days Qty: 90 1RF Eliquis 5 mg tablet 5 mg PO BID Qty: 180 3RF metformin 500 mg tablet extended release 24 hr 500 mg PO QAM Qty: 90 3RF amlodipine 2.5 mg tablet 2.5 mg PO BEDTIME metoprolol succinate 50 mg tablet extended release 24 hr 50 mg PO BID Print Language: Uzbek
[2025-02-10 22:08] LABS: IDNOW Serial# 55D5AD1C; Strep A Nucleic Acid Negative (Negative)
[2025-02-10 22:16] LABS: Influenza A PCR NEGATIVE (Negative); Influenza B PCR NEGATIVE (Negative); Resp Syncy Virus RNA Qual PCR NEGATIVE (Negative); SARS COV2 PCR INHOUSE NEGATIVE (Negative)
[2025-02-10] MEDS: cefuroxime axetiL 500 MG TABLET PO (22:59)
[2025-02-10] MEDS: guaiFEN/Codeine SF 200/20/10ML 10 ML LIQUID PO (22:59)
[2025-02-10 23:08] VITALS: BP 150/69; PULSE 80; RESP 18; TEMP 37.7; O2SAT 95
== END 2025-02-10 23:09 | disposition home or self-care (01) ==
PROVIDERS: Emergency Provider Internal Medicine; PCP Internal Medicine
DX: J20.9 Acute bronchitis, unspecified (principal); R05.9 Cough, unspecified; R06.2 Wheezing; Z03.818 Encounter for observation for suspected exposure to other biological agents ruled out; Z79.899 Other long term (current) drug therapy; Z87.891 Personal history of nicotine dependence
CPT/HCPCS: 0241U; 71045; 87651; 99282; 99283

== ENCOUNTER 2025-03-25 08:39 | Outpatient (AMB) | payer MEDICARE, SELFPAY ==
--- NOTE | 2025-03-25 08:59 | MHC.OFFVIS ---
Intake Visit Reasons: follow up/labs/Lith[facility] Intake Note: Patient is present for LABS/LITHOLINK Urology Medication:NONE Antibiotic Allergy:PENICILLIN V Blood Thinner:APIXABAN Research Technician Required: No Allergies penicillin V Allergy (Intermediate, Verified 03/25/25 09:00) hives lisinopril Adverse Reaction (Mild, Verified 03/25/25 09:00) scratchy throat HPI Comments Details: Abner is a 74-year-old male patient of Dr Cordova who was accompanied by his significant other Pham at today's office visit. He has a past medical history of sleep apnea, pancreatitis, arthritis, nephrolithiasis, paroxysmal atrial fibrillation, coronary artery disease, vitamin-D deficiency, hyperlipidemia, obesity, and prediabetes. He presents to the office today for follow-up of his nephrolithiasis. In discussion with the patient today he reports to be doing and feeling well. He reports he completed Litholink yesterday and plans to mail this out later today. Recent renal imaging results were reviewed 01/13. Bilateral kidneys are normal in echotexture and thickness. There are bilateral renal cysts. There is a nonobstructing 4 mm calculus in the interpolar region of the right kidney. No hydronephrosis noted bilaterally. The prostate measures approximately 8 mLs. He reports he is attempting to drink plenty of water daily as well as adding 1 oz of lemon juice to water daily. Patient with a previous history of obstructing 3 mm stone in the distal right UVJ 08/14. During last office visit patient had been reporting episodes of nocturia and we discussed correlation of compliance in CPAP with nocturia. He does continue to attempt to be more compliant with CPAP as well as increasing his hydration. He denies incontinence, hematuria, dysuria, foul smelling urine, changes to urinary stream, flank pain, fever, and or chills. In review of patient's chart it appears PSAs are as follows: 10/10 1.7, 12/08 2.1, 01/11 2.4, 01/13 2.8 We discussed importance of diabetes management for improvement in lower urinary tract symptoms as well as overall health and well-being. In review of patient's chart it appears most recent A1c 07/15 6.0. We discussed at length potential causes of nephrolithiasis as well as importance of adequate hydration in relation to nephrolithiasis. He otherwise offers no other issues or concerns at this time. [facility] Medical History Pancreatitis Arthritis Renal calculi Decreased hearing of left ear Sleep apnea Paroxysmal atrial fibrillation CAD (coronary artery disease) Vitamin D deficiency Thyroid nodule Obesity HLD (hyperlipidemia) Prediabetes Surgical History History of esophagogastroduodenoscopy (EGD) Hx of lithotripsy Hx of cystoscopy H/O colonoscopy Hx of coronary artery bypass graft Hx of shoulder surgery History of tonsillectomy and adenoidectomy Hx of appendectomy Family History Father CVD (cardiovascular disease) Mother CVD (cardiovascular disease) Hypertension Social History Household Members: Spouse Are you a primary wound care rn to a significant other at home: No Do you presently have visiting nurse or other home services: No Alcohol intake: current Alcohol intake frequency: holidays/special occasions only Patient Tobacco Use Status: Former Tobacco user Tobacco use type: Cigarette Cigarette Packs Per Day: 1 Years Smoked: 5 Advance Directives Date on File: 05/03/22 Review of Systems Const All systems reviewed & are unremarkable except as noted in HPI and below Physical Exam Const General: cooperative, healthy appearing, comfortable, no acute distress, well developed, alert and awake Nutritional Appearance: overweight Orientation/consciousness: patient oriented x3 Limitations: no limitations HEENT Head: Yes normal to inspection, Yes normocephalic and Yes atraumatic Ears: hearing grossly normal bilaterally Eyes General: appearance normal, both eyes and all related structures Neck Neck: Yes normal visual inspection and Yes trachea midline Chest Chest palpation & inspection: normal inspection of the chest Resp Effort & Inspection: normal respiratory effort and able to speak in complete sentences Cardio Rate: regular rate GI Inspection: Yes normal to inspection General: Yes no CVA tenderness Back/Spine/Pelvis Back: no CVA tenderness Skin General skin exam: no rashes or lesions noted Neuro General: patient oriented x3 Extrem General: Yes normal to inspection Psych Appearance: grossly normal and well kempt Mental Status: mental status grossly normal Speech and movement: Normal speech and movement present and Clear speech present Affect: normal affect Attitude: cooperative Thought process: Normal thought process present Thought content: Normal thought content present Insight: Fair insight present (Psych) Judgement: Fair judgement present (Psych) Results AMB Urinalysis, Automated UA Leukoctes 0 Ritu/uL Last Edit by ROSAS Walker on 03/25/25 09:13 UA Nitrite Negative Last Edit by Joseph Eddy CCM on 03/25/25 09:13 UA Urobilinogen 0.2 mg/dL Last Edit by Joseph Eddy [facility] on 03/25/25 09:13 UA Protein 15 mg/dL Last Edit by Joseph Eddy [facility] on 03/25/25 09:13 UA pH 6.0 Last Edit by Joseph Eddy [facility] on 03/25/25 09:13 UA Blood 0 Giovanni/uL Last Edit by Joseph Eddy CCM on 03/25/25 09:13 UA Specific [place] 1.020 Last Edit by Joseph Eddy CCM on 03/25/25 09:13 UA Ketone Negative Last Edit by Joseph Eddy [facility] on 03/25/25 09:13 UA Bilirubin 0 mg/dL Last Edit by Joseph Eddy [facility] on 03/25/25 09:13 UA Glucose 0 mg/dL Last Edit by Joseph Eddy [facility] on 03/25/25 09:13 Results Reviewed Results Reviewed: Laboratory Last Values Urine pH (Auto) 6.0 03/25/25 09:13 Specific [place] (Auto) 1.020 03/25/25 09:13 Urine Protein (Auto) 15 mg/dL 03/25/25 09:13 Glucose (UA)(Auto) 0 mg/dL 03/25/25 09:13 Urine Ketones (Auto) Negative 03/25/25 09:13 Urine Blood (Auto) 0 Giovanni/uL 03/25/25 09:13 Urine Nitrite (Auto) Negative 03/25/25 09:13 Urine Bilirubin (Auto) 0 mg/dL 03/25/25 09:13 Urine Urobilinogen (Auto) 0.2 mg/dL 03/25/25 09:13 Leukocyte Esterase (Auto) 0 Ritu/uL 03/25/25 09:13 Date of Service: 12/20/24 Procedure(s): US retroperitoneal comp FINDINGS: Right kidney: The right kidney measures 12.0 x 6.3 x 5.6 cm. Renal parenchymal echotexture and thickness are normal. There is a 1.6 x 1.5 x 2.0 cm cyst in the interpolar region demonstrating an associated calcifications. There is a 4 mm nonobstructing calculus in the interpolar region. There is no hydronephrosis. Left Kidney: The left kidney measures 11.8 x 6.3 x 4.4 cm. Renal parenchymal echotexture and thickness are normal. There are cysts in the interpolar region measuring 1.2 x 1.3 x 1.1 cm and 1.2 x 0.8 x 1.1 cm. There is no hydronephrosis or renal calculi. The urinary bladder is unremarkable. Bilateral ureteral jets are identified. Before voiding, the urinary bladder measured 10.6 x 6.2 x 6.9 cm, for an estimated volume of 238 mL. After voiding, the urinary bladder measured 5.1 x 2.3 x 2.7 cm, for an estimated volume of 17 mL. The prostate measures 2.9 x 2.2 x 2.5 cm. IMPRESSION: 1. Bilateral renal cysts as described. 2. 4 mm nonobstructing right renal calculus. 3. Post void bladder residual of 17 mL. Assessment & Plan Assessment & Plan (1) Renal calculi: Comment: 2015 Code(s): N20.0 - Calculus of kidney Category: Medical (2) Lower urinary tract symptoms: Code(s): R39.9 - Unspecified symptoms and signs involving the genitourinary system Category: Medical (3) Renal cyst: Code(s): N28.1 - Cyst of kidney, acquired Category: Medical Plan In office urinalysis results reviewed with the patient today; as noted above. We discussed importance of adequate hydration relation to nephrolithiasis as well as overall health and well-being. Recent PSA results reviewed with the patient today; as noted above. Recent retroperitoneal ultrasound results reviewed with the patient today; as noted above. Will continue with surveillance monitoring of nephrolithiasis, PSAs, and renal cysts. Will await results of Litholink for further assessment evaluation. We discussed the importance of management and diabetes as well as compliance in CPAP to assist with urological conditions as well as overall health and well-being. Follow-up in 6 months with imaging, labs, and PVR; or sooner with any issues, concerns, and or questions. Orders: Orders AMB Urinalysis Automated Today Z13.9 - Encounter for screening, unspecified US renal BI 6 Months N20.0 - Calculus of kidney Prostate Specific Antigen 6 Months N20.0 - Calculus of kidney, R39.9 - Unspecified symptoms and signs involving the genitourinary system Patient Instructions: The patient had an opportunity to ask questions regarding the treatment plan. All questions were answered. Physical exam, labs, and imaging were discussed and reviewed in detail. As well as risks, benefits, and discussion of treatment choices. No major barriers to understanding were identified. The patient expressed understanding and agreement with the above treatment plan. The patient was made aware they should contact our office by phone for worsening of their current condition, the appearance of new symptoms, or with any questions or concerns. Compliance is encouraged with any medications and follow up testing that is ordered. It is a privilege to be allowed the opportunity to participate in? your urological care.? Again, if you have any questions or concerns If you have any questions or concerns please do not hesitate to contact me. The office is [phone]. This note is constructed using voice recognition software. While every effort has been made to ensure accuracy accounts receivable supervisor errors may have been included. Yours sincerely, [employer] C[employer] Level of Care Code Est Pt Level 3 (49555) Complex EM visit Add On G2211 Diagnoses Renal calculi N20.0 Lower urinary tract symptoms R39.9 Renal cyst N28.1
--- OUTSIDE RECORDS SUMMARY | 2025-03-25 09:01 | XMS_ITS | Clinical Summary ---
Author Organization [facility] Address [address] [place] [address] Care Team Providers Care Hydrology Technician Name Role Phone Nancy Gaona DO Primary [...] patient's age to complete this topic Insurance [facility] MEDICARE Care Teams Hydrology Technician Relationship Specialty Start Date End Date Nancy Gaona DO PCP - General Endocrinology 03/25/21
== END 2025-03-25 09:42 | disposition home or self-care (01) ==
LOC: HO.HUSH 08:40
PROVIDERS: PCP Internal Medicine; Visit Provider Nurse Practitioner Family
DX: N20.0 Calculus of kidney (principal); R39.9 Unspecified symptoms and signs involving the genitourinary system; N28.1 Cyst of kidney, acquired; Z13.9 Encounter for screening, unspecified
CPT/HCPCS: 99213; G2211

== ENCOUNTER → 2025-03-25 08:39 | Outpatient (BNVA) | payer MEDICARE, SELFPAY | PROVIDERS: PCP Internal Medicine; Visit Provider Nurse Practitioner Family | DX: N20.0 Calculus of kidney (principal); N28.1 Cyst of kidney, acquired; R39.9 Unspecified symptoms and signs involving the genitourinary system | CPT/HCPCS: 81003; 99212 ==

== ENCOUNTER 2025-04-12 09:19 | Outpatient (AMB) | payer MEDICARE, SELFPAY ==
--- NOTE | 2025-04-12 09:24 | MHC.PC.OV ---
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 Accompanied by: Spouse Allergies penicillin V Allergy (Intermediate, Verified 04/12/25 09:24) hives lisinopril Adverse Reaction (Mild, Verified 04/12/25 09:24) scratchy throat Medication List - Last Reconciled 04/12/25 by ERIN Bianchi amlodipine 2.5 mg PO BEDTIME apixaban (Eliquis) 5 mg PO BID gabapentin 300 mg PO BEDTIME metformin ER 500 mg PO ONCE metoprolol succinate ER 50 mg PO BID omeprazole 20 mg PO DAILY 90 days Tobacco use date assessed: 04/12/25 HPI HPI Comments History of Present Illness Details 74-year-old male with history of prediabetes, hyperlipidemia, vitamin-D deficiency, coronary artery disease, paroxysmal atrial fibrillation presents to the office today for management of chronic conditions and for annual physical exam. He lives at home with his who is present in the office he feels safe there. He continues to work full-time and does enjoy this. Occasional alcohol use. He is a former cigarette smoker, only smoking 5 years. No drug use including marijuana. Paroxysmal atrial fibrillation-follows with [facility] annually. On Eliquis and rate controlled with metoprolol Prediabetes ANGIE-on CPAP HLD-not on statin Hypertension-on amlodipine, metoprolol Concerns: Reporting neuropathy of the bilateral feet particularly when he is going to bed but also reports tenderness as if he had stepped on something that has been ongoing for months. He states it is worse after he gets a pedicure when newer thinner skin is exposed Reporting left-sided chest pain-somewhat of a vague historian but states it feels like a tightness, possibly pleuritic. No radiation. No associated symptoms. Has had upper respiratory symptoms with postnasal drip and cough that have now resolved. No shortness a breath or wheezing. Had been taking Claritin but stopped but does continue using Flonase Mole on back- feels this is new and itchy Health maintenance: Last colonoscopy 04/2022 with 5 year recall due to tubular adenoma. Dr. Sommer ROS: General: No fevers, malaise, unintentional weight loss HEENT: No blurred vision, diplopia. No sore throat, nasal congestion, rhinorrhea, sinus pain, ear pain. No hearing loss Neck - no adenopathy Cardiovascular: No chest pain, palpitations, or leg edema Respiratory: No shortness of breath, wheezing, cough GI: No dysphagia, odynophagia, globus sensation. No abdominal pain, nausea, vomiting, diarrhea, constipation, melena, hematochezia : No dysuria, hematuria, increased urinary frequency, decreased urinary output. No testicular swelling or pain. No penile discharge MSK: No myalgia, back pain, arthralgias Neuro: No headaches, weakness, paresthesias Psych: no depression/anxiery. No AH/VH. No SI/HI Skin: No rashes. see hpi EXAM: Constitutional - Awake and Alert, No apparent distress Eyes - PERRLA, EOMI. Anicteric Ears - external ears normal, TMs intact and pearly prabhakar with good cone of light. Left canal obstructed with cerumen, scant cerumen in the right canal Nose- septum midline, nares clear, no sinus tenderness Mouth/throat- mucosa moist, tongue and uvula midline, no erythema/edema or tonsillar adenopathy. Neck-trachea midline, thyroid symmetric without palpable nodules, no adenopathy Cardiovascular - S1S2, RRR, No edema Respiratory - Normal lung expansion, Normal respiratory effort, No respiratory distress, CTA bilaterally Chest - reproducible tenderness to palpation Gastrointestinal - NT / ND; +BS; No rebound or guarding - No CVA tenderness Extremities - no calf tenderness bilaterally, no swelling Musculoskeletal - Normal inspection, normal ROM Skin - Warm/Dry, round but scaling multicolored nevus on back Neurological - Alert & oriented x3, CN II-XII in tact, 5/5 strength BUE and BLE, 2+ patellar reflexes, sensation intact Psychological - Appropriate affect [facility] Medical History (Updated 04/12/25 @ 19:58 by ERIN Bianchi) Pancreatitis Arthritis Renal calculi Decreased hearing of left ear Sleep apnea Paroxysmal atrial fibrillation CAD (coronary artery disease) Vitamin D deficiency Thyroid nodule Obesity HLD (hyperlipidemia) Prediabetes Surgical History (Updated 04/11/25 @ 15:50 by Radha Murray) History of esophagogastroduodenoscopy (EGD) Hx of lithotripsy Hx of cystoscopy H/O colonoscopy (~04/30/22) Hx of coronary artery bypass graft Hx of shoulder surgery History of tonsillectomy and adenoidectomy Hx of appendectomy Family History Father CVD (cardiovascular disease) Mother CVD (cardiovascular disease) Hypertension Social History Household Members: Spouse Are you a primary personal care assistant to a significant other at home: No Do you presently have visiting nurse or other home services: No Alcohol intake: current Alcohol intake frequency: holidays/special occasions only Patient Tobacco Use Status: Former Tobacco user Tobacco use type: Cigarette Cigarette Packs Per Day: 1 Years Smoked: 5 e-Cigarette/Vaping Use: Never Used Advance Directives Date on File: 05/03/22 Questionnaire PHQ-9 Over the last 2 weeks, how often have you been bothered by any of the following problems? 1. Little interest or pleasure in doing things: not at all 2. Feeling down, depressed, or hopeless: not at all 3. Trouble falling or staying asleep, or sleeping too much: not at all 4. Feeling tired or having little energy: not at all 5. Poor appetite or overeating: not at all 6. Feeling bad about yourself - or that you are a failure or have let yourself or your family down: not at all 7. Trouble concentrating on things, such as reading the newspaper or watching television: not at all 8. Moving or speaking so slowly that other people could have noticed. Or the opposite - being so fidgety or restless that you have been moving around a lot more than usual: not at all 9. Thoughts that you would be better off or of hurting yourself in some way: not at all Total score: 0 Source: Developed by Drs. Levi Santana, Natalie Aly, Mayank Fontanez and colleagues, with an educational fidelina from [email or web address]. Thrive Questionnaire Date Thrive assessed: 04/12/25 I am a: Patient What is your living situation today?: I have a steady place to live Within the past 12 months, did the food you bought not last and you didn't have the money to get more?: Never true Within the past 12 months, did you worry whether your food would run out before you got money to buy more?: Never true Do you have trouble paying for medicines?: No Do you have trouble getting transportation to medical appointments?: No Do you have trouble paying your heating and electricity bill?: No Do you have trouble taking care of your child, family member or friend?: No Do you have trouble with day-to-day activities such as bathing, preparing meals, shopping, managing finances, etc.?: No Are you currently unemployed and looking for a job?: No Are you interested in more education?: No THRIVE Score: 0 AUDIT C Alcohol Use Questionnaire (AUDIT-C) 1. How often do you have a drink containing alcohol?: Monthly or less 2. How many drinks containing alcohol do you have on a typical day when you are drinking?: 1 or 2 Total Score: 1 KEYONNA-7 AMB Questionnaire KEYONNA-7 Date KEYONNA - 7 assessed: 04/12/25 Feeling nervous, anxious, or on edge: 0 = Not at all Not being able to stop or control worryin = Nearly every day Worrying too much about different things: 3 = Nearly every day Trouble relaxin = Not at all Being so restless that it is hard to sit still: 0 = Not at all Becoming easily annoyed or irritable: 0 = Not at all Feeling afraid as if something awful might happen: 0 = Not at all Total KEYONNA-7 score (0-4 normal; 5-9 mild; 10-14 moderate; 15-21 severe): 6 Source: Developed by Drs. Levi Santana, Natalie Aly, Mayank Fontanez and colleagues, with an educational fidelina from [email or web address]. Physical exam (Primary Care) Vital Signs: Last Vital Signs Temp 98.9 F 04/12/25 09:25 Pulse 64 04/12/25 09:25 Resp 17 04/12/25 09:25 BP 142/70 H 04/12/25 09:25 Pulse Ox 97 04/12/25 09:25 Oxygen Delivery Method Room Air 04/12/25 09:25 BMI result Body Mass Index 33.2 Tobacco/Smoking Status: Tobacco use Status Tobacco use date assessed 04/12/25 04/12/25 09:28 Patient Tobacco Use Status Former Tobacco user 04/12/25 09:28 Tobacco use type Cigarette 04/12/25 09:28 e-Cigarette/Vaping Use Never Used 04/12/25 09:28 PHQ-9: PHQ-9 Score PHQ-9: Total score 0 04/12/25 10:46 Thrive Assessment: Date of Thrive Assessment Date Thrive assessed 04/12/25 04/12/25 09:38 Office Procedures Cerumen Removal From which ear canal was the cerumen removed: bilateral Removal: irrigation Notes: patient tolerated procedure well, no complications and ear canal clear [id number] Wax Removal by Spoon/Curette EKG Details: nsr, no acute ischemic changes, early repol noted 12390-Gznoszugyeqfmtwnb, Complete Coding Level of Care Code Est Pt Level 4 (75741) New Pt Prev Care >65yr (27317) Diagnoses Routine medical exam Z00.00 Paroxysmal atrial fibrillation I48.0 Hyperlipidemia, unspecified hyperlipidemia type E78.5 Hyperlipidemia type: unspecified Prediabetes R73.03 Atypical chest pain R07.89 Atypical nevus D22.9 Hearing loss due to cerumen impaction H61.20 CPT Codes Office Procedure - CPT: 26678-Aim Wax Removal by Spoon/Curette ([id number]) EKG - CPT: 93985-Fwpsizuupxctlvkvy, Complete ([id number]) Assessment & Plan Assessment & Plan (1) Routine medical exam: Code(s): Z00.00 - Encounter for general adult medical examination without abnormal findings Plan: Plain as below (2) Paroxysmal atrial fibrillation: Comment: follows w/[facility] yearly Code(s): I48.0 - Paroxysmal atrial fibrillation Category: Medical Plan: Rate controlled. Continue Eliquis, metoprolol. Follow up with Cardiology as scheduled (3) HLD (hyperlipidemia): Code(s): E78.5 - Hyperlipidemia, unspecified Category: Medical Qualifiers: Hyperlipidemia type: unspecified Qualified Code(s): E78.5 - Hyperlipidemia, unspecified Plan: Lipid panel ordered. (4) Prediabetes: Comment: taking metformin-glucose usually under 100-last A1C 5.3%-dx 2018 Code(s): R73.03 - Prediabetes Category: Medical Plan: A1c ordered. Can continue metformin (5) Atypical chest pain: Code(s): R07.89 - Other chest pain Category: Medical Plan: EKG ordered without any acute ischemic changes. Chest pain is likely musculoskeletal in nature likely secondary to upper respiratory infection. Can use Tylenol as needed. Educated on signs and symptoms of need for urgent/emergent intervention (6) Atypical nevus: Code(s): D22.9 - Melanocytic nevi, unspecified Plan: Refer to dermatology (7) Hearing loss due to cerumen impaction: Code(s): H61.20 - Impacted cerumen, unspecified ear Plan: tolerated procedure well. small tm rupture R side, ?old- no pain, drainage. Advised to monitor. hearing improved Plan Routine screening labs as ordered below Continue with screening colonoscopies and PSA Continue following for annual skin exams and use sun protection Annual eye exams Wear seat belt in car Recommend regular exercise and healthy diet Follow up in 4 months Trial gabapentin at night for neuropathy Orders: Orders Hemoglobin A1c Today ERIN Bianchi R10.11 - Right upper quadrant pain, Z00.00 - Encounter for general adult medical examination without abnormal findings Prostate Specific Antigen Today ERIN Bianchi R10.11 - Right upper quadrant pain, Z00.00 - Encounter for general adult medical examination without abnormal findings Complete Blood Count Auto Diff Today ERIN Bianchi R10.11 - Right upper quadrant pain, Z00.00 - Encounter for general adult medical examination without abnormal findings CT abdomen wo IV con Today ERIN Bianchi R10.11 - Right upper quadrant pain, R10.31 - Right lower quadrant pain Basic Metabolic Panel 4 Months ERIN Bianchi E78.5 - Hyperlipidemia, unspecified, I25.10 - Atherosclerotic heart disease of lime coronary artery without angina pectoris, R73.03 - Prediabetes Hemoglobin A1c 4 Months ERIN Bianchi E78.5 - Hyperlipidemia, unspecified, I25.10 - Atherosclerotic heart disease of lime coronary artery without angina pectoris, R73.03 - Prediabetes Lipid Panel Today ERIN Bianchi R10.11 - Right upper quadrant pain, Z00.00 - Encounter for general adult medical examination without abnormal findings Liver Panel Today ERIN Bianchi R10.11 - Right upper quadrant pain, Z00.00 - Encounter for general adult medical examination without abnormal findings Basic Metabolic Panel Today ERIN Bianchi R10.11 - Right upper quadrant pain, Z00.00 - Encounter for general adult medical examination without abnormal findings Referrals Dermatology Referral ERIN Bianchi D22.9 - Melanocytic nevi, unspecified, Z12.83 - Encounter for screening for malignant neoplasm of skin Medications: New gabapentin 300 mg PO BEDTIME 90 caps 1RF ERIN Bianchi Changed From metformin ER 500 mg PO QAM 90 caps 3RF To metformin ER 500 mg PO ONCE Keira Madden MD
--- OUTSIDE RECORDS SUMMARY | 2025-04-12 09:24 | XMS_ITS | Clinical Summary ---
Author Organization [facility] Address [address] [place] [address] Care Team Providers Care Stock Crane Operator Name Role Phone Nancy Gaona DO Primary Care Provider [phone] Active Problems Problem Noted Date Diagnosed Date [...] patient's age to complete this topic Insurance [facility] MEDICARE Care Teams Stock Crane Operator Relationship Specialty Start Date End Date Nancy Gaona DO PCP - General Endocrinology 03/25/21
[2025-04-12 09:25] VITALS: BP 142/70; PULSE 64; RESP 17; TEMP 37.2; O2SAT 97; BMI 33.2
== END 2025-04-12 14:06 | disposition home or self-care (01) ==
LOC: HO.HMCHD 09:20
PROVIDERS: PCP Internal Medicine; Visit Provider Physician Assistant
DX: Z00.00 Encounter for general adult medical examination without abnormal findings (principal); I48.0 Paroxysmal atrial fibrillation; E78.5 Hyperlipidemia, unspecified; R07.89 Other chest pain; R73.03 Prediabetes; D22.9 Melanocytic nevi, unspecified; H61.23 Impacted cerumen, bilateral

== ENCOUNTER → 2025-04-12 09:19 | Outpatient (BNVA) | payer MEDICARE, SELFPAY | PROVIDERS: PCP Internal Medicine; Visit Provider Physician Assistant | DX: Z00.01 Encounter for general adult medical examination with abnormal findings (principal); I48.0 Paroxysmal atrial fibrillation; E78.5 Hyperlipidemia, unspecified; R73.03 Prediabetes; R07.89 Other chest pain; D22.9 Melanocytic nevi, unspecified; H61.23 Impacted cerumen, bilateral; Z79.01 Long term (current) use of anticoagulants; Z79.899 Other long term (current) drug therapy; Z13.39 Encounter for screening examination for other mental health and behavioral disorders; Z13.30 Encounter for screening examination for mental health and behavioral disorders, unspecified | CPT/HCPCS: 69209; 93005; 96127; 99212; 99387 ==

== ENCOUNTER 2025-04-18 06:56 | Outpatient (REF) | payer MEDICARE, SELFPAY ==
--- OUTSIDE RECORDS SUMMARY | 2025-04-18 06:58 | XMS_ITS | Clinical Summary ---
Author Organization [facility] Address [address] [place] [address] Care Team Providers Care Chuck Splitter Name Role Phone LiborioNancy pittman Primary Care Provider [phone] Active Problems Problem Noted Date Diagnosed Date Vitamin D deficiency 02/18/2021 Social History Tobacco Use Types Packs/Day Years Used Date Smoking Tobacco: Never Assessed Sex and Gender Information Value Date Recorded Sex Assigned at Not on file Legal Sex Male 6:56 PM EST Gender Identity Not on file Sexual Orientation Not on file Plan of Treatment Health Maintenance Due Date Last Done Comments Advance Care Planning 1950 Hepatitis C Virus Screening 1950 DTaP/Tdap/Td Vaccines [...] age to complete this topic Insurance [facility] MEDICARE Care Teams Chuck Splitter Relationship Specialty Start Date End Date Nancy Gaona DO PCP - General Endocrinology 03/25/21
[2025-04-18 10:25] LABS: MANUAL DIFF FLAG NO
[2025-04-18 10:32] LABS: Hematocrit 42.1 % (42.0-52.0); Hemoglobin 13.7 g/dl (14.0-18.0); Imm Gran Abs Auto 0.02 X10*3/uL (0.00-0.03); Imm Gran Pct Auto 0.5 % (0.0-0.4); Lymphocytes Absolute Auto 1.3 X10*3/uL (1.2-4.9); Mean Corpuscular HGB Conc 32.5 g/dl (31.0-36.0); Mean Corpuscular Hemoglobin 31.3 pg (27.0-33.0); Mean Corpuscular Volume 96.1 fL (80.0-98.0); NRBC Abs Auto 0.000 X10*3/uL (0.0-0.012); NRBC Pct Auto 0.0 /100WBC (0.0-0.2); Platelet Count 153 X10*3/uL (160-400); Red Blood Count 4.38 X10*6/uL (4.60-5.80); White Blood Count 4.2 X10*3/uL (4.8-10.8)
[2025-04-18 10:42] LABS: Alanine Aminotransferase 39 U/L (0-40); Albumin Level 4.2 g/dL (3.5-5.0); Alkaline Phosphatase 73 U/L (39-117); Anion Gap 7 (12-20); Aspartate Amino Transferase 39 U/L (5-37); Blood Urea Nitrogen 18 mg/dL (9-16); Calcium 9.1 mg/dL (8.4-10.2); Carbon Dioxide 31 mmol/L (22-29); Chloride 107 mmol/L (96-108); Cholesterol 214 mg/dL (<200); Estimated Glomerular Filt Rate > 60; HDL Cholesterol 33 mg/dL (>40); Potassium 4.4 mmol/L (3.3-5.1); Sodium 141 mmol/L (135-145); Total Protein 6.7 g/dL (6.5-8.0); Triglycerides 219 mg/dL (<150)
[2025-04-18 10:50] LABS: Hemoglobin A1C 153.8287 umol/L; Total Hemoglobin (HGBA1C) 3599.3210 umol/L
[2025-04-18 11:01] LABS: Prostate Specific Antigen 3.21 ng/mL (<0.05-4.0)
== END 2025-04-18 06:57 | disposition home or self-care (01) ==
LOC: HO.HMGCLDS 06:56
PROVIDERS: Visit Provider Physician Assistant
DX: Z00.00 Encounter for general adult medical examination without abnormal findings (principal); R10.11 Right upper quadrant pain; Z12.5 Encounter for screening for malignant neoplasm of prostate; Z13.1 Encounter for screening for diabetes mellitus; Z13.6 Encounter for screening for cardiovascular disorders
CPT/HCPCS: 36415; 80048; 80061; 80076; 83036; 84153; 85025

== ENCOUNTER 2025-06-28 09:45 | Outpatient (AMB) | payer MEDICARE, SELFPAY ==
[2025-06-28 09:50] VITALS: BP 128/70; PULSE 66; BMI 32.0
--- NOTE | 2025-06-28 09:50 | A.OFFVIS_ITS ---
Vital Signs 06/28/25 09:50 Height 5 ft 11 in Weight 229 lb 11.547 oz BMI 32.0 BP 128/70 Blood Pressure Location Lt brachial Position Sitting Pulse 66 Pulse Source Monitor Intake Visit Reasons: 1 yr follow up Intake Note: 1 year f/u Accompanied by: Self / Same As Patient Allergies penicillin V Allergy (Intermediate, Verified 06/28/25 09:54) hives lisinopril Adverse Reaction (Mild, Verified 06/28/25 09:54) scratchy throat Medication List - Last Reconciled 06/28/25 by Shahram Suarez MD amlodipine 2.5 mg PO BEDTIME apixaban (Eliquis) 5 mg PO BID gabapentin 300 mg PO BEDTIME metformin ER 500 mg PO ONCE metoprolol succinate ER 50 mg PO BID omeprazole 20 mg PO DAILY 90 days HPI Comments Details: Abner comes for follow-up. He is currently not on any lipid modification therapy, unclear as to why. He does not recall why atorvastatin was stopped. He knows that he was advised PCSK9 inhibitor therapy but this was very expensive and he said he can not afford it. He denies any exertional chest pain or shortness of breath. Says remains very active. Denies any prolonged palpitation irregular heartbeat. No lightheadedness, syncope. He denies any orthopnea, PND, leg edema. Does complain of congestion related to postnasal drip and mucus plugging. [facility] Medical History Pancreatitis Arthritis Renal calculi Decreased hearing of left ear Sleep apnea Paroxysmal atrial fibrillation CAD (coronary artery disease) Vitamin D deficiency Thyroid nodule Obesity HLD (hyperlipidemia) Prediabetes Surgical History History of esophagogastroduodenoscopy (EGD) Hx of lithotripsy Hx of cystoscopy H/O colonoscopy (~04/30/22) Hx of coronary artery bypass graft Hx of shoulder surgery History of tonsillectomy and adenoidectomy Hx of appendectomy Family History Father CVD (cardiovascular disease) Mother CVD (cardiovascular disease) Hypertension Social History Household Members: Spouse Are you a primary managed care provider to a significant other at home: No Do you presently have visiting nurse or other home services: No Alcohol intake: current Alcohol intake frequency: holidays/special occasions only Patient Tobacco Use Status: Former Tobacco user Tobacco use type: Cigarette Cigarette Packs Per Day: 1 Years Smoked: 5 e-Cigarette/Vaping Use: Never Used Advance Directives Date on File: 05/03/22 Review of Systems Const Denies daytime sleepiness, Denies difficulty sleeping, Denies snoring, Denies stops breathing during sleep and Denies weakness Card Denies chest pain, Denies rapid heart rate, Denies irregular heart rhythm, Denies claudication, Denies leg edema, Denies lightheadedness, Denies palpitations, Denies dyspnea, Reports dyspnea on exertion, Denies orthopnea, Denies paroxysmal nocturnal dyspnea and Denies slow heart rate Resp Denies cough, Denies dyspnea, Reports dyspnea on exertion and Denies snoring GI Reports no additional complaints, Denies hematochezia, Denies change in stool character and Denies dyspepsia Musc Denies abnormal gait, Denies muscle weakness and Denies numbness Neuro Denies abnormal gait, Denies numbness and Denies weakness Endo Denies palpitations Physical Exam Vital Signs: Last Vital Signs Pulse 66 06/28/25 09:50 BP 128/70 06/28/25 09:50 BMI result Body Mass Index 32.0 Const General: cooperative, comfortable, no acute distress, alert and awake Nutritional Appearance: obese Orientation/consciousness: patient oriented x3 Limitations: no limitations Neck Neck: Yes trachea midline, Yes supple and Yes no JVD Carotids: no bruits Chest Chest palpation & inspection: normal inspection of the chest and other (Well- healed sternotomy scar) Resp Effort & Inspection: normal respiratory effort Auscultation: clear to auscultation bilaterally Cardio Jugular venous distension: no JVD Palpation: normal PMI Rate: regular rate Rhythm: regular rhythm Heart sounds: S1 normal heart sound present, S2 normal heart sound present and Other heart sounds present (S4 present) GI Auscultation: normal bowel sounds Skin General skin exam: no rashes or lesions noted Neuro General: patient oriented x3 and no focal motor deficits Extrem General: Yes no clubbing, cyanosis or edema Psych Appearance: grossly normal Office Procedures EKG Details: EKGs shows normal sinus rhythm nonspecific ST-T changes [id number]-[id number], Complete Assessment & Plan Assessment & Plan (1) CAD (coronary artery disease): Comment: follows w/[facility] yearly Code(s): I25.10 - Atherosclerotic heart disease of [place] coronary artery without angina pectoris Category: Medical Plan: CAD with remote coronary artery bypass grafting with myocardial perfusion imaging in 2022 within normal limits. He currently does not complain of any clear symptoms from cardiac perspective. He has not been compliant with follow- up as well as medical therapy. Unclear abdullahi off statin therapy. Importance of statin therapy to preserve coronary artery graft as well as patency of mcgrath coronary artery was discussed. I would suggest to restart Crestor 20 mg daily. Follow-up lipid panel in 3 months time. His blood pressure is slightly elevated but he is not interested in pursuing any further change in therapy. Advised to monitor blood pressure at home and maintain a log. Blood pressure remains elevated consider additional therapy with uptitrate his amlodipine to 5 mg daily. Continue aggressive diabetes management goal hemoglobin A1c less than 7% being pursue through your office. Importance of regular physical activity was discussed. Currently on full oral anticoagulation Eliquis and therefore would avoid aspirin therapy to reduce bleeding risk (2) Paroxysmal atrial fibrillation: Comment: follows [facility] yearly Code(s): I48.0 - Paroxysmal atrial fibrillation Category: Medical Plan: Paroxysmal atrial fibrillation without any obvious clinical recurrence at this point time. Continue metoprolol therapy which she is tolerating well. Avoidance of stimulants was discussed. Continue full oral anticoagulation, currently on Eliquis 5 mg b.i.d.. At least semi annual renal function test should be pursued. Will follow up in the clinic in 1 year's time, sooner PRN. Thank you for allowing me to partake in his care Orders: Orders Lipid Panel Today I25.10 - Atherosclerotic heart disease of [place] coronary artery without angina pectoris CA echo transthoracic complete 2 Months I48.0 - Paroxysmal atrial fibrillation Medications: New rosuvastatin 20 mg PO DAILY 30 tabs 5RF Coding Level of Care Code Est Pt Level 4 (45586) Complex EM visit Add On G2211 Diagnoses CAD (coronary artery disease) I25.10 Paroxysmal atrial fibrillation I48.0 CPT Codes EKG - CPT: 10207-Evfwvlltzjebmutge, Complete ([id number])
== END 2025-06-28 10:11 | disposition home or self-care (01) ==
LOC: HO.HCS 09:45
PROVIDERS: PCP Internal Medicine; Visit Provider Internal Medicine Cardiovascular Disease
DX: I25.10 Atherosclerotic heart disease of native coronary artery without angina pectoris (principal); I48.0 Paroxysmal atrial fibrillation
CPT/HCPCS: 93010; 99214; G2211

== ENCOUNTER → 2025-06-28 09:45 | Outpatient (BNVA) | payer MEDICARE, SELFPAY | PROVIDERS: PCP Internal Medicine; Visit Provider Internal Medicine Cardiovascular Disease | DX: I25.10 Atherosclerotic heart disease of native coronary artery without angina pectoris (principal); I48.0 Paroxysmal atrial fibrillation | CPT/HCPCS: 93005; 99212 ==

== ENCOUNTER 2025-07-15 09:05 | Outpatient (AMB) | payer MEDICARE, SELFPAY ==
--- NOTE | 2025-07-15 09:07 | A.OFFPC_ITS ---
Vital Signs 07/15/25 09:13 Height 5 ft 10.59 in Weight 102.965 kg BMI 32.0 BP 138/66 Blood Pressure Location Lt brachial Position Standing Respiration 18 Pulse 73 Pulse Source Pulse Oximeter Temp 98.5 F Temp Source Temporal Artery Scan Pulse Oximetry (%) 95 Oxygen Delivery Method Room Air Intake Visit Reasons: Kidney stone Daycare Provider Required: No Accompanied by: Self / Same As Patient Allergies penicillin V Allergy (Intermediate, Verified 07/15/25 09:07) hives lisinopril Adverse Reaction (Mild, Verified 07/15/25 09:07) scratchy throat Tobacco use date assessed: 04/12/25 HPI HPI Comments History of Present Illness Details 74-year-old male with history of prediab etes, hyperlipidemia, vitamin-D deficiency, coronary artery disease, paroxysmal atrial fibrillation presents to the office today for management of chronic conditions and for annual physical exam. He lives at home with his who is present in the office he feels safe there. He continues to work full-time and does enjoy this. Occasional alcohol use. He is a former cigarette smoker, only smoking 5 years. No drug use including marijuana. Paroxysmal atrial fibrillation-follows with [facility] annually. On Eliquis and rate controlled with metoprolol Prediabetes ANGIE-on CPAP HLD-not on statin Hypertension-on amlodipine, metoprolol Concerns: Left-sided low back pain with radiation into the groin and lower leg. Reports pain is constant at worst 8/10 and 6/10 if he takes Tylenol. Worse when lying d own, sitting, standing but not as bad when walking. Denies any paresthesias, weakness, saddle anesthesia, bowel dysfunction. His is concerned about nephrolithiasis given history. Denies any abdominal pain, flank pain, hematuria. Is noting dark urine but only drinks about 2 bottles of water on a daily basis. Does have a remote history of radiculopathy. Some improvement in symptom has been hunting forward. Health maintenance: Last colonoscopy 04/2022 with 5 year recall due to tubular adenoma. Dr. Kemla MACK: See HPI EXAM: Constitutional - Awake and Alert, No apparent distress Eyes - PERRL Cardiovascular - S1S2, RRR, No edema Respiratory - Normal lung expansion, Normal respiratory effort, No respiratory distress, CTA bilaterally Extremities - no calf tenderness bilaterally, no swelling MSK- midline and bilateral paraspinal tenderness to palpation at the level of about L4-S1 with significant pain over the left SI joint. Positive straight leg raises. Full flexion and extension. 3/5 strength LLE, 5/5 strength in the RLE. Asymmetric patellar reflexes- 2+ RLE, 1+ LLE. Downgoing babinski, sensation in tact Skin - Warm/Dry Neurological - Alert & oriented x3 Psychological - Appropriate affect PFSH Medical History (Updated 07/15/25 @ 09:39 by ERIN Bianchi) Dark urine Lumbar radiculopathy Pancreatitis Arthritis Renal calculi Decreased hearing of left ear Sleep apnea Paroxysmal atrial fibrillation CAD (coronary artery disease) Vitamin D deficiency Thyroid nodule Obesity HLD (hyperlipidemia) Prediabetes Surgical History History of esophagogastroduodenoscopy (EGD) Hx of lithotripsy Hx of cystoscopy H/O colonoscopy (~04/30/22) Hx of coronary artery bypass graft Hx of shoulder surgery History of tonsillectomy and adenoidectomy Hx of appendectomy Family History Father CVD (cardiovascular disease) Mother CVD (cardiovascular disease) Hypertension Social History Household Members: Spouse Are you a primary animal care attendant to a significant other at home: No Do you presently have visiting nurse or other home services: No Alcohol intake: current Alcohol intake frequency: holidays/special occasions only Patient Tobacco Use Status: Former Tobacco user Tobacco use type: Cigarette Cigarette Packs Per Day: 1 Years Smoked: 5 e-Cigarette/Vaping Use: Never Used Advance Directives Date on File: 05/03/22 Questionnaire Thrive Questionnaire Date Thrive assessed: 04/12/25 KEYONNA-7 AMB Questionnaire KEYONNA-7 Date KEYONNA - 7 assessed: 04/12/25 Source: Developed by Drs. Levi Santana, Natalie Aly, Mayank Fontanez and colleagues, with an educational fidelina from [employer]. Physical exam (Primary Care) Vital Signs: Last Vital Signs Temp 98.5 F 07/15/25 09:13 Pulse 73 07/15/25 09:13 Resp 18 07/15/25 09:13 BP 138/66 07/15/25 09:13 Pulse Ox 95 07/15/25 09:13 Oxygen Delivery Method Room Air 07/15/25 09:13 BMI result Body Mass Index 32.0 Tobacco/Smoking Status: Tobacco use Status Tobacco use date assessed 04/12/25 07/15/25 09:09 Patient Tobacco Use Status Former Tobacco user 07/15/25 09:09 Tobacco use type Cigarette 07/15/25 09:09 e-Cigarette/Vaping Use Never Used 07/15/25 09:09 Thrive Assessment: Date of Thrive Assessment Date Thrive assessed 04/12/25 07/15/25 09:09 Coding Level of Care Code Est Pt Level 4 (96144) Complex visit Add On G2211 Diagnoses Lumbar radiculopathy M54.16 Paroxysmal atrial fibrillation I48.0 Prediabetes R73.03 Assessment & Plan Assessment & Plan (1) Lumbar radiculopathy: Code(s): M54.16 - Radiculopathy, lumbar region Category: Medical Plan: Given associated decreased left-sided patellar reflex and weakness of the left lower extremity in severity of pain, MRI of the lumbar spine is ordered. He is given prescription for prednisone taper as well as Robaxin. Avoid NSAIDs given Eliquis use. He is referred to physical therapy as well (2) Paroxysmal atrial fibrillation: Comment: follows w/[facility] yearly Code(s): I48.0 - Paroxysmal atrial fibrillation Category: Medical Plan: Rate controlled. Continue Eliquis, metoprolol. Reviewed last cardiology note (3) Prediabetes: Comment: taking metformin-glucose usually under 100-last A1C 5.3%-dx 2017 Code(s): R73.03 - Prediabetes Category: Medical Plan: A1c pending. Can continue metformin. Diet lower in refined sugars and highly processed foods as well as simple carbohydrates Plan Follow-up in the office in 2 months as scheduled, labs to be completed as ordered Orders: Orders UA w Microscopic Today R82.998 - Other abnormal findings in urine MR lumbar spine wo con Today M54.16 - Radiculopathy, lumbar region, R29.2 - Abnormal reflex, R29.898 - Other symptoms and signs involving the musculoskeletal system PT Evaluation and Treatment Today M54.16 - Radiculopathy, lumbar region Referrals Pulmonology Referral G47.33 - Obstructive sleep apnea (adult) (pediatric) Medications: New prednisone see taper instructions; 40 mg Daily x3 days, 30 mg daily x3 days, 20 mg daily x3 days, 10 mg daily x3 days 10 mg PO DIRECTED 30 ea 0RF methocarbamol 500 mg PO TID PRN 30 tabs 0RF muscle spasm
[2025-07-15 09:13] VITALS: BP 138/66; PULSE 73; RESP 18; TEMP 36.9; O2SAT 95; BMI 32.0
== END 2025-07-15 11:18 | disposition home or self-care (01) ==
PROVIDERS: PCP Physician Assistant; Visit Provider Physician Assistant
DX: M54.16 Radiculopathy, lumbar region (principal); I48.0 Paroxysmal atrial fibrillation; R73.03 Prediabetes

== ENCOUNTER → 2025-07-15 09:05 | Outpatient (BNVA) | payer MEDICARE, SELFPAY | PROVIDERS: PCP Internal Medicine; Visit Provider Physician Assistant | DX: M54.16 Radiculopathy, lumbar region (principal); R29.898 Other symptoms and signs involving the musculoskeletal system; R29.2 Abnormal reflex; N20.0 Calculus of kidney; I48.0 Paroxysmal atrial fibrillation; R73.03 Prediabetes; G47.33 Obstructive sleep apnea (adult) (pediatric); E78.5 Hyperlipidemia, unspecified; I10 Essential (primary) hypertension; Z79.01 Long term (current) use of anticoagulants; Z99.89 Dependence on other enabling machines and devices; Z87.891 Personal history of nicotine dependence | CPT/HCPCS: 99212 ==

== ENCOUNTER 2025-07-24 10:36 | Outpatient (AMB) | payer MEDICARE, SELFPAY ==
--- NOTE | 2025-07-24 10:40 | A.OFFPC_ITS ---
Vital Signs 07/24/25 10:41 Height 5 ft 10.5 in Weight 103.476 kg BMI 32.3 BP 130/82 Blood Pressure Location Rt brachial Position Sitting Respiration 16 Pulse 70 Pulse Source Pulse Oximeter Temp 97.3 F Temp Source Temporal Artery Scan Pulse Oximetry (%) 97 Oxygen Delivery Method Room Air Intake Visit Reasons: Phlegm with green mucus Field Sales Engineer Required: No Accompanied by: Self / Same As Patient Allergies penicillin V Allergy (Intermediate, Verified 07/24/25 10:40) hives lisinopril Adverse Reaction (Mild, Verified 07/24/25 10:40) scratchy throat Medication List - Last Reconciled 07/24/25 by ERIN Bianchi amlodipine 2.5 mg PO BEDTIME apixaban (Eliquis) 5 mg PO BID azithromycin (Zithromax TRI-RENZO) For 500 mg dose pack: take 500 mg once daily for 3 days PO calcium carb-vitamin D3-vit K2 500 mg calcium- 200 unit-90 mcg tabs PO cinnamon bark 500 mg PO DAILY codeine-guaifenesin 10-200 mg/5 mL 10 mL PO Q6H PRN gabapentin 300 mg PO BEDTIME guaifenesin ER (Mucinex) 1,200 mg PO BID metformin ER 500 mg PO ONCE methocarbamol 500 mg PO TID PRN metoprolol succinate ER 50 mg PO BID omeprazole 20 mg PO DAILY 90 days prednisone 10 mg PO DIRECTED rosuvastatin 20 mg PO DAILY Tobacco use date assessed: 04/12/25 Fall risk assessment: 1 Fall in past year Last assessed Fall Risk: 07/24/25 Dental Screening Dental Screen Date: 07/24/25 Did you have a dental visit in the last 12 months?: Yes Did you have a dental problem in the last 6 months where you did not have access to dental care?: No Was dental information given to patient?: Patient has dentist HPI HPI Comments History of Present Illness Details 74-year-old male with history of prediab etes, hyperlipidemia, vitamin-D deficiency, coronary artery disease, paroxysmal atrial fibrillation presents to the office today for evaluation. Paroxysmal atrial fibrillation-follows with [facility] annually. On Eliquis and rate controlled with metoprolol Prediabetes ANGIE-compliant with CPAP but does not always clean as machine HLD-not on statin Hypertension-on amlodipine, metoprolol. BP 130/82 in the office Concerns: Productive cough ongoing for 2 days. Denies any sick contacts. No sore throat, congestion, sinus pressure, ear pain. Reports subjective fevers with sweats and occasional chills. He does endorse wheezing but no dyspnea or chest pains. No known history of chronic lung disease. He does have a history of smoking but quit over 60 years ago. Health maintenance: Last colonoscopy 04/2022 with 5 year recall due to tubular adenoma. Dr. Sommer ROS: See HPI EXAM: Constitutional - Awake and Alert, No apparent distress Eyes - PERRL Ears-external ears normal except for scabbing on the pinna bilaterally, canals clear, TMs visualized and pearly prabhakar and intact Mouth-no erythema or edema or exudates Cardiovascular - S1S2, RRR, No edema Respiratory - Normal lung expansion, Normal respiratory effort, No respiratory distress, diffuse wheezing bilaterally Extremities - no calf tenderness bilaterally, no swelling Skin - Warm/Dry Neurological - Alert & oriented x3 Psychological - Appropriate affect PFSH Medical History (Updated 07/24/25 @ 10:56 by ERIN Bianchi) Dark urine Lumbar radiculopathy Pancreatitis Arthritis Renal calculi Decreased hearing of left ear Sleep apnea Paroxysmal atrial fibrillation CAD (coronary artery disease) Vitamin D deficiency Thyroid nodule Obesity HLD (hyperlipidemia) Prediabetes Surgical History History of esophagogastroduodenoscopy (EGD) Hx of lithotripsy Hx of cystoscopy H/O colonoscopy (~04/30/22) Hx of coronary artery bypass graft Hx of shoulder surgery History of tonsillectomy and adenoidectomy Hx of appendectomy Family History Father CVD (cardiovascular disease) Mother CVD (cardiovascular disease) Hypertension Social History Household Members: Spouse Housing: House Are you a primary care coordination manager to a significant other at home: No Do you presently have visiting nurse or other home services: No Alcohol intake: current Alcohol intake frequency: holidays/special occasions only Patient Tobacco Use Status: Former Tobacco user Tobacco use type: Cigarette Cigarette Packs Per Day: 1 Years Smoked: 5 Packs Per Year: 5 e-Cigarette/Vaping Use: Never Used Advance Directives Date on File: 05/03/22 service: No Current occupational status: retired Questionnaire Thrive Questionnaire Date Thrive assessed: 04/12/25 AUDIT C Alcohol Use Questionnaire (AUDIT-C) 1. How often do you have a drink containing alcohol?: Monthly or less 2. How many drinks containing alcohol do you have on a typical day when you are drinking?: 1 or 2 3. How often do you have six or more drinks on one occasion?: Never Total Score: 1 KEYONNA-7 AMB Questionnaire KEYONNA-7 Date KEYONNA - 7 assessed: 04/12/25 Source: Developed by Drs. Levi Santana, Natalie Aly, Mayank Fontanez and colleagues, with an educational fidelina from [employer]. Physical exam (Primary Care) Vital Signs: Last Vital Signs Temp 97.3 F 07/24/25 10:41 Pulse 70 07/24/25 10:41 Resp 16 07/24/25 10:41 BP 130/82 07/24/25 10:41 Pulse Ox 97 07/24/25 10:41 Oxygen Delivery Method Room Air 07/24/25 10:41 BMI result Body Mass Index 32.3 Tobacco/Smoking Status: Tobacco use Status Tobacco use date assessed 04/12/25 07/24/25 10:40 Patient Tobacco Use Status Former Tobacco user 07/24/25 10:40 Tobacco use type Cigarette 07/24/25 10:40 e-Cigarette/Vaping Use Never Used 07/24/25 10:40 Thrive Assessment: Date of Thrive Assessment Date Thrive assessed 04/12/25 07/24/25 10:40 Coding Level of Care Code Est Pt Level 4 (86564) Diagnoses Productive cough R05.8 Severe obstructive sleep apnea G47.33 Assessment & Plan Assessment & Plan (1) Productive cough: Code(s): R05.8 - Other specified cough Category: Medical Plan: Suspect this is an acute bronchitis possibly triggered by viral infection. Chest x-ray ordered to rule out any infectious etiology such as pneumonia and is negative for any acute cardiopulmonary abnormality. He is prescribed prednisone 40 mg daily times 5 days. He can use albuterol inhaler every 4-6 hours as needed for wheezing, instructions on use provided in the office. Z-Renzo provided for pleiotropic effect. Given Robitussin with codeine to use as needed for cough. (2) Severe obstructive sleep apnea: Comment: AHI 36.6/hr with O2 joan of 78% Code(s): G47.33 - Obstructive sleep apnea (adult) (pediatric) Category: Medical Plan: Continue with CPAP compliance. Discussed that he should clean this regularly to prevent any bacterial overgrowth that could result in pulmonary infection. Plan Follow up in the office as scheduled. Workup as noted below, plan to be adjusted as indicated pending results Orders: Orders XR chest 2V Today R05.8 - Other specified cough Medications: New azithromycin (Zithromax TRI-RENZO) For 500 mg dose pack: take 500 mg once daily for 3 days PO 3 tabs 0RF albuterol sulfate 90 mcg/actuation (Ventolin HFA) 2 puffs inhalation Q6H PRN 8.5 grams 0RF shortness of breath or wheezing codeine-guaifenesin 10-200 mg/5 mL 10 mL PO Q6H PRN 473 mL 0RF cough
[2025-07-24 10:41] VITALS: BP 130/82; PULSE 70; RESP 16; TEMP 36.3; O2SAT 97; BMI 32.3
== END 2025-07-24 11:48 | disposition home or self-care (01) ==
LOC: HO.HMCHD 10:36
PROVIDERS: PCP Physician Assistant; Visit Provider Physician Assistant
DX: R05.8 Other specified cough (principal); G47.33 Obstructive sleep apnea (adult) (pediatric)

== ENCOUNTER 2025-07-24 10:36 | Outpatient (REF) | payer MEDICARE, SELFPAY ==
--- NOTE | ~2025-07-24 | XR_ITS ---
EXAMINATION: XR CHEST 2 VIEWS HISTORY: R05.8 - Other specified cough COMPARISON: Comparison is made with the prior examination dated 02/08/2025. FINDINGS: PA and lateral views of the chest are submitted. The lungs are expanded and clear. There is no pleural effusion, pneumothorax, or pulmonary vascular congestion. The heart is normal in size. The patient is status post median sternotomy and CABG. There is degenerative disc disease of the spine. XR/XR chest 2V IMPRESSION: No acute cardiopulmonary abnormality. Electronically signed by: Levi Ferrer MD 07/24/2025 12:[address] [facility]
== END 2025-07-24 10:37 | disposition home or self-care (01) ==
LOC: HO.XRAY 10:36
PROVIDERS: PCP Physician Assistant; Visit Provider Physician Assistant
DX: R05.8 Other specified cough (principal); I10 Essential (primary) hypertension; G47.33 Obstructive sleep apnea (adult) (pediatric); Z99.89 Dependence on other enabling machines and devices
CPT/HCPCS: 71046; 99212

== ENCOUNTER → 2025-07-24 11:38 | Outpatient (BNV) | payer MEDICARE, SELFPAY | PROVIDERS: PCP Physician Assistant; Visit Provider Radiology Diagnostic Radiology | DX: R05.8 Other specified cough (principal) | CPT/HCPCS: 71046 ==

== ENCOUNTER → 2025-08-17 08:57 | Outpatient (BNV) | payer MEDICARE, SELFPAY | PROVIDERS: PCP Physician Assistant; Visit Provider Radiology Diagnostic Radiology | DX: M54.16 Radiculopathy, lumbar region (principal); M51.369 Other intervertebral disc degeneration, lumbar region without mention of lumbar back pain or lower extremity pain; M48.061 Spinal stenosis, lumbar region without neurogenic claudication | CPT/HCPCS: 72148 ==

== ENCOUNTER 2025-08-17 09:01 | Outpatient (REF) | payer MEDICARE, SELFPAY | END 2025-08-17 09:02 | disposition home or self-care (01) | LOC: HO.MRI 09:01 | PROVIDERS: PCP Physician Assistant; Visit Provider Physician Assistant | DX: M54.16 Radiculopathy, lumbar region (principal); R29.898 Other symptoms and signs involving the musculoskeletal system; R29.2 Abnormal reflex | CPT/HCPCS: 72148 ==